=== PATIENT | female | born 1945 | race Caucasian/White ===

== ENCOUNTER → 2017-02-08 | Outpatient (CLI) | payer MEDICARE ==
--- NOTE | 2017-02-08 15:57 | REP ---
THYROID ULTRASOUND: Real-time sonographic evaluation of the thyroid performed and compared to prior study of 01/22/2016. Both lobes are again noted to be enlarged, right lobe measuring 6.6 x 3.7 x 3.4 cm and left lobe 5.7 x 2.6 x 2.5 cm. Multiple nodules and cysts bilaterally appear essentially unchanged compared to the prior exam. There are two adjacent nodules in the right mid aspect which appear stable, meauring 3.4 x 2.6 x 2.1 cm and 1.9 x 1.5 x 1.0 cm. Another adjacent subcentimeter nodule also appears stable measuring 8 mm in maximum diameter. Two cysts are seen in the lower pole measuring 1.4 x 1.1 x 1.2 cm and 1.2 x 0.8 x 1.3 cm. Left mid nodule is stable measuring 3.1 x 2.9 x 2.0 cm. Several small cysts are seen more inferiorly on the left, approximately four in number, measuring up to about 1.1 cm in diameter. IMPRESSION: Stable exam. Signed by Nelson Mccoy MD 02/08/2017 04:10 P
== END ==
LOC: M RAD 11:02
PROVIDERS: ATTEND Physician Assistant Surgical
DX: E04.2 Nontoxic multinodular goiter (principal)

== ENCOUNTER → 2018-02-08 | Outpatient (CLI) | payer MEDICARE | LOC: M RAD 09:09 | DX: E04.1 Nontoxic single thyroid nodule (principal) | CPT/HCPCS: 76536 ==

== ENCOUNTER → 2019-02-05 | Outpatient (CLI) | payer MEDICARE ==
--- NOTE | 2019-02-05 14:16 | REP ---
REASON FOR EXAM: Followup thyroid nodule. PRIOR: 02/08/2018 Today's examination shows the right lobe of the thyroid gland to measure 6.7 x 3.8 x 3.1 cm and left to measure 7.1 x 2.7 x 3 cm. Previously, the right lobe measured 5.8 x 3.3 x 3.3 cm and the left lobe measured 4.9 x 2.5 x 3.3 cm. Once again, there are numerous, multiple cystic and particularly solid nodules seen throughout both lobes including the isthmus. The isthmus today measures 6.2 mm, previously 9 mm. The large solid nodule seen previously on the right today measures 3.3 x 2.5 x 2.2 cm, essentially unchanged from the prior exam. The next largest nodule today measures 2.2 x 1.5 x 1 cm, essentially unchanged from the prior exam. The other smaller nodules are less than a centimeter and they too are unchanged. Left lobe of the thyroid gland, the large nodule previously measuring 2.5 x 2.1 x 2.3 cm today measures 3 x 2 x 1.9 cm. The next larger nodule seen today measures 1.7 x 1 x 1.3 cm, previously 1.2 x 1 x 1 cm. The other smaller nodules are unchanged. IMPRESSION: Thyromegaly and multiple nodules, as described above. Electronically Signed by Sarkis Celeste DO 02/05/2019 04:36 P
== END ==
LOC: M RAD 11:13
PROVIDERS: ATTEND Physician Assistant Surgical
DX: E05.20 Thyrotoxicosis with toxic multinodular goiter without thyrotoxic crisis or storm (principal)

== ENCOUNTER → 2019-02-08 | Outpatient (REF) | payer MEDICARE | LOC: M LAB REF 16:43 | PROVIDERS: ATTEND Surgery | DX: L72.3 Sebaceous cyst (principal) ==

== ENCOUNTER → 2019-03-01 | Outpatient (CLI) | payer MEDICARE ==
[~2019-03-01] MED LIST: LIDOCAINE 1% MDV 20ML VIAL As Ordered ONE
[2019-03-01 10:52] LABS: INR 1.13; PROTHROMBIN TIME 14.7 SECONDS (12.1-14.4)
--- NOTE | 2019-03-02 16:19 | REP ---
Ultrasound-guided bilateral thyroid biopsy This procedure was performed by ORIN Ortega, under the personal supervision of Dr. Mccoy. The patient has a history of a 3.8 x 3.0 x 2.5 cm nodule in the right lobe of the thyroid. As well as a 1.9 x 3.1 x 2.1 cm nodule in the left lobe of the thyroid on an ultrasound dated 02/05/2019. The risks and the benefits of the procedure were explained to the patient and informed consent was obtained both verbally and written. Directly prior to the start of the procedure, a formal time out was completed in the procedure room. Both of the right and left thyroid nodules were localized using ultrasound guidance. The skin was prepped and draped in a sterile fashion. 1% lidocaine was used as a local anesthetic. Using ultrasound guidance 4 fine-needle aspirations were obtained using 25 gauge needles of the right thyroid nodule. Using ultrasound guidance another 4 fine-needle aspirations were obtained using 25 gauge needles of the left thyroid nodule. The patient tolerated the procedure well and there were no immediate complications. After the appropriate amount of monitored convalescence the patient was discharged from the department. Reviewed by ORIN Ortega 03/01/2019 05:01 P Electronically Signed by Nelson Mccoy MD 03/02/2019 04:10 P
== END ==
LOC: M RADPRO 10:19
PROVIDERS: ATTEND Physician Assistant Surgical
DX: D44.0 Neoplasm of uncertain behavior of thyroid gland (principal); E04.2 Nontoxic multinodular goiter; I48.91 Unspecified atrial fibrillation; Z79.84 Long term (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 of oral hypoglycemic drugs; Z79.899 Other long term (current) drug therapy; Z87.891 Personal history of nicotine dependence

== ENCOUNTER 2019-06-20 08:29 | Day surgery (SDC) | payer MEDICARE ==
[~2019-06-20] VITALS: Ht 170.2 cm; Wt 99.8 kg
[~2019-06-20 08:29] MED LIST changes: +ATEN50TA2 PO; +GLIP5TAB20 PO; +HYDR25TAB PO; +JANT4TAB PO; -LIDOCAINE 1% MDV 20ML VIAL As Ordered ONE; +METF850T4 PO; +NS 1,000 ML IV ONE
[2019-06-20] MEDS ORDERED: PROPOFOL 200 MG/20 ML VIAL As Ordered ONE (10:24)
--- NOTE | 2019-06-20 10:39 | ROOR ---
Patient Name: Ania Harkins Procedure Date: 06/20/2019 10:12 AM Date of : 1945 Age: 74 Room: [facility] Gender: Female Note Status: Finalized Procedure: Colonoscopy Indications: Screening for colorectal malignant neoplasm Providers: DO Odalys Barry MD: Amanuel Jones MD Requesting Provider: Medicines: Propofol per Anesthesia Complications: No immediate complications. Procedure: Pre-Anesthesia Assessment: - Prior to the procedure, a History and Physical was performed, and patient medications and allergies were reviewed. The patient is competent. The risks and benefits of the procedure and the sedation options and risks were discussed with the patient. All questions were answered and informed consent was obtained. Patient identification and proposed procedure were verified by the physician, the nurse, the anesthesiologist and the tax examining technician in the endoscopy suite. Mental Status Examination: alert and oriented. Airway Examination: normal oropharyngeal airway and neck mobility. Respiratory Examination: clear to auscultation. CV Examination: normal. Prophylactic Antibiotics: The patient does not require prophylactic antibiotics. Prior Anticoagulants: The patient has taken Coumadin (warfarin), last dose was 4 days prior to procedure. ASA Grade Assessment: II - A patient with mild systemic disease. After reviewing the risks and benefits, the patient was deemed in satisfactory condition to undergo the procedure. The anesthesia plan was to use monitored anesthesia care (MAC). Immediately prior to administration of medications, the patient was re-assessed for adequacy to receive sedatives. The heart rate, respiratory rate, oxygen saturations, blood pressure, adequacy of pulmonary ventilation, and response to care were monitored throughout the procedure. The physical status of the patient was re-assessed after the procedure. The Colonoscope was introduced through the anus and advanced to the ascending colon. The colonoscopy was technically difficult and complex due to significant looping. Successful completion of the procedure was aided by applying abdominal pressure and performing the maneuvers documented (below) in this report. The patient tolerated the procedure well. Findings: A few small-mouthed diverticula were found in the sigmoid colon. Internal hemorrhoids were found during retroflexion. The hemorrhoids were mild and Grade I (internal hemorrhoids that do not prolapse). The exam was otherwise without abnormality on direct and retroflexion views. Impression: - Diverticulosis in the sigmoid colon. - Internal hemorrhoids. - The examination was otherwise normal on direct and retroflexion views. - No specimens collected. Recommendation: - Patient has a contact number available for emergencies. The signs and symptoms of potential delayed complications were discussed with the patient. Return to normal activities tomorrow. Written discharge instructions were provided to the patient. - Repeat colonoscopy in 10 years for screening purposes. - Return to my office PRN. Nelson Palm DO 06/20/2019 10:39:09 AM Electronically signed by Nelson Palm DO Number of Addenda: 0 Note Initiated On: 06/20/2019 10:12 AM Estimated Blood Loss: Estimated blood loss: none.
[2019-06-20 11:00] VITALS: BP 153/85
== END 2019-06-20 11:16 | disposition home or self-care (01) ==
LOC: M OPP 08:29
PROVIDERS: ATTEND Surgery
DX: Z12.11 Encounter for screening for malignant neoplasm of colon (principal); K64.0 First degree hemorrhoids; K57.30 Diverticulosis of large intestine without perforation or abscess without bleeding; E11.9 Type 2 diabetes mellitus without complications; I48.91 Unspecified atrial fibrillation; F17.210 Nicotine dependence, cigarettes, uncomplicated; Z88.8 Allergy status to other drugs, medicaments and biological substances

== ENCOUNTER → 2019-07-02 | Outpatient (CLI) | payer MEDICARE ==
[~2019-07-02] MED LIST changes: -NS 1,000 ML IV ONE
--- NOTE | 2019-07-02 13:39 | REP ---
REASON: Followup nodules. Multiple priors were reviewed, the latest of which is dated 02/05/2019. The right lobe of the thyroid gland measures 6.1 x 3.9 x 3.1 cm and left lobe measures 5.4 x 3.0 x 2.8 cm. The isthmus measures 6 mm. The prior examination showed the right lobe to measure 6.7 x 3.8 x 3.1 cm and left lobe to measure 7.1 x 2.7 x 3.0 cm with the isthmus measuring again 6 mm. Multiple solid nodules are seen bilaterally completely unchanged from the prior exam. The largest nodule on the right measured 3.5 x 2.5 x 2.4 cm and the next largest measured 2.7 x 1.7 x 1.4 cm with the third largest measuring 1.1 x 0.8 x 0.9 cm. These are unchanged. The largest three on the left measure 3.1 x 2.2 x 2.3 cm, 1.4 x 0.9 x 1.3 cm, and 1.0 x 0.9 x 0.8 cm. These are unchanged. IMPRESSION: No significant change from the prior exam. Multinodular goiter with thyromegaly as described above. Electronically Signed by Sarkis Celeste DO 07/02/2019 02:39 P
== END ==
LOC: M RAD 09:00
PROVIDERS: ATTEND Surgery
DX: E04.1 Nontoxic single thyroid nodule (principal)

== ENCOUNTER → 2020-07-07 | Outpatient (CLI) | payer MEDICARE ==
--- NOTE | 2020-07-14 14:26 | REP ---
THYROID ULTRASOUND COMPARISON: 07/02/2019 as well as other prior exams. FINDINGS: Both lobes of the thyroid are enlarged with diffuse heterogeneous echotexture. Right lobe measures 6.1 x 3.7 x 2.9 cm and left lobe 5.5 x 2.8 x 2.8 cm. Two adjacent solid heterogeneous nodules in the mid right lobe are stable in size, the larger measuring 3.4 x 2.4 x 2.1 cm and the other along the lateral aspect measuring 2.3 x 1.3 x 1.3 cm. There is a simple cyst in the right lower pole 1.3 cm in diameter. In the left upper pole, there is a complex solid nodule which is stable in size measuring 3.1 x 2.3 x 2.3 cm. Just below that there is a cyst with a thick septation 1.3 x 1.1 x 1.1 cm, slightly increased since prior study when it measured about 1 cm in diameter. There is an anechoic simple cyst in the isthmus 6 mm in diameter and another anechoic simple cyst in the left lower pole 1.6 x 1.2 x 1.5 cm. IMPRESSION: Thyromegaly with stable bilateral solid thyroid nodules as discussed above. MTDD
== END ==
LOC: M RAD 09:47
PROVIDERS: ATTEND Surgery
DX: E04.1 Nontoxic single thyroid nodule (principal)

== ENCOUNTER → 2020-07-21 | Outpatient (REF) | payer MEDICARE | LOC: M SFHCPLAZ 17:18 | PROVIDERS: ATTEND Physician Assistant | DX: B35.3 Tinea pedis (principal) | CPT/HCPCS: 87101; G0463 ==

== ENCOUNTER 2020-08-26 09:07 | Outpatient (RCR) | payer MEDICARE | END 2020-09-01 | LOC: M PT 09:07 | PROVIDERS: ATTEND Physician Assistant | DX: M51.36 Other intervertebral disc degeneration, lumbar region (principal); M47.896 Other spondylosis, lumbar region ==

== ENCOUNTER 2020-09-12 10:41 | Outpatient (RCR) | payer MEDICARE | END 2020-10-02 | LOC: M PT 10:41 | PROVIDERS: ATTEND Physician Assistant | DX: Z47.89 Encounter for other orthopedic aftercare (principal); M51.36 Other intervertebral disc degeneration, lumbar region; M47.896 Other spondylosis, lumbar region ==

== ENCOUNTER → 2020-10-23 | Outpatient (REF) | payer MEDICARE ==
[~2020-10-23] MED LIST changes: +HYDR-3490 PO; -HYDR25TAB PO
[2020-10-23 17:01] LABS: INR 1.87; PROTHROMBIN TIME 21.9 SECONDS (12.5-14.3)
== END ==
LOC: M LAB REF 16:09
PROVIDERS: ATTEND Family Medicine
DX: Z51.81 Encounter for therapeutic drug level monitoring (principal)

== ENCOUNTER → 2020-11-19 | Outpatient (CLI) | payer MEDICARE ==
[~2020-11-19] MED LIST changes: +CEPH500C PO
--- NOTE | 2020-11-19 15:13 | REP ---
INDICATION: RED SWOLLEN LLE, R/O DVT. COMPARISON: None. TECHNIQUE: Left lower extremity duplex venous ultrasound. FINDINGS: The deep veins are anechoic and fully compressible from the groin to the popliteal fossa in the left lower extremity. Color flow imaging is homogeneous. Spectral Doppler interrogation demonstrates intact respiratory variation in flow and normal manual augmentation of flow. There is no evidence of deep vein thrombosis. IMPRESSION: Negative left lower extremity duplex venous ultrasound. No evidence of deep vein thrombosis. <Electronically signed by Enoc Galindo > 11/19/20 [id number]
== END ==
LOC: M RAD 14:34
PROVIDERS: ATTEND Registered Nurse
DX: M79.89 Other specified soft tissue disorders (principal); M79.662 Pain in left lower leg

== ENCOUNTER 2020-11-24 09:43 | Inpatient (IN) | payer MEDICARE ==
[~2020-11-24] VITALS: Ht 170.2 cm; Wt 96.9 kg
[~2020-11-24 09:43] MED LIST changes: -CEPH500C PO
[2020-11-24] MEDS ORDERED: CEPH500C PO (09:50)
--- OUTSIDE RECORDS SUMMARY | 2020-11-24 10:41 | CCD | Continuity of Care Document ---
Author Author Ania ARRIAGA [facility] Organization Unknown Address [address] [facility] [address] [place] [address] Phone [phone] Care Team Providers Care Assistant Media Planner Name Role Phone Amanuel Jones MD AUTM [phone] Alber Agustin MD AUTM [phone] Hector Roblero III, MD AUTM Unavailable [facility] AUTM Problems Active Problems Provider Date Type 2 diabetes mellitus ALLISON Lyons Onset: 01/22/20 15 Atrial fibrillation Amanuel Jones M.D. Onset: 03/31/2015 Hyperlipoproteinemia Onset: Essential hypertension Amanuel Jones M.D. Onset: 5 Social History Type Date Description Comments Sex Unknown ETOH Use Rarely consumes alcohol Tobacco Use Start: Unknown End: Unknown Patient is a former smoker quit 2010 Allergies, Adverse Reactions, Alerts Active Allergies Reaction Severity Comments Date Vasotec 01/21/2015 Zocor 01/21/2015 Lipitor 01/21/2015 Medications Active Medications SIG Qnty Indications Ordering Provide r Date Cephalexin 750mg Capsules take one capsule by mouth bid x 7 days 14caps Felipe Spain MD 11/03 Ciclopirox Olamine 0.77% Cream apply to area on foot twice a day 60gm Amanuel Jones M.D. Cozaar 100mg Tablets 1 by mouth every day 90tabs Amanuel Jones M.D. 12/12/2018 Accu-Chek Kathleen Plus Strips test twice a day or as directed dx:e11.9 100units Amanuel Jones M.D. 06/30/2018 Crestor 5mg Tablets 1/2 by mouth by mouth 3 x per week 14tabs I48.2 Amanuel Jones M.D. 02/19/2016 Metformin HCL 850mg Tablets 1 by mouth three times a day 270tabs Charlene Gonzalez DO 08/22/2015 Hydrochlorothiazide 25mg Tablets 1 by mouth every day 90sarah Jones M.D. 08/21/2015 Jantoven 4mg Tablets 1 daily or as directed 90tayamilet Jones M.D. Atenolol 50mg Tablets 1 by mouth every morning and 1/2 tablet each evening 135tayamilet chiu M.D. Glipizide ER 5mg Tablets ER 24HR 1 tablet by mouth three times a day 270sarah Jones M.D. History Medications Cephalexin 500mg Capsules take one tablet by mouth 2 times daily x 7 days 14caps BRANDI Caputo JR 05/26/2020 - 06/27/2020 Administration Of Flu Vaccine Inj ection Unknown Medications Administered in Office Medication SIG Qnty Indications Ordering Provider Date Administration Of Flu Vaccine Inj mirna Jones M.D. 06/18/2020 Immunization Adminstration,1 Vaccine/Tox oid Injection Amanuel Jones M.D. 019 Administration Of Flu Vaccine Inj mirna Jones M.D. 07/31/2019 Administration Of Flu Vaccine Inj mirna Jones M.D. 06/30/2018 Administration Of Flu Vaccine Inj monicaion Amanuel Jones M.D. 07/26/2017 Administration Of Flu Vaccine Inj mirna Jones M.D. 09/07/2016 Administration Of Flu Vaccine Inj mirna Jones M.D. 08/05/2015 Immunizations CPT Code Status Date Vaccine Lot # 53675 Given 06/18/2020 Influenza Vaccin e Quadrivalent Preser/Antibiotic Free Im Use [id number] 25027 Given 09/10/2019 Pneumovax 23 [id number] 90490 Given 09/10/2019 Adacel- Tetanus Diphtheria P ertussis (Age64 & Under) [id number] 61900 Given 07/31/2019 Influenza Vaccin e Quadrivalent Preser/Antibiotic Free Im Use [id number] 02072 Given 06/30/2018 Influenza Virus Vaccine, Quadrivalent (Cciiv4), Derived From 4 Given 07/26/2017 Influenza Vaccin e Quadrivalent Preser/Antibiotic Free Im Use [id number] Q2037 Given 09/07/2016 Fluvirin Virus Vaccine 50166 01 Q2037 Given 08/05/2015 Fluvirin Virus Vaccine 91110 01 38238 Given 08/06/2014 Influenza Virus Vaccine 50851 Given 07/25/2013 Influenza Virus Vaccine 94805 Given 07/20/2012 Influenza Virus Vaccine 25384 Given 07/13/2011 Influenza Virus Vaccine 87834 Given 07/13/2011 Influenza Virus Vaccine 77641 Given 10/05/2010 Pneumovax 23 31748 Given 07/03/2010 Influenza Virus Vaccine 44791 Given 12/03/2002 Adacel- Tetanus Diphtheria P ertussis (Age64 & Under) Vital Signs Date Vital Result Comment 11/19/2020 1:41pm BP Systolic 104 mmHg RT Arm BP Diastolic 60 mmHg RT Arm Heart Rate 80 /min Height 66 inches 5'6" Weight 216.00 lb BMI (Body Mass Index) 34.9 kg/m2 10/07/2020 10:56am Weight 216.00 lb Results Test Acquired Date Facility Test Result H/L Range Note Complete Blood Count 11/19/2020 [facility] Swimming Instructor: [place] [address] [phone] WBC 10.8 x10*3/UL 4.1 - 10.9 RBC 3.90 x10*6/UL Low 4.20 - 6.30 Hemoglobin 11.1 g/dL Low 12.0 - 18.0 1 Hematocrit 32.7 % Low 37.0 - 51.0 MCV 83.8 fL 80.0 - 97.0 MCH 28.4 pg 26.0 - 32.0 MCHC 33.9 g/dL 31.0 - 38.0 RDW 14.6 % High 11.6 - 13.7 PLT 345 x10*3/UL 140 - 440 MPV 8.8 FL 7.8 - 11.0 Lymph % 9.2 % Low 10.0 - 58.5 Mid % 3.0 % 1.7 - 9.3 Neut % 87.8 % 37.0 - 92.0 Lymph # 1.0 x10*3/UL 0.6 - 4.1 Mid # 0.3 x10*3/UL 0.1 - 0.6 Neut # 9.5 x10*3/UL High 2.0 - 7.8 Laboratory test finding 11/19/2020 [facility] Swimming Instructor: [place] [address] [phone] Sed Rate 55 mm/hr High 0 - 15 Laboratory test finding 11/19/2020 [facility] [address] [place] [address] [phone] High Sensitivity C-Reactive Protein <pending> Xray 10/28/2020 [facility] [address] [place] [address] [phone] Dexa/Bone Density <pending> 3D Bi-Lateral Mammogram <pending> Prothrombin Time/Inr 10/23/2020 [facility] [address] [place] [address] [phone] Prothrombin Time 21.9 seconds High 12.5-14.3 Inr 1.87 Normal 2 Laboratory test finding 10/07/2020 [facility] 2.4 Complete Blood Count 09/12/2020 [facility] Swimming Instructor: [place] [address] [phone] WBC 9.1 x10*3/UL 4.1 - 10.9 RBC 4.04 x10*6/UL Low 4.20 - 6.30 Hemoglobin 12.0 g/dL 12.0 - 18.0 Hematocrit 35.2 % Low 37.0 - 51.0 MCV 87.0 fL 80.0 - 97.0 MCH 29.8 pg 26.0 - 32.0 MCHC 34.2 g/dL 31.0 - 38.0 RDW 14.0 % High 11.6 - 13.7 PLT 393 x10*3/UL 140 - 440 MPV 8.7 FL 7.8 - 11.0 Lymph % 12.1 % 10.0 - 58.5 Mid % 3.1 % 1.7 - 9.3 Neut % 84.8 % 37.0 - 92.0 Lymph # 1.1 x10*3/UL 0.6 - 4.1 Mid # 0.3 x10*3/UL 0.1 - 0.6 Neut # 7.7 x10*3/UL 2.0 - 7.8 A1c 09/12/2020 [facility] , Swimming Instructor: Dr Felipe [place] [address] [phone] Hba1c 7.4 % High <5.7 3 Est Avg Glucose 166 mg/dL High 60 - 110 Comprehensive Chem Profile 09/12/2020 [facility], Swimming Instructor: Dr Felipe [place] [address] [phone] Glucose 241 mg/dL High 74 - 99 4 BUN 24 mg/dL High 7 - 18 Creatinine 0.9 mg/dL 0.6 - 1.3 Sodium 141 mEq/L 136 - 145 Potassium 4.6 mEq/L 3.5 - 5.1 Chloride 102 mEq/L 98 - 107 Carbon Dioxide 29 mEq/L 21 - 32 Calcium 9.6 mg/dL 8.5 - 10.1 Alk. Phosphatase 103 mg/dL 46 - 116 Total Bilirubin 0.6 mg/dL 0.2 - 1.0 Ast (Sgot) 17 U/L 15 - 37 Alt (SGPT) 26 U/L 12 - 78 Albumin 3.5 g/dL 3.4 - 5.0 Total Protein 7.2 g/dL 6.4 - 8.2 A/G Ratio 0.95 CALC Low 1.00 - 1.90 GFR >= 60 mL/min >60 GFR >= 60 mL/min >60 5 Laboratory test finding 09/12/2020 [facility] Swimming Instructor: Dr Felipe [place] [address] [phone] Thyroid Stimulating Hormone 1.88 uIU/mL 0.3 6 - 3.74 Laboratory test finding 09/03/2020 [facility] 1.7 Laboratory test finding 08/19/2020 [facility] 1.4 Laboratory test finding 07/18/2020 [facility] 1.7 Microalbumin/Creatinine Urine 06/27/2020 [facility], Swimming Instructor: Dr Felipe [place] [address] [phone] Microalbumin Urine 19.2 mg/L 1.3 - 20.0 Urine Creatinine 44.5 mg/dL 30.0 - 125.0 Microalb/Creat Ratio 43.1 ug/mg High 0.0 - 30.0 A1c 06/26/2020 [facility]: Dr Felipe [place] [address] [phone] Hba1c 7.9 % High <5.7 6 Est Avg Glucose 180 mg/dL High 60 - 110 Comprehensive Chem Profile 06/26/2020 [facility] Sw[facility] Instructor: [place] [address] [phone] Glucose 136 mg/dL High 74 - 99 7 BUN 19 mg/dL High 7 - 18 Creatinine 0.9 mg/dL 0.6 - 1.3 Sodium 137 mEq/L 136 - 145 Potassium 3.9 mEq/L 3.5 - 5.1 Chloride 100 mEq/L 98 - 107 Carbon Dioxide 28 mEq/L 21 - 32 Calcium 9.0 mg/dL 8.5 - 10.1 Alk. Phosphatase 93 mg/dL 46 - 116 Total Bilirubin 0.5 mg/dL 0.2 - 1.0 Ast (Sgot) 15 U/L 15 - 37 Alt (SGPT) 22 U/L 12 - 78 Albumin 3.4 g/dL 3.4 - 5.0 Total Protein 7.2 g/dL 6.4 - 8.2 A/G Ratio 0.89 CALC Low 1.00 - 1.90 GFR >= 60 mL/min >60 GFR >= 60 mL/min >60 8 Lipid Profile 06/26/2020 [facility] Sw[facility] Instructor: Dr Felipe [place] [address] [phone] Cholesterol 177 mg/dL 131 - 200 Triglycerides 99 mg/dL 30 - 150 HDL Cholesterol 51 mg/dL 35 - 60 LDL (Calculated) 106 CALC 50 - 159 Laboratory test finding 06/18/2020 [facility] 1.7 1 NOTE: RESULT VERIFIED. 2 THERAPUTIC HUMAN INR VALUES INDICATIONS NORMAL RANGES PROPHYLAXIS/TREATMENT OF: VENOUS THROMBOSIS 2.0-3.0 PULMONARY EMBOLISM 2.0-3.0 PREVENTION OF SYSTEMIC EMBOLISM FROM: TISSUE HEART VALVES 2.0-3.0 ACUTE MYOCARDIAL INFARCTION 2.0-3.0 VALVULAR HEART DISEASE 2.0-3.0 ATRIAL FIBRILLATION 2.0-3.0 MECHANICAL VALVES(HIGH RISK) 2.5-3.5 RECURRENT MYOCARDIAL INFARCTION 2.5-3.5 3 Lab Result Notes: Pre-Diabetes 5.7 - 6.4 % Diabetes = or > 6.5% 4 100-125 mg/dL PRE-DIABET ES/FASTING >126 mg/dL DIABETES/FASTING 5 CHRONIC KIDNEY DISEASE STAGI NG PER NKF STAGE I & II GFR >= 60 NORMAL TO MILDLY DECREASED STAGE III GFR 30-59 MODERATELY DECREASED STAGE IV GFR 15-29 SEVERELY DECREASED STAGE V GFR <15 VERY LITTLE GFR LEFT ESRD GFR <15 ON SWIMMING POOL ATTENDANT 6 Lab Result Notes: Pre-Diabetes 5.7 - 6.4 % Diabetes = or > 6.5% 7 100-125 mg/dL PRE-DIABET ES/FASTING >126 mg/dL DIABETES/FASTING 8 CHRONIC KIDNEY DISEASE STAGI NG PER NKF STAGE I & II GFR >= 60 NORMAL TO MILDLY DECREASED STAGE III GFR 30-59 MODERATELY DECREASED STAGE IV GFR 15-29 SEVERELY DECREASED STAGE V GFR <15 VERY LITTLE GFR LEFT ESRD GFR <15 ON SWIMMING POOL ATTENDANT Procedures Date Code Description Status 11/06/2020 [id number] Mammogram Completed 10/28/2020 [id number] Bone Mineral Density Test Comple [facility] 10/28/2020 [id number] Mammogram Completed 05/22/2020 [id number] Diabetic Retinal Eye Exam Comple [facility] 03/27/2020 [id number] Diabetic Retinal Eye Exam Comple [facility] 10/12/2019 [id number] Mammogram Completed 10/09/2019 [id number] Diabetic Retinal Eye Exam Comple [facility] 06/20/2019 [id number] Colonoscopy Completed 12/14/2018 [id number] Diabetic Retinal Eye Exam Comple [facility] 11/13/2018 [id number] Diabetic Retinal Eye Exam Comple [facility] 09/29/2018 [id number] Mammogram Completed 04/07/2018 971731814 Diabetic Retinal Eye Exam Comple [facility] 12/20/2017 [id number] Diabetic Retinal Eye Exam Comple [facility] 12/14/2017 [id number] Diabetic Retinal Eye Exam Comple [facility] 09/27/2017 [id number] Mammogram Completed 06/09/2017 [id number] Diabetic Retinal Eye Exam Comple meet 04/07/2017 [id number] Diabetic Retinal Eye Exam Comple meet 11/25/2016 [id number] Diabetic Retinal Eye Exam Comple meet 09/23/2016 [id number] Mammogram Completed 02/01/2016 [id number] Diabetic Foot Exam Completed 01/21/2016 [id number] Diabetic Foot Exam Completed 01/20/2016 [id number] Diabetic Foot Exam Completed 10/14/2015 [id number] Diabetic Retinal Eye Exam Comple [facility] 09/04/2015 [id number] Mammogram Completed 02/26/2015 [id number] Diabetic Retinal Eye Exam Comple [facility] 08/03/2014 [id number] Mammogram Completed 08/25/2011 [id number] Bone Mineral Density Test Comple [facility] 09/10/2008 [id number] Colonoscopy Completed 2007 [id number] Bone Mineral Density Test [facility] Medical Devices Description No Information Available Encounters Type Date Location Provider Dx Diagnosis Office Visit 09/24/2020 9:00a [facility] Amanuel Jones M.D. 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 Yoav Tobin JR, PA L03.116 Cellulitis of left lower [place] b Assessments Date Code Description Provider 11/19/2020 R60.0 Localized edema Anders Sarmiento NP 11/19/2020 M79.662 Pain in left lower leg ALLISON Krishnamurthy 10/23/2020 Z51.81 Encounter for therapeutic drug l evel monitoring Amanuel Jones M.D. 10/23/2020 Z51.81 Encounter for therapeutic drug l evel monitoring Lab Schedule 10/23/2020 I48.21 Permanent atrial fibrillation Rowdy Jones M.D. 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 09/24/2020 I48.20 Chronic atrial fibrillation, uns pecgladis Jones M.D. 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 09/24/2020 E11.65 Type 2 diabetes mellitus with hy perglycemia Amanuel Jones M.D. 09/24/2020 M48.07 Spinal stenosis, lumbosacral reg ion Amanuel Jones M.D. 09/24/2020 E11.42 Type 2 diabetes mellitus with di abetic polyneuropathy Amanuel Jones M.D. 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 09/12/2020 I48.20 Chronic atrial fibrillation, uns pecgladis Jones M.D. 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 09/12/2020 Z79.01 [facility] (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 Lab Schedule 09/12/2020 E11.65 Type 2 diabetes mellitus with hy perglycemia Amanuel Jones M.D. 09/12/2020 E11.65 Type 2 diabetes mellitus with hy perglycemia Lab Schedule 09/12/2020 E78.00 Pure hypercholesterolemia, unspe cified Amanuel Jones M.D. 09/12/2020 E78.00 Pure hypercholesterolemia, unspe cified Lab Schedule 09/03/2020 Z51.81 Encounter for therapeutic drug l evel monitoring Lila Le Gates, [facility] PSYCHI[facility] 09/03/2020 Z51.81 Encounter for therapeutic drug l evel monitoring Protime 09/03/2020 I48.20 Chronic atrial fibrillation, uns pecified Lila Le Gates, [facility] 09/03/2020 I48.20 Chronic atrial fibrillation, uns pecified Protime 09/03/2020 Z79.01 terminal make up operator (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 Lila Le Gates, [facility] 09/03/2020 Z79.01 terminal make up operator (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 Protime 08/19/2020 Z51.81 Encounter for therapeutic drug l evel monitoring Lila Le Gates, [facility] 08/19/2020 Z51.81 Encounter for therapeutic drug l evel monitoring Protime 08/19/2020 I48.20 Chronic atrial fibrillation, uns pecified Lila Le Gates, [facility] 08/19/2020 I48.20 Chronic atrial fibrillation, uns pecified Protime 08/19/2020 Z79.01 terminal make up operator (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 Lila Le Gates, [facility] 08/19/2020 Z79.01 terminal make up operator (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 Protime 07/18/2020 Z51.81 Encounter for therapeutic drug l evel monitoring Lial Le Gates, [facility] 07/18/2020 Z51.81 Encounter for therapeutic drug l evel monitoring Protime 07/18/2020 I48.20 Chronic atrial fibrillation, uns pecified Lila Le Gates, [facility] 07/18/2020 I48.20 Chronic atrial fibrillation, uns pecified Protime 07/18/2020 Z79.01 [facility] (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 Lila Le Gates, [facility] 07/18/2020 Z79.01 [facility] (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 Protime 06/27/2020 E11.65 Type 2 diabetes mellitus with hy perglycemia Amanuel Jones M.D. 06/27/2020 Z13.89 Encounter for screening for othe r disorder Amanuel Jones M.D. 06/27/2020 E78.00 Pure hypercholesterolemia, unspe cified Amanuel Jones M.D. 06/27/2020 I48.20 Chronic atrial fibrillation, uns pecified Amanuel Jones M.D. 06/27/2020 Z79.01 [facility] (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 Amanuel Jones M.D. 06/27/2020 M48.07 Spinal stenosis, lumbosacral reg ion Amanuel Jones M.D. 06/27/2020 E11.42 Type 2 diabetes mellitus with di abetic polyneuropathy Amanuel Jones M.D. 06/27/2020 E11.319 Type 2 diabetes mellitus with un specified diabetic retinopat Amanuel Jones M.D. 06/27/2020 M81.0 Age-related osteoporosis without current pathological fracture Amanuel Jones M.D. 06/27/2020 I73.9 Peripheral vascular disease, uns pecgladis Jones M.D. 06/26/2020 E11.65 Type 2 diabetes mellitus with hy perglycemia Amanuel Jones M.D. 06/26/2020 E11.65 Type 2 diabetes mellitus with hy perglycemia Lab Schedule 06/26/2020 E78.00 Pure hypercholesterolemia, unspe cified Amanuel Jones M.D. 06/26/2020 E78.00 Pure hypercholesterolemia, unspe cified Lab Schedule 06/26/2020 I10 Essential (primary) hypertension Amanuel Jones M.D. 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 06/18/2020 Z23 Encounter for immunization Proti me 05/26/2020 L03.116 Cellulitis of left lower limb Ro kane Tobin JR, PA Plan of Treatment Future Appointment(s):* 11/24/2020 11:15 am - [facility] at [facility] * 02/13/2021 11:30 am - Amanuel Jones M.D. at [facility] 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 * M81.0 Age-related osteoporosis w/o current pathological fracture * I73.9 Peripheral vascular disease, unspecified * Functional Status Description No Information Available Mental Status Description No Information Available Referrals Refer to Reason for Referral Status Appt Date Sole Watson DO URGENT CONSULT FOR ABNORMAL MAMMOGRAM [facility] [address] [place] [address] [phone] [facility] TWISTING OPERATOR CONSULT FOR CELLULITIS LT FOOT Sent 06/12/2020 [address] [place] [address] [phone]
--- OUTSIDE RECORDS SUMMARY | 2020-11-24 10:41 | CCD | Continuity of Care Document ---
Author Author Ania ARRIAGA [facility] Organization Unknown Address [address] [facility] [address] [place] [address] Phone [phone] Care Team Providers Care Ug Designer Name Role Phone Amanuel Jones MD AUTM [phone] Alber Agustin MD AUTM [phone] Hector Roblero III, MD AUTM Unavailable [facility] AUTM Problems Active Problems Provider [...] SIG Qnty Indications Ordering Provide r Date Ciclopirox Olamine 0.77% Cream apply to area [...] 25mg Tablets 1 by mouth every day 90tayamilet Jones M.D. 08/21/2015 Jantoven 4mg Tablets 1 [...] M.D. 019 Administration Of Flu Vaccine Inj monicaion Amanuel Jones M.D. 07/31/2019 Administration Of Flu Vaccine Inj monicaion Amanuel Jones M.D. 06/30/2018 Administration Of Flu Vaccine Inj monicaion Amanuel Jones M.D. 07/26/2017 Administration Of Flu Vaccine Inj monicaion Amanuel Jones M.D. 09/07/2016 Administration Of Flu Vaccine Inj monicaion Amanuel Jones M.D. 08/05/2015 Immunizations CPT Code Status Date Vaccine Lot # [id number] Given 06/18/2020 Influenza Vaccin e Quadrivalent Preser/Antibiotic Free Im Use [id number] 14439 Given 09/10/2019 Pneumovax 23 [id number] 93800 Given 09/10/2019 Adacel- Tetanus Diphtheria P ertussis (Age64 & Under) [id number] 31169 Given 07/31/2019 Influenza Vaccin e Quadrivalent Preser/Antibiotic Free Im Use [id number] 80628 Given 06/30/2018 Influenza Virus Vaccine, Quadrivalent ([id number]), Derived From 2 Given 07/26/2017 Influenza Vaccin e Quadrivalent Preser/Antibiotic Free Im Use [id number] Q2037 Given 09/07/2016 Fluvirin Virus Vaccine [id number] 01 Q2037 Given 08/05/2015 Fluvirin Virus Vaccine 82348 01 00432 Given 08/06/2014 Influenza Virus Vaccine 35089 Given 07/25/2013 Influenza Virus Vaccine 49316 Given 07/20/2012 Influenza Virus Vaccine 28898 Given 07/13/2011 Influenza Virus Vaccine 28587 Given 07/13/2011 Influenza Virus Vaccine 64684 Given 10/05/2010 Pneumovax 23 37657 Given 07/03/2010 Influenza Virus Vaccine 10751 Given 12/03/2002 Adacel- Tetanus Diphtheria P ertussis (Age64 & Under) Vital Signs Date Vital Result Comment 11/19/2020 1:41pm BP Systolic 104 mmHg RT Arm BP Diastolic 60 mmHg RT Arm Heart Rate 80 /min Height 66 inches 5'6" Weight 216.00 lb BMI (Body Mass Index) 34.9 kg/m2 10/07/2020 10:56am Weight 216.00 lb Results Test Acquired Date Facility Test Result H/L Range Note Laboratory test finding 11/19/2020 [facility] o[facility] lawrence Adult Crossing Guard: [place] [address] [phone] Sed Rate <pending> Laboratory test finding 11/19/2020 [facility] [address] [place] [address] [phone] High Sensitivity C-Reactive Protein <pending> Xray 10/28/2020 [facility] [address], [place] [id number] [phone] Dexa/Bone Density <pending> 3D Bi-Lateral Mammogram <pending> Prothrombin Time/Inr 10/23/2020 [facility] [address] [place] [address] [phone] Prothrombin Time 21.9 seconds High 12.5-14.3 Inr 1.87 Normal 1 Laboratory test finding 10/07/2020 [facility] 2.4 Complete Blood Count 09/12/2020 [facility] Adult Crossing Guard: [place] [address] [phone] WBC 9.1 x10*3/UL 4.1 - 10.9 RBC [...] 7.7 x10*3/UL 2.0 - 7.8 A1c 09/12/2020 [facility] Adult Crossing Guard: [place] [address] [phone] Hba1c 7.4 % High <5.7 2 Est Avg Glucose 166 mg/dL High 60 - 110 Comprehensive Chem Profile 09/12/2020 [facility] Adult Crossing Guard: [place] [address] [phone] Glucose 241 mg/dL High 74 - 99 3 BUN 24 mg/dL High 7 - 18 [...] mL/min >60 GFR >= 60 mL/min >60 4 Laboratory test finding 09/12/2020 [facility] isnaldo, Adult Crossing Guard: Dr Felipe Spain [place], [place] [id number] [phone] Thyroid Stimulating Hormone 1.88 uIU/mL 0.3 6 - 3.74 Laboratory test finding 09/03/2020 [facility] 1.7 Laboratory test finding 08/19/2020 [facility] 1.4 Laboratory test finding 07/18/2020 [facility] 1.7 Microalbumin/Creatinine Urine 06/27/2020 [facility], Adult Crossing Guard: [place] [address] [phone] Microalbumin Urine 19.2 mg/L 1.3 - 20.0 Urine Creatinine 44.5 mg/dL 30.0 - 125.0 Microalb/Creat Ratio 43.1 ug/mg High 0.0 - 30.0 A1c 06/26/2020 [facility] , Adult Crossing Guard: Dr Felipe Spain [place], [place] [address] [phone] Hba1c 7.9 % High <5.7 5 Est Avg Glucose 180 mg/dL High 60 - 110 Comprehensive Chem Profile 06/26/2020 [facility], Adult Crossing Guard: Dr Felipe Spain [place], [place] [address] [phone] Glucose 136 mg/dL High 74 - 99 6 BUN 19 mg/dL High 7 - 18 [...] mL/min >60 GFR >= 60 mL/min >60 7 Lipid Profile 06/26/2020 [facility] Adult Crossing Guard: Dr Felipe Spain [place], [place] [address] [phone] Cholesterol 177 mg/dL 131 - 200 Triglycerides 99 mg/dL 30 - 150 HDL Cholesterol 51 mg/dL 35 - 60 LDL (Calculated) 106 CALC 50 - 159 Laboratory test finding 06/18/2020 [facility] 1.7 1 THERAPUTIC HUMAN INR VALUES INDICATIONS NORMAL RANGES PROPHYLAXIS/TREATMENT OF: VENOUS THROMBOSIS 2.0-3.0 PULMONARY EMBOLISM 2.0-3.0 PREVENTION OF SYSTEMIC EMBOLISM FROM: TISSUE HEART VALVES 2.0-3.0 ACUTE MYOCARDIAL INFARCTION 2.0-3.0 VALVULAR HEART DISEASE 2.0-3.0 ATRIAL FIBRILLATION 2.0-3.0 MECHANICAL VALVES(HIGH RISK) 2.5-3.5 RECURRENT MYOCARDIAL INFARCTION 2.5-3.5 2 Lab Result Notes: Pre-Diabetes 5.7 - 6.4 % Diabetes = or > 6.5% 3 100-125 mg/dL PRE-DIABET ES/FASTING >126 mg/dL DIABETES/FASTING 4 CHRONIC KIDNEY DISEASE STAGI NG PER NKF STAGE I & II GFR >= 60 NORMAL TO MILDLY DECREASED STAGE III GFR 30-59 MODERATELY DECREASED STAGE IV GFR 15-29 SEVERELY DECREASED STAGE V GFR <15 VERY LITTLE GFR LEFT ESRD GFR <15 ON PRINTED CIRCUIT BOARD PANELS DEBURRER 5 Lab Result Notes: Pre-Diabetes 5.7 - 6.4 % Diabetes = or > 6.5% 6 100-125 mg/dL PRE-DIABET ES/FASTING >126 mg/dL DIABETES/FASTING 7 CHRONIC KIDNEY DISEASE STAGI NG PER NKF STAGE I & II GFR >= 60 NORMAL TO MILDLY DECREASED STAGE III GFR 30-59 MODERATELY DECREASED STAGE IV GFR 15-29 SEVERELY DECREASED STAGE V GFR <15 VERY LITTLE GFR LEFT ESRD GFR <15 ON PRINTED CIRCUIT BOARD PANELS DEBURRER Procedures Date Code Description Status 11/06/2020 [id number] Mammogram Completed 10/28/2020 [id number] Bone Mineral Density Test [facility] 10/28/2020 [id number] Mammogram Completed 05/22/2020 [id number] Diabetic Retinal Eye Exam [facility] 03/27/2020 064082360 Diabetic Retinal Eye Exam [facility] 10/12/2019 [id number] Mammogram Completed 10/09/2019 [id number] Diabetic Retinal Eye Exam [facility] 06/20/2019 [id number] Colonoscopy Completed 12/14/2018 [id number] Diabetic Retinal Eye Exam [facility] 11/13/2018 [id number] Diabetic Retinal Eye Exam [facility] 09/29/2018 [id number] Mammogram Completed 04/07/2018 [id number] Diabetic Retinal Eye Exam [facility] 12/20/2017 [id number] Diabetic Retinal Eye Exam [facility] 12/14/2017 490922172 Diabetic Retinal Eye Exam [facility] 09/27/2017 [id number] Mammogram Completed 06/09/2017 776628164 Diabetic Retinal Eye Exam [facility] 04/07/2017 [id number] Diabetic Retinal Eye Exam [facility] 11/25/2016 985023968 Diabetic Retinal Eye Exam [facility] 09/23/2016 74658520 Mammogram Completed 02/01/2016 [id number] Diabetic Foot Exam Completed 01/21/2016 [id number] Diabetic Foot Exam Completed 01/20/2016 911400729 Diabetic Foot Exam Completed 10/14/2015 [id number] Diabetic Retinal Eye Exam [facility] 09/04/2015 [id number] Mammogram Completed 02/26/2015 501415823 Diabetic Retinal Eye Exam [facility] 08/03/2014 [id number] Mammogram Completed 08/25/2011 905756332 Bone Mineral Density Test [facility] 09/10/2008 [id number] Colonoscopy Completed 2007 670680821 Bone Mineral Density Test [facility] Medical Devices Description No Information Available Encounters Type Date Location Provider Dx Diagnosis Office Visit 09/24/2020 9:00a [facility] Jones M.D. 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 10/23/2020 Z51.81 Encounter for therapeutic drug l evel monitoring Lab Schedule 10/23/2020 I48.21 Permanent atrial fibrillation Rowdy Jones M.D. 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 09/24/2020 I48.20 Chronic atrial fibrillation, uns pecified Amanuel Jones M.D. 09/24/2020 Z79.01 longterm (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 Amanuel Jones [...] 09/12/2020 I48.20 Chronic atrial fibrillation, uns pecified Amanuel Jones M.D. 09/12/2020 I48.20 Chronic atrial fibrillation, uns pecified Lab Schedule 09/12/2020 Z79.01 longterm (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 Amanuel Jones M.D. 09/12/2020 Z79.01 longterm (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 Lab Schedule 09/12/2020 E11.65 Type 2 diabetes mellitus with hy perglycemia Amanuel Jones M.D. 09/12/2020 E11.65 Type 2 diabetes mellitus with hy perglycemia Lab Schedule 09/12/2020 E78.00 Pure hypercholesterolemia, unspe cified Amanuel Jones M.D. 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 Protime 08/19/2020 Z51.81 Encounter for therapeutic drug l evel monitoring Lila Marlene [place], [facility] 08/19/2020 Z51.81 Encounter for therapeutic drug l evel monitoring Protime 08/19/2020 I48.20 Chronic atrial fibrillation, uns pecified Lila Mendez, [facility] 08/19/2020 I48.20 Chronic atrial fibrillation, uns pecified Protime 08/19/2020 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 rat exterminator (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 Lila Mendez, [facility] 08/19/2020 Z79.01 rat exterminator (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 Protime 07/18/2020 Z51.81 Encounter for therapeutic drug l evel monitoring Lila [place], CREDIT CLERK 07/18/2020 Z51.81 Encounter for therapeutic drug l evel monitoring Protime 07/18/2020 I48.20 Chronic atrial fibrillation, uns pecified Lila Mendez, CREDIT CLERK 07/18/2020 I48.20 Chronic atrial fibrillation, uns pecified Protime 07/18/2020 Z79.01 rat exterminator (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 Lila Rosario Mila, CREDIT CLERK 07/18/2020 Z79.01 rat exterminator (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 Protime 06/27/2020 E11.65 Type 2 diabetes mellitus with hy perglycemia Amanuel Jones M.D. 06/27/2020 Z13.89 Encounter for screening for othe r disorder Amanuel Jones M.D. 06/27/2020 E78.00 Pure hypercholesterolemia, unspe cibrittany Jones M.D. 06/27/2020 I48.20 Chronic atrial fibrillation, uns victoria Jones M.D. 06/27/2020 Z79.01 longterm (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 Amanuel Jones [...] Chronic atrial fibrillation, uns pecified Lila Mendez, CREDIT CLERK 06/18/2020 I48.20 Chronic atrial fibrillation, uns pecified Protime 06/18/2020 Z51.81 Encounter for therapeutic drug l evel monitoring Lila Mendez, CREDIT CLERK 06/18/2020 Z51.81 Encounter for therapeutic drug l evel monitoring Protime 06/18/2020 Z79.01 longterm (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 Lila Mendez, CREDIT CLERK 06/18/2020 Z79.01 longterm (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 Protime 06/18/2020 Z23 Encounter for immunization Amanuel Jones M.D. 06/18/2020 Z23 Encounter for immunization Proti me 05/26/2020 L03.116 Cellulitis of left lower limb Ro kane Tobin JR, PA Plan of Treatment Future Appointment(s):* 11/24/2020 11:15 am - [facility] at [facility] * 02/13/2021 11:30 am - Amanuel Jones M.D. at [facility] 06/27/2020 - Amanuel Jones M.D.* E11.65 Type 2 diabetes mellitus with hyperglycemia * Z13.89 Encounter for screening for other disorder * E78.00 Pure hypercholesterolemia, unspecified * I48.20 Chronic atrial fibrillation, unspecified * Z79.01 longterm (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 of anticoagulants * M48.07 Spinal [...] MAMMOGRAM Created [facility] [place] [id number] [phone] [facility] DIRECTOR SCRIPT CONSULT FOR CELLULITIS LT FOOT Sent 06/12/2020 [address] [place] [address] [phone]
--- OUTSIDE RECORDS SUMMARY | 2020-11-24 10:41 | CCD | Continuity of Care Document ---
Author Author Lab Schedule, Ania Marquez Organization Unknown Address [address] [address] Phone Unavailable Care Team Providers Care Pharmacy Tech Name Role Phone Amanuel Jones MD AUTM [phone] Alber Agustin MD AUTM [phone] Hector Roblero III, MD AUTM Unavailable [facility] AUTM Problems Active Problems Provider Date Type 2 diabetes mellitus ALLSION [place] Onset: 01/22/20 15 Atrial fibrillation Amanuel [...] 1 by mouth three times a day 270tayamilet Gonzalez DO 08/22/2015 Hydrochlorothiazide 25mg Tablets 1 by mouth every day 90sarah Jones M.D. 08/21/2015 Jantoven 4mg Tablets 1 daily or as directed 90tayamilet Jones M.D. Atenolol 50mg Tablets 1 by mouth every morning and 1/2 tablet each evening 135sarah chiu M.D. Glipizide ER 5mg Tablets ER [...] M.D. 09/07/2016 Administration Of Flu Vaccine Inj ection Amanuel Jones M.D. 08/05/2015 Immunizations CPT Code Status Date Vaccine Lot # [id number] Given 06/18/2020 Influenza Vaccin e Quadrivalent Preser/Antibiotic Free Im Use [id number] Given 09/10/2019 Pneumovax 23 [id number] [id number] Given 09/10/2019 Adacel- Tetanus Diphtheria P ertussis (Age64 & Under) [id number] Given 07/31/2019 Influenza Vaccin e Quadrivalent Preser/Antibiotic Free Im Use [id number] 29382 Given 06/30/2018 Influenza Virus Vaccine, Quadrivalent ([id number]), Derived From 6 Given 07/26/2017 Influenza Vaccin e Quadrivalent Preser/Antibiotic Free Im Use [id number] Given 09/07/2016 Fluvirin Virus Vaccine [id number] 01 [id number] Given 08/05/2015 Fluvirin Virus Vaccine 91669 01 30495 Given 08/06/2014 Influenza Virus Vaccine 51147 Given 07/25/2013 Influenza Virus Vaccine 27964 Given 07/20/2012 Influenza Virus Vaccine 46702 Given 07/13/2011 Influenza Virus Vaccine 91877 Given 07/13/2011 Influenza Virus Vaccine 26278 Given 10/05/2010 Pneumovax 23 62651 Given 07/03/2010 Influenza Virus Vaccine 88943 Given 12/03/2002 Adacel- Tetanus Diphtheria P ertussis (Age64 & Under) Vital Signs Date Vital Result Comment 10/07/2020 10:56am Weight 216.00 lb 09/24/2020 8:53am BP Systolic 110 mmHg BP Diastolic 54 mmHg Heart Rate 86 /min Height 66 inches 5'6" Weight 214.00 lb O2 % BldC Oximetry 93 % BMI (Body Mass Index) 34.5 kg/m2 Results Test Acquired Date Facility Test Result H/L Range Note Prothrombin Time/Inr 10/23/2020 [facility] enter [address] [place] [address] [phone] Prothrombin Time 21.9 seconds High 12.5-14.3 Inr 1.87 Normal 1 Laboratory test finding 10/07/2020 [facility] 2.4 Complete Blood Count 09/12/2020 [facility] Teasel Setter: [place] [address] [phone] WBC 9.1 x10*3/UL 4.1 - 10.9 RBC [...] 7.7 x10*3/UL 2.0 - 7.8 A1c 09/12/2020 [facility] , Teasel Setter: [place] [address] [phone] Hba1c 7.4 % High <5.7 2 Est Avg Glucose 166 mg/dL High 60 - 110 Comprehensive Chem Profile 09/12/2020 [facility], Teasel Setter: [place] [address] [phone] Glucose 241 mg/dL High 74 - 99 [...] mL/min >60 4 Laboratory test finding 09/12/2020 [facility] Teasel Setter: [place] [address] [phone] Thyroid Stimulating Hormone 1.88 uIU/mL 0.3 6 - 3.74 Laboratory test finding 09/03/2020 [facility] 1.7 Laboratory test finding 08/19/2020 [facility] In[facility] 1.4 Laboratory test finding 07/18/2020 [facility] Inr 1.7 Microalbumin/Creatinine Urine 06/27/2020 [facility]: Dr Felipe [place] [id number] [phone] Microalbumin Urine 19.2 mg/L 1.3 - 20.0 Urine Creatinine 44.5 mg/dL 30.0 - 125.0 Microalb/Creat Ratio 43.1 ug/mg High 0.0 - 30.0 A1c 06/26/2020 [facility]: [place] [address] [phone] Hba1c 7.9 % High <5.7 5 Est Avg Glucose 180 mg/dL High 60 - 110 Comprehensive Chem Profile 06/26/2020 [facility]el [facility]: Dr [place] [address] [phone] Glucose 136 mg/dL High 74 - 99 [...] 60 mL/min >60 7 Lipid Profile 06/26/2020 [facility] Te[facility]el [facility]: Dr [place] [address] [phone] Cholesterol 177 mg/dL 131 - 200 Triglycerides 99 mg/dL 30 - 150 HDL Cholesterol 51 mg/dL 35 - 60 LDL (Calculated) 106 CALC 50 - 159 Laboratory test finding 06/18/2020 [facility] In[facility] 1.7 Laboratory test finding 05/09/2020 [facility] Inr 1.6 1 THERAPUTIC HUMAN INR VALUES INDICATIONS NORMAL [...] LITTLE GFR LEFT ESRD GFR <15 ON HOME HEALTH SCHEDULER 5 Lab Result Notes: Pre-Diabetes 5.7 - [...] LITTLE GFR LEFT ESRD GFR <15 ON HOME HEALTH SCHEDULER Procedures Date Code Description Status 05/22/2020 [id number] Diabetic Retinal Eye Exam [facility] 03/27/2020 [id number] Diabetic Retinal Eye Exam [facility] 10/12/2019 [id number] Mammogram Completed 10/09/2019 [id number] Diabetic Retinal Eye Exam [facility]ple [facility] 06/20/2019 [id number] Colonoscopy Completed 12/14/2018 [id number] Diabetic Retinal Eye Exam [facility]ple [facility] 11/13/2018 [id number] Diabetic Retinal Eye Exam [facility]ple [facility] 09/29/2018 [id number] Mammogram Completed 04/07/2018 [id number] Diabetic Retinal Eye Exam [facility] 12/20/2017 [id number] Diabetic Retinal Eye Exam [facility]ple [facility] 12/14/2017 [id number] Diabetic Retinal Eye Exam [facility] 09/27/2017 [id number] Mammogram Completed 06/09/2017 [id number] Diabetic Retinal Eye Exam [facility] 04/07/2017 [id number] Diabetic Retinal Eye Exam [facility] 11/25/2016 [id number] Diabetic Retinal Eye Exam [facility] 09/23/2016 [id number] Mammogram Completed 02/01/2016 [id number] Diabetic Foot Exam Completed 01/21/2016 [id number] Diabetic Foot Exam Completed 01/20/2016 [id number] Diabetic Foot Exam Completed 10/14/2015 [id number] Diabetic Retinal Eye Exam [facility] 09/04/2015 [id number] Mammogram Completed 02/26/2015 [id number] Diabetic Retinal Eye Exam [facility] 08/03/2014 [id number] Mammogram Completed 08/25/2011 [id number] Bone Mineral Density Test [facility] 09/10/2008 [id number] Colonoscopy Completed 2007 [id number] Bone Mineral Density Test [facility] Medical Devices Description No Information Available Encounters Type Date Location Provider Dx Diagnosis Office Visit 09/24/2020 9:00a [facility] Amanuel Jones M.D. 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 Yoav Tobin JR, PA L03.116 Cellulitis of left lower [place] b Assessments Date Code Description Provider 10/23/2020 Z51.81 Encounter for therapeutic drug l evel monitoring Amanuel Jones M.D. 10/23/2020 Z51.81 Encounter for therapeutic drug l evel monitoring Lab Schedule 10/23/2020 I48.21 Permanent atrial fibrillation Rowdy Jones M.D. 10/23/2020 I48.21 Permanent atrial fibrillation [place] b Schedule 10/07/2020 Z51.81 Encounter for therapeutic drug l evel monitoring ALLISON Lyons 10/07/2020 Z51.81 Encounter for therapeutic drug l evel monitoring [facility] 10/07/2020 I48.20 Chronic atrial fibrillation, uns pecified Lila Mendez, [employer] 10/07/2020 I48.20 Chronic atrial fibrillation, uns pecified [facility] 10/07/2020 Z79.01 [facility] (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 Lila Mendez, [employer] SAL[employer] DIRECTOR 10/07/2020 Z79.01 [facility] (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 [facility] 09/24/2020 E78.00 Pure hypercholesterolemia, unspe cibrittany Jones M.D. 09/24/2020 I48.20 Chronic atrial fibrillation, uns pecgladis Jones M.D. 09/24/2020 Z79.01 [facility] (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 [...] fibrillation, uns pecified Lab Schedule 09/12/2020 Z79.01 [facility] (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 of antic oagulannaldo Jones M.D. 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 09/12/2020 E11.65 Type 2 diabetes mellitus with hy perglycemia Lab Schedule 09/12/2020 E78.00 Pure hypercholesterolemia, unspe cibrittany Jones M.D. 09/12/2020 E78.00 Pure hypercholesterolemia, unspe cified Lab Schedule 09/03/2020 Z51.81 Encounter for therapeutic drug l evel monitoring Lila Marlene Doña [place], [employer] SAL[employer] DIRECTOR 09/03/2020 Z51.81 Encounter for therapeutic drug l evel monitoring [facility] 09/03/2020 I48.20 Chronic atrial fibrillation, uns pecified Lila Marlene Do[place], 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 08/19/2020 Z51.81 Encounter for therapeutic drug l evel monitoring [facility] 08/19/2020 I48.20 Chronic atrial fibrillation, uns pecified Lila Mendez, [facility] 08/19/2020 I48.20 Chronic atrial fibrillation, uns pecified [facility] 08/19/2020 Z79.01 [facility] (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 Lila Mendez, [facility] 08/19/2020 Z79.01 [facility] (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 [facility] 07/18/2020 Z51.81 Encounter for therapeutic drug l evel monitoring Lila Mendez, [facility] 07/18/2020 Z51.81 Encounter for therapeutic drug l evel monitoring Pro[facility] 07/18/2020 I48.20 Chronic atrial fibrillation, uns pecified Lila Mendez, 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 07/18/2020 Z79.01 [facility] (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 [facility] 06/27/2020 E11.65 Type 2 diabetes mellitus with hy perglycemia Amanuel Jones M.D. 06/27/2020 Z13.89 Encounter for screening for othe r disorder Amanuel Jones M.D. 06/27/2020 E78.00 Pure hypercholesterolemia, unspe cified Amanuel Jones M.D. 06/27/2020 I48.20 Chronic atrial fibrillation, uns pecified Amanuel Jones M.D. 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 06/27/2020 M48.07 Spinal stenosis, lumbosacral reg ion Amanuel Jones M.D. 06/27/2020 E11.42 Type 2 diabetes mellitus with di abetic polyneuropathy Amanuel Jones M.D. 06/27/2020 E11.319 Type 2 diabetes mellitus with un specified diabetic retinopat Amanuel Jones M.D. 06/27/2020 M81.0 Age-related osteoporosis without current pathological fracture Amanuel Jones M.D. 06/27/2020 I73.9 Peripheral vascular disease, uns pecified Amanuel Jones M.D. 06/26/2020 E11.65 Type 2 [...] Chronic atrial fibrillation, uns pecified Lila Mendez [facility] 06/18/2020 I48.20 Chronic atrial fibrillation, uns pecified [facility] 06/18/2020 Z51.81 Encounter for therapeutic drug l evel monitoring Lila Mendez [facility] 06/18/2020 Z51.81 Encounter for therapeutic drug l evel monitoring Protime 06/18/2020 Z79.01 [facility] (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 Lila Mendez [facility] 06/18/2020 Z79.01 [facility] (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 Protime 06/18/2020 Z23 Encounter for immunization Amanuel Jones M.D. 06/18/2020 Z23 Encounter for immunization Proti me 05/26/2020 L03.116 Cellulitis of left lower limb Clara Tobin JR, PA 05/09/2020 I48.20 Chronic atrial fibrillation, uns pecified GOLDY LyonsP 05/09/2020 I48.20 Chronic atrial fibrillation, uns pecified [facility] 05/09/2020 Z51.81 Encounter for therapeutic drug l evel monitoring Lila Menedz [employer] 05/09/2020 Z51.81 Encounter for therapeutic drug l evel monitoring Protime 05/09/2020 Z79.01 [facility] (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 Lila Rosario Mila [employer] SAL[employer] DIRECTOR Plan of Treatment Future Appointment(s):* 11/24/2020 11:15 am - [facility] at [facility] * 02/13/2021 11:30 am - Amanuel Jones M.D. at [facility] 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 Hypercholesterolemia: We did not obtain lipids today. History of intolerance to number of statins. Had done well in the past with diet and low-dose Crestor. We will monitor.2. Chronic atrial fibrillation: Asymptomatic. Rate is controlled, is on Coumadin. We will continue to monitor.3. 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 She is getting monitored appropriately.4. Type 2 diabetes mellitus with hyperglycemia: A1c has decreased further, although not at strict goal. Less eating out has helped. Nutrition (needs to cook some) discussed. Salt an issue we discussed as well. 5. Spinal stenosis, lumbosacral region: She is doing well generally. Encouraged her to be active. We will monitor.6. Type 2 diabetes mellitus with diabetic polyneuropathy: Following with [facility] for wound on her left foot, will continue to follow up appropriately. We will monitor. 7. 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 She will continue to follow with Ophthalmology (Dr. Agustin). We will monitor.Ongoing cares: I am going to see her again in 4-5 months with CMP, lipids, HgbA1c, CBC and EKG. If she has new problems or issues sooner she will let us know. Functional Status Description No Information Available Mental Status Description No Information Available Referrals Refer to Reason for Referral Status Appt Date [facility] [employer] CONSULT FOR CELLULITIS LT FOOT Sent 06/12/2020 [address] [place] [address] [phone]
--- OUTSIDE RECORDS SUMMARY | 2020-11-24 10:42 | CCD | Continuity of Care Document ---
Author Author Lab Schedule, Ania Marquez Organization Unknown Address [address] [address] Phone Unavailable Care Team Providers Care Pipe Testing Technician Name Role Phone Amanuel Jones MD AUTM [phone] Alber Agustin MD AUTM [phone] Hector Roblero III, MD AUTM Unavailable [facility] AUTM Problems Active Problems [...] M.D. 06/18/2020 Immunization Adminstration,1 Vaccine/Tox oid Injection Amaunel Jones M.D. 019 Administration Of Flu Vaccine Inj monicaion Amanuel Jones M.D. 07/31/2019 Administration Of Flu Vaccine Inj monicaion Amanuel Jones M.D. 06/30/2018 Administration Of Flu Vaccine Inj monicaion Amanuel Jones M.D. 07/26/2017 Administration Of Flu Vaccine Inj monicaion Amanuel Jones M.D. 09/07/2016 Administration Of Flu Vaccine Inj ection Amanuel Jones M.D. 08/05/2015 Immunizations CPT Code Status Date Vaccine Lot # [id number] Given 06/18/2020 Influenza Vaccin e Quadrivalent Preser/Antibiotic Free Im Use [id number] Given 09/10/2019 Pneumovax 23 [id number] 45638 Given 09/10/2019 Adacel- Tetanus Diphtheria P ertussis (Age64 & Under) [id number] 98039 Given 07/31/2019 Influenza Vaccin e Quadrivalent Preser/Antibiotic Free Im Use [id number] 85083 Given 06/30/2018 Influenza Virus Vaccine, Quadrivalent ([id number]), Derived From 2 Given 07/26/2017 Influenza Vaccin e Quadrivalent Preser/Antibiotic Free Im Use [id number] Given 09/07/2016 Fluvirin Virus Vaccine 30116 01 Q2037 Given 08/05/2015 Fluvirin Virus Vaccine 10437 01 03622 Given 08/06/2014 Influenza Virus Vaccine 03599 Given 07/25/2013 Influenza Virus Vaccine 09142 Given 07/20/2012 Influenza Virus Vaccine 18792 Given 07/13/2011 Influenza Virus Vaccine 20484 Given 07/13/2011 Influenza Virus Vaccine 94402 Given 10/05/2010 Pneumovax 23 60763 Given 07/03/2010 Influenza Virus Vaccine 48812 Given 12/03/2002 Adacel- Tetanus Diphtheria P ertussis [...] Result H/L Range Note Laboratory test finding 10/07/2020 [facility] 2.4 Complete Blood Count 09/12/2020 [facility] Technical Support Professional: Dr Felipe Spain [place] [id number] [phone] WBC 9.1 x10*3/UL 4.1 - 10.9 RBC [...] 7.7 x10*3/UL 2.0 - 7.8 A1c 09/12/2020 [facility] , Technical Support Professional: [place] [address] [phone] Hba1c 7.4 % High <5.7 1 Est Avg Glucose 166 mg/dL High 60 - 110 Comprehensive Chem Profile 09/12/2020 [facility], Technical Support Professional: [place] [address] [phone] Glucose 241 mg/dL High 74 - 99 2 BUN 24 mg/dL High 7 - 18 [...] mL/min >60 GFR >= 60 mL/min >60 3 Laboratory test finding 09/12/2020 [facility], Technical Support Professional: [place] [address] [phone] Thyroid Stimulating Hormone 1.88 uIU/mL 0.3 6 - 3.74 Laboratory test finding 09/03/2020 [facility] 1.7 Laboratory test finding 08/19/2020 [facility] 1.4 Laboratory test finding 07/18/2020 [facility] 1.7 Microalbumin/Creatinine Urine 06/27/2020 [facility], Technical Support Professional: [place] [address] [phone] Microalbumin Urine 19.2 mg/L 1.3 - 20.0 Urine Creatinine 44.5 mg/dL 30.0 - 125.0 Microalb/Creat Ratio 43.1 ug/mg High 0.0 - 30.0 A1c 06/26/2020 [facility] , Technical Support Professional: [place] [address] [phone] Hba1c 7.9 % High <5.7 4 Est Avg Glucose 180 mg/dL High 60 - 110 Comprehensive Chem Profile 06/26/2020 [facility], Technical Support Professional: [place] [address] [phone] Glucose 136 mg/dL High 74 - 99 5 BUN 19 mg/dL High 7 - 18 [...] mL/min >60 GFR >= 60 mL/min >60 6 Lipid Profile 06/26/2020 [facility] , Technical Support Professional: [place] [address] [phone] Cholesterol 177 mg/dL 131 - 200 Triglycerides 99 mg/dL 30 - 150 HDL Cholesterol 51 mg/dL 35 - 60 LDL (Calculated) 106 CALC 50 - 159 Laboratory test finding 06/18/2020 [facility] 1.7 Laboratory test finding 05/09/2020 [facility] 1.6 1 Lab Result Notes: Pre-Diabetes 5.7 - 6.4 % Diabetes = or > 6.5% 2 100-125 mg/dL PRE-DIABET ES/FASTING >126 mg/dL DIABETES/FASTING 3 CHRONIC KIDNEY DISEASE STAGI NG PER NKF STAGE I & II GFR >= 60 NORMAL TO MILDLY DECREASED STAGE III GFR 30-59 MODERATELY DECREASED STAGE IV GFR 15-29 SEVERELY DECREASED STAGE V GFR <15 VERY LITTLE GFR LEFT ESRD GFR <15 ON PROCUREMENT TECHNICIAN 4 Lab Result Notes: Pre-Diabetes 5.7 - 6.4 % Diabetes = or > 6.5% 5 100-125 mg/dL PRE-DIABET ES/FASTING >126 mg/dL DIABETES/FASTING 6 CHRONIC KIDNEY DISEASE STAGI NG PER NKF STAGE I & II GFR >= 60 NORMAL TO MILDLY DECREASED STAGE III GFR 30-59 MODERATELY DECREASED STAGE IV GFR 15-29 SEVERELY DECREASED STAGE V GFR <15 VERY LITTLE GFR LEFT ESRD GFR <15 ON PROCUREMENT TECHNICIAN Procedures Date Code Description Status 05/22/2020 [id number] Diabetic Retinal Eye Exam [facility] 03/27/2020 [id number] Diabetic Retinal Eye Exam [facility] 10/12/2019 [id number] Mammogram Completed 10/09/2019 [id number] Diabetic Retinal Eye Exam [facility] 06/20/2019 [id number] Colonoscopy Completed 12/14/2018 [id number] Diabetic Retinal Eye Exam [facility] 11/13/2018 [id number] Diabetic Retinal Eye Exam [facility] 09/29/2018 [id number] Mammogram Completed 04/07/2018 [id number] Diabetic Retinal Eye Exam [facility] 12/20/2017 [id number] Diabetic Retinal Eye Exam [facility] 12/14/2017 [id number] Diabetic Retinal Eye Exam [facility] 09/27/2017 [id number] Mammogram Completed 06/09/2017 [id number] Diabetic Retinal Eye Exam [facility] 04/07/2017 [id number] Diabetic Retinal Eye Exam [facility] 11/25/2016 [id number] Diabetic Retinal Eye Exam [facility] 09/23/2016 [id number] Mammogram Completed 02/01/2016 [id number] Diabetic Foot Exam Completed 01/21/2016 [id number] Diabetic Foot Exam Completed 01/20/2016 [id number] Diabetic Foot Exam Completed 10/14/2015 [id number] Diabetic Retinal Eye Exam [facility] 09/04/2015 [id number] Mammogram Completed 02/26/2015 [id number] Diabetic Retinal Eye Exam [facility] 08/03/2014 [id number] Mammogram Completed 08/25/2011 [id number] Bone Mineral Density Test [facility] 09/10/2008 [id number] Colonoscopy Completed 2007 [id number] Bone Mineral Density Test [facility] Medical Devices Description No Information Available Encounters Type Date Location Provider Dx Diagnosis Office Visit 09/24/2020 9:00a [facility] M.[facility] 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 Office Visit 05/26/2020 10:20a [facility] PSher Tobin JR, [place] L03.116 Cellulitis of left lower [place] b Assessments Date Code Description Provider 10/07/2020 Z51.81 Encounter for therapeutic drug l evel monitoring Lila Mendez [facility] 10/07/2020 Z51.81 Encounter for therapeutic drug l evel monitoring Protime 10/07/2020 I48.20 Chronic atrial fibrillation, uns pecified Lila Mendez [facility] 10/07/2020 I48.20 Chronic atrial fibrillation, uns pecified Protime 10/07/2020 Z79.01 supervisor intermediates (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 Lila Mendez [facility] 10/07/2020 Z79.01 supervisor intermediates (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 Protime 09/24/2020 E78.00 Pure hypercholesterolemia, unspe cified Amanuel Jones M.D. 09/24/2020 I48.20 Chronic atrial fibrillation, uns pecified Amanuel Jones M.D. 09/24/2020 Z79.01 supervisor intermediates (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 Amanuel Jones [...] fibrillation, uns pecified Lab Schedule 09/12/2020 Z79.01 supervisor intermediates (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 Amanuel Jones M.D. 09/12/2020 Z79.01 supervisor intermediates (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 Lab Schedule 09/12/2020 E11.65 Type 2 diabetes mellitus with hy perglycemia Amanuel Jones M.D. 09/12/2020 E11.65 Type 2 diabetes mellitus with hy perglycemia Lab Schedule 09/12/2020 E78.00 Pure hypercholesterolemia, unspe cified Amanuel Jones M.D. 09/12/2020 E78.00 Pure hypercholesterolemia, unspe cified Lab Schedule 09/03/2020 Z51.81 Encounter for therapeutic drug l evel monitoring Lila Mendez, [facility] 09/03/2020 Z51.81 Encounter for therapeutic drug l evel monitoring Protime 09/03/2020 I48.20 Chronic atrial fibrillation, uns pecified Lila Mendez, [facility] 09/03/2020 I48.20 Chronic atrial fibrillation, uns pecified Protime 09/03/2020 Z79.01 care home (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 Lila Mendez, [facility] 09/03/2020 Z79.01 supervisor intermediates (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 Protime 08/19/2020 Z51.81 Encounter for therapeutic drug l evel monitoring Lila Mendez, [facility] 08/19/2020 Z51.81 Encounter for therapeutic drug l evel monitoring Protime 08/19/2020 I48.20 Chronic atrial fibrillation, uns pecified Lila Mendez, [facility] 08/19/2020 I48.20 Chronic atrial fibrillation, uns pecified Protime 08/19/2020 Z79.01 supervisor intermediates (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 Lila Mendez, [facility] 08/19/2020 Z79.01 supervisor intermediates (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 Protime 07/18/2020 Z51.81 Encounter for therapeutic drug l evel monitoring Lila Rosario Mila, [employer] 07/18/2020 Z51.81 Encounter for therapeutic drug l evel monitoring Protime 07/18/2020 I48.20 Chronic atrial fibrillation, uns pecified Lila Mendez, [employer] 07/18/2020 I48.20 Chronic atrial fibrillation, uns pecified Protime 07/18/2020 Z79.01 care home (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 Lila Marlene Zaragoza, [facility] 07/18/2020 Z79.01 care home (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 Protime 06/27/2020 E11.65 Type 2 diabetes mellitus with hy perglycemia Amnauel Jones M.D. 06/27/2020 Z13.89 Encounter for screening for othe r disorder Amanuel Jones M.D. 06/27/2020 E78.00 Pure hypercholesterolemia, unspe cified Amanuel Jones M.D. 06/27/2020 I48.20 Chronic atrial fibrillation, uns pecgladis Jones M.D. 06/27/2020 Z79.01 care home (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 Amanuel Jones [...] Chronic atrial fibrillation, uns pecified Lila Mendez, [employer] 06/18/2020 I48.20 Chronic atrial fibrillation, uns pecified Protime 06/18/2020 Z51.81 Encounter for therapeutic drug l evel monitoring Lila Mendez, [employer] 06/18/2020 Z51.81 Encounter for therapeutic drug l evel monitoring Protime 06/18/2020 Z79.01 care home (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 Lila Mendez [employer] 06/18/2020 Z79.01 care home (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 Protime 06/18/2020 Z23 Encounter for immunization Amanuel Jones M.D. 06/18/2020 Z23 Encounter for immunization Proti me 05/26/2020 L03.116 Cellulitis of left lower limb Ro kane Tobin JR, PA 05/09/2020 I48.20 Chronic atrial fibrillation, uns pecified Lila Mendez, [facility] 05/09/2020 I48.20 Chronic atrial fibrillation, uns pecified Protime 05/09/2020 Z51.81 Encounter for therapeutic drug l evel monitoring Lila Mendez, [facility] 05/09/2020 Z51.81 Encounter for therapeutic drug l evel monitoring Protime 05/09/2020 Z79.01 care home (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 ALLISON Lyons Plan of Treatment Future Appointment(s):* 02/13/2021 11:30 am - Amanuel Jones M.D. at [facility] 09/24/2020 - Amanuel Jones M.D.* E78.00 Pure hypercholesterolemia, unspecified * I48.20 Chronic atrial fibrillation, unspecified * Z79.01 care home (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 of anticoagulants * E11.65 Type [...] on Coumadin. We will continue to monitor.3. supervisor intermediates (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 of anticoagulants: Coumadin level is [...] diabetes mellitus with diabetic polyneuropathy: Following with [facility] for wound on [...] to Reason for Referral Status Appt Date [facility] CONSULT FOR CELLULITIS LT FOOT Sent 06/12/2020 [place] [address] [phone]
--- OUTSIDE RECORDS SUMMARY | 2020-11-24 10:42 | CCD | Continuity of Care Document ---
Author Author Ania Lyons Organization Unknown Address [address] [place] [address] [address] [place] [address] Phone [phone] Care Team Providers Care Genetic Supervisor Name Role Phone Amanuel Jones MD AUTM [phone] Alber Agustin MD AUTM [phone] Hector Roblero III, MD AUTM Unavailable [facility] AUTM Problems Active Problems [...] 25mg Tablets 1 by mouth every day 90tabs Amanuel Jones M.D. 08/21/2015 Jantoven 4mg Tablets 1 [...] CPT Code Status Date Vaccine Lot # [id number] Given 06/18/2020 Influenza Vaccin e Quadrivalent Preser/Antibiotic Free Im Use [id number] 06183 Given 09/10/2019 Pneumovax 23 [id number] 89509 Given 09/10/2019 Adacel- Tetanus Diphtheria P ertussis (Age64 & Under) [id number] 21643 Given 07/31/2019 Influenza Vaccin e Quadrivalent Preser/Antibiotic Free Im Use [id number] 60149 Given 06/30/2018 Influenza Virus Vaccine, Quadrivalent (Cciiv4), Derived From 2 Given 07/26/2017 Influenza Vaccin e Quadrivalent Preser/Antibiotic Free Im Use 519139 Q2037 Given 09/07/2016 Fluvirin Virus Vaccine 01195 01 Q2037 Given 08/05/2015 Fluvirin Virus Vaccine 91740 01 04494 Given 08/06/2014 Influenza Virus Vaccine 55370 Given 07/25/2013 Influenza Virus Vaccine 45466 Given 07/20/2012 Influenza Virus Vaccine 18319 Given 07/13/2011 Influenza Virus Vaccine 13156 Given 07/13/2011 Influenza Virus Vaccine 92583 Given 10/05/2010 Pneumovax 23 84036 Given 07/03/2010 Influenza Virus Vaccine 72960 Given 12/03/2002 Adacel- Tetanus Diphtheria P ertussis [...] Wi-Inr Inr 2.4 Complete Blood Count 09/12/2020 [facility] [employer] Management Professor: [place] [address] [phone] WBC 9.1 x10*3/UL 4.1 - 10.9 RBC [...] 7.7 x10*3/UL 2.0 - 7.8 A1c 09/12/2020 [facility] , [employer] Management Professor: [place] [address] [phone] Hba1c 7.4 % High <5.7 1 Est Avg Glucose 166 mg/dL High 60 - 110 Comprehensive Chem Profile 09/12/2020 [facility] [employer] Management Professor: [place] [address] [phone] Glucose 241 mg/dL High 74 - 99 [...] mL/min >60 3 Laboratory test finding 09/12/2020 [facility] [employer] Management Professor: [place] [address] [phone] Thyroid Stimulating Hormone 1.88 uIU/mL 0.3 6 - 3.74 Laboratory test finding 09/03/2020 Wi-Inr Inr 1.7 Laboratory test finding 08/19/2020 Wi-Inr Inr 1.4 Laboratory test finding 07/18/2020 Wi-Inr Inr 1.7 Microalbumin/Creatinine Urine 06/27/2020 [facility], [employer] Management Professor: Dr Felipe Spain [place], [place] [id number] [phone] Microalbumin Urine 19.2 mg/L 1.3 - 20.0 Urine Creatinine 44.5 mg/dL 30.0 - 125.0 Microalb/Creat Ratio 43.1 ug/mg High 0.0 - 30.0 A1c 06/26/2020 [facility] , [employer] Management Professor: [place] [address] [phone] Hba1c 7.9 % High <5.7 4 Est Avg Glucose 180 mg/dL High 60 - 110 Comprehensive Chem Profile 06/26/2020 [facility], [employer] Management Professor: [place] [address] [phone] Glucose 136 mg/dL High 74 - 99 [...] 60 mL/min >60 6 Lipid Profile 06/26/2020 [facility] , [employer] Management Professor: [place] [address] [phone] Cholesterol 177 mg/dL 131 - 200 Triglycerides 99 mg/dL 30 - 150 HDL Cholesterol 51 mg/dL 35 - 60 LDL (Calculated) 106 CALC 50 - 159 Laboratory test finding 06/18/2020 Wi-Inr Inr 1.7 Laboratory test finding 05/09/2020 Wi-Inr Inr 1.6 Laboratory test finding 04/08/2020 Wi-Inr Inr 2.0 1 Lab Result Notes: Pre-Diabetes 5.7 - [...] LITTLE GFR LEFT ESRD GFR <15 ON HELPDESK SPECIALIST 4 Lab Result Notes: Pre-Diabetes 5.7 - [...] LITTLE GFR LEFT ESRD GFR <15 ON HELPDESK SPECIALIST Procedures Date Code Description Status 05/22/2020 [id number] Diabetic Retinal Eye Exam [facility] 03/27/2020 [id number] Diabetic Retinal Eye Exam [facility] 10/12/2019 [id number] Mammogram Completed 10/09/2019 [id number] Diabetic Retinal Eye Exam [facility] 06/20/2019 [id number] Colonoscopy Completed 12/14/2018 [id number] Diabetic Retinal Eye Exam [facility] 11/13/2018 [id number] Diabetic Retinal Eye Exam [facility] 09/29/2018 [id number] Mammogram Completed 04/07/2018 [id number] Diabetic Retinal Eye Exam [facility] 12/20/2017 [id number] Diabetic Retinal Eye Exam [facility] 12/14/2017 [id number] Diabetic Retinal Eye Exam [facility] 09/27/2017 [id number] Mammogram Completed 06/09/2017 [id number] Diabetic Retinal Eye Exam [facility] 04/07/2017 [id number] Diabetic Retinal Eye Exam [facility] 11/25/2016 [id number] Diabetic Retinal Eye Exam [facility] 09/23/2016 [id number] Mammogram Completed 02/01/2016 [id number] Diabetic Foot Exam Completed 01/21/2016 [id number] Diabetic Foot Exam Completed 01/20/2016 [id number] Diabetic Foot Exam Completed 10/14/2015 [id number] Diabetic Retinal Eye Exam [facility] 09/04/2015 [id number] Mammogram Completed 02/26/2015 [id number] Diabetic Retinal Eye Exam [facility] 08/03/2014 [id number] Mammogram Completed 08/25/2011 [id number] Bone Mineral Density Test [facility] 09/10/2008 [id number] Colonoscopy Completed 2007 [id number] Bone Mineral Density Test [facility] Medical Devices Description No Information Available Encounters Type Date Location Provider Dx Diagnosis Office Visit 09/24/2020 9:00a [facility] Amanuel Jones M.D. 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 09/24/2020 I48.20 Chronic atrial fibrillation, uns pecified Amanuel Jones M.D. 09/24/2020 Z79.01 buttermaker continuous churn (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 Amanuel Jones [...] fibrillation, uns pecified Lab Schedule 09/12/2020 Z79.01 buttermaker continuous churn (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 Amanuel Jones M.D. 09/12/2020 Z79.01 buttermaker continuous churn (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 Lab Schedule 09/12/2020 E11.65 Type 2 diabetes mellitus with hy perglycemia Amanuel Jones M.D. 09/12/2020 E11.65 Type 2 diabetes mellitus with hy perglycemia Lab Schedule 09/12/2020 E78.00 Pure hypercholesterolemia, unspe cified Amanuel Jones M.D. 09/12/2020 E78.00 Pure hypercholesterolemia, unspe cified Lab Schedule 09/03/2020 Z51.81 Encounter for therapeutic drug l evel monitoring Lila Le Pickett, [facility] 09/03/2020 Z51.81 Encounter for therapeutic drug l evel monitoring Protime 09/03/2020 I48.20 Chronic atrial fibrillation, uns pecified Lila Le Pickett, [facility] 09/03/2020 I48.20 Chronic atrial fibrillation, uns pecified Protime 09/03/2020 Z79.01 USP (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 Lila Le Pickett, [facility] 09/03/2020 Z79.01 USP (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 Protime 08/19/2020 Z51.81 Encounter for therapeutic drug l evel monitoring Lila Le Pickett, [facility] 08/19/2020 Z51.81 Encounter for therapeutic drug l evel monitoring Protime 08/19/2020 I48.20 Chronic atrial fibrillation, uns pecified Lila Le Pickett, [facility] 08/19/2020 I48.20 Chronic atrial fibrillation, uns pecified Protime 08/19/2020 Z79.01 USP (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 Lila Le Pickett, [facility] 08/19/2020 Z79.01 buttermaker continuous churn (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 Protime 07/18/2020 Z51.81 Encounter for therapeutic drug l evel monitoring Lila Le Pickett, [facility] 07/18/2020 Z51.81 Encounter for therapeutic drug l evel monitoring Protime 07/18/2020 I48.20 Chronic atrial fibrillation, uns pecified Lila Le Pickett, [facility] 07/18/2020 I48.20 Chronic atrial fibrillation, uns pecified Protime 07/18/2020 Z79.01 buttermaker continuous churn (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 Lila Mendez, [employer] 07/18/2020 Z79.01 USP (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 Protime 06/27/2020 E11.65 Type 2 diabetes mellitus with hy perglycemia Amanuel Jones M.D. 06/27/2020 Z13.89 Encounter for screening for othe r disorder Amanuel Jones M.D. 06/27/2020 E78.00 Pure hypercholesterolemia, unspe cified Amanuel Jones M.D. 06/27/2020 I48.20 Chronic atrial fibrillation, uns victoria Jones M.D. 06/27/2020 Z79.01 USP (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 Amanuel Jones [...] Schedule 06/18/2020 I48.20 Chronic atrial fibrillation, uns pecGOLDY GrijalvaP 06/18/2020 I48.20 Chronic atrial fibrillation, uns pecified Protime 06/18/2020 Z51.81 Encounter for therapeutic drug l evel monitoring Lila Marlene Zaragoza, [employer] 06/18/2020 Z51.81 Encounter for therapeutic drug l evel monitoring Protime 06/18/2020 Z79.01 USP (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 Lila Mendez, [employer] 06/18/2020 Z79.01 USP (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 Protime 06/18/2020 Z23 Encounter for immunization Amanuel Jones M.D. 06/18/2020 Z23 Encounter for immunization Proti me 05/26/2020 L03.116 Cellulitis of left lower limb Ro kane Tobin JR, PA 05/09/2020 I48.20 Chronic atrial fibrillation, uns pecified Lila Mendez, [employer] 05/09/2020 I48.20 Chronic atrial fibrillation, uns pecified Protime 05/09/2020 Z51.81 Encounter for therapeutic drug l evel monitoring Lila Mendez, [employer] 05/09/2020 Z51.81 Encounter for therapeutic drug l evel monitoring Protime 05/09/2020 Z79.01 USP (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 Lila Mendez, [employer] 04/08/2020 I48.20 Chronic atrial fibrillation, uns pecified Lila Marlene Zaragoza, [employer] 04/08/2020 I48.20 Chronic atrial fibrillation, uns pecified Protime 04/08/2020 Z79.01 buttermaker continuous churn (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 Lila Mendez, [employer] 04/08/2020 Z79.01 buttermaker continuous churn (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 Protime 04/08/2020 Z51.81 Encounter for therapeutic drug l evel monitoring ALLISON Lyons Plan of Treatment Future Appointment(s):* 10/21/2020 11:15 am - Protime at [facility] * 02/13/2021 11:30 am - Amanuel Jones M.D. at [facility] 09/24/2020 - Amanuel Jones M.D.* E78.00 Pure hypercholesterolemia, unspecified * I48.20 Chronic atrial fibrillation, unspecified * Z79.01 USP (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 of anticoagulants * E11.65 Type [...] on Coumadin. We will continue to monitor.3. buttermaker continuous churn (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 of anticoagulants: Coumadin level is [...] diabetes mellitus with diabetic polyneuropathy: Following with [facility] for wound on her [...] to Reason for Referral Status Appt Date [facility] PATIENT CARE ASSOCIATE CONSULT FOR CELLULITIS LT FOOT Sent 06/12/2020 [address] [place] [address] [phone]
--- OUTSIDE RECORDS SUMMARY | 2020-11-24 10:42 | CCD | Continuity of Care Document ---
Author Author Lab Schedule, Ania Marquez Organization Unknown Address [address] [address] Phone Unavailable Care Team Providers Care Live In Companion Name Role Phone Amanuel Jones MD AUTM [phone] Alber Agustin MD AUTM [phone] Hector Roblero III, MD AUTM Unavailable [facility] AUTM Problems Active Problems [...] 4mg Tablets 1 daily or as directed 90sarah Jones M.D. Atenolol 50mg Tablets 1 by [...] CPT Code Status Date Vaccine Lot # [id number] Given 06/18/2020 Influenza Vaccin e Quadrivalent Preser/Antibiotic Free Im Use [id number] 45596 Given 09/10/2019 Pneumovax 23 [id number] 49970 Given 09/10/2019 Adacel- Tetanus Diphtheria P ertussis (Age64 & Under) [id number] 80920 Given 07/31/2019 Influenza Vaccin e Quadrivalent Preser/Antibiotic Free Im Use 213523 65763 Given 06/30/2018 Influenza Virus Vaccine, Quadrivalent (Cciiv4), Derived From 9 Given 07/26/2017 Influenza Vaccin e Quadrivalent Preser/Antibiotic Free Im Use 424408 Q2037 Given 09/07/2016 Fluvirin Virus Vaccine 35658 01 Q2037 Given 08/05/2015 Fluvirin Virus Vaccine 85396 01 57268 Given 08/06/2014 Influenza Virus Vaccine 16280 Given 07/25/2013 Influenza Virus Vaccine 69252 Given 07/20/2012 Influenza Virus Vaccine 90614 Given 07/13/2011 Influenza Virus Vaccine 66462 Given 07/13/2011 Influenza Virus Vaccine 33747 Given 10/05/2010 Pneumovax 23 17716 Given 07/03/2010 Influenza Virus Vaccine 34451 Given 12/03/2002 Adacel- Tetanus Diphtheria P ertussis (Age64 & Under) Vital Signs Date Vital Result Comment 09/03/2020 11:19am Weight 222.00 lb 08/19/2020 11:01am Weight 223.00 lb Results Test Acquired Date Facility Test Result H/L Range Note Complete Blood Count 09/12/2020 [facility] Planimeter Operator: Dr Felipe Spain [place] [id number] [phone] WBC 9.1 x10*3/UL 4.1 - 10.9 RBC [...] 7.7 x10*3/UL 2.0 - 7.8 A1c 09/12/2020 [facility] , Planimeter Operator: [place] [address] [phone] Hba1c 7.4 % High <5.7 1 Est Avg Glucose 166 mg/dL High 60 - 110 Comprehensive Chem Profile 09/12/2020 [facility] Planimeter Operator: [place] [address] [phone] Glucose 241 mg/dL High 74 - 99 [...] mL/min >60 3 Laboratory test finding 09/12/2020 [facility] Planimeter Operator: Dr Felipe [place], [place] [id number] [phone] Thyroid Stimulating Hormone 1.88 uIU/mL 0.3 6 - 3.74 Laboratory test finding 09/03/2020 Wi-Inr Inr 1.7 Laboratory test finding 08/19/2020 Wi-Inr Inr 1.4 Laboratory test finding 07/18/2020 Wi-Inr Inr 1.7 Microalbumin/Creatinine Urine 06/27/2020 [facility], Planimeter Operator: Dr Felipe [place], [place] [id number] [phone] Microalbumin Urine 19.2 mg/L 1.3 - 20.0 Urine Creatinine 44.5 mg/dL 30.0 - 125.0 Microalb/Creat Ratio 43.1 ug/mg High 0.0 - 30.0 A1c 06/26/2020 [facility] , Planimeter Operator: [place] [address] [phone] Hba1c 7.9 % High <5.7 4 Est Avg Glucose 180 mg/dL High 60 - 110 Comprehensive Chem Profile 06/26/2020 [facility], Planimeter Operator: [place] [address] [phone] Glucose 136 mg/dL High 74 - 99 [...] 60 mL/min >60 6 Lipid Profile 06/26/2020 [facility] Planimeter Operator: Dr Felipe Spain [place], [place] [address] [phone] Cholesterol 177 mg/dL 131 - 200 Triglycerides 99 mg/dL 30 - 150 HDL Cholesterol 51 mg/dL 35 - 60 LDL (Calculated) 106 CALC 50 - 159 Laboratory test finding 06/18/2020 Wi-Inr Inr 1.7 Laboratory test finding 05/09/2020 Wi-Inr Inr 1.6 Laboratory test finding 04/08/2020 Wi-Inr Inr 2.0 Laboratory test finding 03/17/2020 Wi-Inr Inr 2.0 1 Lab Result Notes: [...] LITTLE GFR LEFT ESRD GFR <15 ON MARKETING PROFESSOR 4 Lab Result Notes: Pre-Diabetes 5.7 - [...] LITTLE GFR LEFT ESRD GFR <15 ON MARKETING PROFESSOR Procedures Date Code Description Status 05/22/2020 [id number] Diabetic Retinal Eye Exam [facility] 03/27/2020 [id number] Diabetic Retinal Eye Exam [facility] 10/12/2019 [id number] Mammogram Completed 10/09/2019 [id number] Diabetic Retinal Eye Exam [facility] 06/20/2019 [id number] Colonoscopy Completed 12/14/2018 [id number] Diabetic Retinal Eye Exam [facility] 11/13/2018 [id number] Diabetic Retinal Eye Exam [facility] 09/29/2018 [id number] Mammogram Completed 04/07/2018 [id number] Diabetic Retinal Eye Exam [facility] 12/20/2017 [id number] Diabetic Retinal Eye Exam [facility] 12/14/2017 [id number] Diabetic Retinal Eye Exam [facility] 09/27/2017 [id number] Mammogram Completed 06/09/2017 [id number] Diabetic Retinal Eye Exam [facility] 04/07/2017 [id number] Diabetic Retinal Eye Exam [facility] 11/25/2016 [id number] Diabetic Retinal Eye Exam [facility] 09/23/2016 [id number] Mammogram Completed 02/01/2016 [id number] Diabetic Foot Exam Completed 01/21/2016 [id number] Diabetic Foot Exam Completed 01/20/2016 [id number] Diabetic Foot Exam Completed 10/14/2015 [id number] Diabetic Retinal Eye Exam [facility] 09/04/2015 [id number] Mammogram Completed 02/26/2015 [id number] Diabetic Retinal Eye Exam [facility] 08/03/2014 [id number] Mammogram Completed 08/25/2011 [id number] Bone Mineral Density Test [facility] 09/10/2008 [id number] Colonoscopy Completed 2007 729134582 Bone Mineral Density Test [facility] Description No Information Available Encounters Type Date Location Provider Dx Diagnosis Office Visit 05/26/2020 10:20a [facility] L03.116 Cellulitis of left lower [place] b Assessments Date Code Description Provider 09/12/2020 I48.20 Chronic atrial fibrillation, uns pecified Amanuel Jones M.D. 09/12/2020 I48.20 Chronic atrial fibrillation, uns pecified Lab Schedule 09/12/2020 Z79.01 USP (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 Amanuel Jones M.D. 09/12/2020 Z79.01 USP (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 Lab Schedule 09/12/2020 E11.65 Type 2 diabetes mellitus with hy perglycemia Amanuel Jones M.D. 09/12/2020 E11.65 Type 2 diabetes mellitus with hy perglycemia Lab Schedule 09/12/2020 E78.00 Pure hypercholesterolemia, unspe cified Amanuel Jones M.D. 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 Lila Mendez, [facility] 09/03/2020 Z79.01 USP (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 Protime 08/19/2020 Z51.81 Encounter for therapeutic drug l evel monitoring Lila Mendez, [facility] 08/19/2020 Z51.81 Encounter for therapeutic drug l evel monitoring Protime 08/19/2020 I48.20 Chronic atrial fibrillation, uns pecified Lila Mendez, [facility] 08/19/2020 I48.20 Chronic atrial fibrillation, uns pecified Protime 08/19/2020 Z79.01 tank terminal gauger (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 Lila Mendez [facility] 08/19/2020 Z79.01 tank terminal gauger (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 Protime 07/18/2020 Z51.81 Encounter for therapeutic drug l evel monitoring Lila Mendez, [employer] 07/18/2020 Z51.81 Encounter for therapeutic drug l evel monitoring Protime 07/18/2020 I48.20 Chronic atrial fibrillation, uns pecified Lila Mendez, [employer] 07/18/2020 I48.20 Chronic atrial fibrillation, uns pecified Protime 07/18/2020 Z79.01 USP (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 Lila Mendez, [employer] 07/18/2020 Z79.01 USP (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 Protime 06/27/2020 E11.65 Type 2 diabetes mellitus with hy perglycemia Amanuel Jones M.D. 06/27/2020 Z13.89 Encounter for screening for othe r disorder Amanuel Jones M.D. 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 06/18/2020 Z23 Encounter for immunization Proti me 05/26/2020 L03.116 Cellulitis of left lower limb Ro kane Tobin JR, PA 05/09/2020 I48.20 Chronic atrial fibrillation, uns pecified Lila [place], [employer] 05/09/2020 I48.20 Chronic atrial fibrillation, uns pecified Protime 05/09/2020 Z51.81 Encounter for therapeutic drug l evel monitoring Lila Le [place], [employer] 05/09/2020 Z51.81 Encounter for therapeutic drug l evel monitoring Protime 05/09/2020 Z79.01 tank terminal gauger (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 Lila Le [place], [employer] 04/08/2020 I48.20 Chronic atrial fibrillation, uns pecified Lila Le [place], [employer] 04/08/2020 I48.20 Chronic atrial fibrillation, uns pecified Protime 04/08/2020 Z79.01 USP (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 Illa Marlene [place], [employer] 04/08/2020 Z79.01 tank terminal gauger (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 Protime 04/08/2020 Z51.81 Encounter for therapeutic drug l evel monitoring Lila [place], [employer] 03/17/2020 I48.20 Chronic atrial fibrillation, uns pecified Lila [place], [facility] 03/17/2020 I48.20 Chronic atrial fibrillation, uns pecified Protime 03/17/2020 Z51.81 Encounter for therapeutic drug l evel monitoring Lila Le [place], [employer] 03/17/2020 Z51.81 Encounter for therapeutic drug l evel monitoring Protime 03/17/2020 Z79.01 tank terminal gauger (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 ALLISON Lyons Plan of Treatment Future Appointment(s):* 09/24/2020 9:00 am - Amanuel Jones M.D. at [facility] * 10/06/2020 11:30 am - Dane at [facility] 06/27/2020 - Amanuel Jones M.D.* E11.65 Type 2 diabetes mellitus with hyperglycemia * Z13.89 Encounter for screening for other disorder * Functional Status Description No Information Available Mental Status Description No Information Available Referrals Refer to Reason for Referral Status Appt Date [facility] INTAKE COORDINATOR CONSULT FOR CELLULITIS LT FOOT Sent 06/12/2020 [place] [address] [phone]
--- OUTSIDE RECORDS SUMMARY | 2020-11-24 10:42 | CCD | Continuity of Care Document ---
Author Author Ania JONES M.D. Organization Unknown Address [address] [facility] [address] [place] [address] Phone [phone] Care Team Providers Care Ammonium Nitrate Neutralizer Name Role Phone Amanuel Jones MD AUTM [phone] Alber Agustin MD AUTM [phone] Hector Roblero III, MD AUTM Unavailable [facility] Surgical Services AUTM Problems Active Problems [...] CPT Code Status Date Vaccine Lot # [id number] Given 06/18/2020 Influenza Vaccin e Quadrivalent Preser/Antibiotic Free Im Use [id number] 62304 Given 09/10/2019 Pneumovax 23 [id number] 94028 Given 09/10/2019 Adacel- Tetanus Diphtheria P ertussis (Age64 & Under) [id number] 82190 Given 07/31/2019 Influenza Vaccin e Quadrivalent Preser/Antibiotic Free Im Use 412173 97642 Given 06/30/2018 Influenza Virus Vaccine, Quadrivalent (Cciiv4), Derived From 1 Given 07/26/2017 Influenza Vaccin e Quadrivalent Preser/Antibiotic Free Im Use [id number] Q2037 Given 09/07/2016 Fluvirin Virus Vaccine 02533 01 Q2037 Given 08/05/2015 Fluvirin Virus Vaccine 39283 01 29058 Given 08/06/2014 Influenza Virus Vaccine 00623 Given 07/25/2013 Influenza Virus Vaccine 35480 Given 07/20/2012 Influenza Virus Vaccine 76625 Given 07/13/2011 Influenza Virus Vaccine 49035 Given 07/13/2011 Influenza Virus Vaccine 21573 Given 10/05/2010 Pneumovax 23 81871 Given 07/03/2010 Influenza Virus Vaccine 84193 Given 12/03/2002 Adacel- Tetanus Diphtheria P ertussis (Age64 & Under) Vital Signs Date Vital Result Comment 09/24/2020 8:53am BP Systolic 110 mmHg BP Diastolic 54 mmHg Heart Rate 86 /min Height 66 inches 5'6" Weight 214.00 lb O2 % BldC Oximetry 93 % BMI (Body Mass Index) 34.5 kg/m2 09/03/2020 11:19am Weight 222.00 lb Results Test Acquired Date Facility Test Result H/L Range Note Complete Blood Count 09/12/2020 [facility] Chief Deputy: Dr Felipe Spain [place] [id number] [phone] WBC 9.1 x10*3/UL 4.1 - 10.9 RBC [...] 7.7 x10*3/UL 2.0 - 7.8 A1c 09/12/2020 [facility] , Chief Deputy: [place] [address] [phone] Hba1c 7.4 % High <5.7 1 Est Avg Glucose 166 mg/dL High 60 - 110 Comprehensive Chem Profile 09/12/2020 [facility], Chief Deputy: [place] [address] [phone] Glucose 241 mg/dL High 74 - 99 [...] mL/min >60 3 Laboratory test finding 09/12/2020 [facility], Chief Deputy: [place] [address] [phone] Thyroid Stimulating Hormone 1.88 uIU/mL 0.3 6 - 3.74 Laboratory test finding 09/03/2020 [facility] 1.7 Laboratory test finding 08/19/2020 [facility] 1.4 Laboratory test finding 07/18/2020 [facility] 1.7 Microalbumin/Creatinine Urine 06/27/2020 [facility], Chief Deputy: Dr Felipe Spain [place], [place] [id number] [phone] Microalbumin Urine 19.2 mg/L 1.3 - 20.0 Urine Creatinine 44.5 mg/dL 30.0 - 125.0 Microalb/Creat Ratio 43.1 ug/mg High 0.0 - 30.0 A1c 06/26/2020 [facility] , Chief Deputy: [place] [address] [phone] Hba1c 7.9 % High <5.7 4 Est Avg Glucose 180 mg/dL High 60 - 110 Comprehensive Chem Profile 06/26/2020 [facility], Chief Deputy: [place] [address] [phone] Glucose 136 mg/dL High 74 - 99 [...] 60 mL/min >60 6 Lipid Profile 06/26/2020 [facility] , Chief Deputy: [place] [address] [phone] Cholesterol 177 mg/dL 131 - 200 Triglycerides [...] LITTLE GFR LEFT ESRD GFR <15 ON FEATHER EDGER 4 Lab Result Notes: Pre-Diabetes 5.7 - [...] LITTLE GFR LEFT ESRD GFR <15 ON FEATHER EDGER Procedures Date Code Description Status 05/22/2020 [id number] Diabetic Retinal Eye Exam [facility] 03/27/2020 [id number] Diabetic Retinal Eye Exam [facility] 10/12/2019 [id number] Mammogram Completed 10/09/2019 [id number] Diabetic Retinal Eye Exam [facility] 06/20/2019 [id number] Colonoscopy Completed 12/14/2018 [id number] Diabetic Retinal Eye Exam [facility] 11/13/2018 [id number] Diabetic Retinal Eye Exam [facility] 09/29/2018 [id number] Mammogram Completed 04/07/2018 [id number] Diabetic Retinal Eye Exam [facility] 12/20/2017 [id number] Diabetic Retinal Eye Exam [facility] 12/14/2017 [id number] Diabetic Retinal Eye Exam [facility] 09/27/2017 [id number] Mammogram Completed 06/09/2017 [id number] Diabetic Retinal Eye Exam [facility] 04/07/2017 [id number] Diabetic Retinal Eye Exam [facility] 11/25/2016 [id number] Diabetic Retinal Eye Exam [facility] 09/23/2016 [id number] Mammogram Completed 02/01/2016 [id number] Diabetic Foot Exam Completed 01/21/2016 [id number] Diabetic Foot Exam Completed 01/20/2016 [id number] Diabetic Foot Exam Completed 10/14/2015 [id number] Diabetic Retinal Eye Exam [facility] 09/04/2015 [id number] Mammogram Completed 02/26/2015 [id number] Diabetic Retinal Eye Exam [facility] 08/03/2014 [id number] Mammogram Completed 08/25/2011 [id number] Bone Mineral Density Test [facility] 09/10/2008 [id number] Colonoscopy Completed 2007 [id number] Bone Mineral Density Test [facility] Medical Devices Description No Information Available Encounters Type Date Location Provider Dx Diagnosis Office Visit 09/24/2020 9:00a [facility] M.D. 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 09/24/2020 I48.20 Chronic atrial fibrillation, uns pecified Amanuel Jones M.D. 09/24/2020 Z79.01 [facility] (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 Amanuel Jones [...] fibrillation, uns pecified Lab Schedule 09/12/2020 Z79.01 rat exterminator (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 Amaunel Jones M.D. 09/12/2020 Z79.01 [facility] (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 Lab Schedule 09/12/2020 E11.65 Type 2 diabetes mellitus with hy perglycemia Amanuel Jones M.D. 09/12/2020 E11.65 Type 2 diabetes mellitus with hy perglycemia Lab Schedule 09/12/2020 E78.00 Pure hypercholesterolemia, unspe cified Amanuel Jones M.D. 09/12/2020 E78.00 Pure hypercholesterolemia, unspe cified Lab Schedule 09/03/2020 Z51.81 Encounter for therapeutic drug l evel monitoring Lila Le Edison, [facility] 09/03/2020 Z51.81 Encounter for therapeutic drug l evel monitoring Protime 09/03/2020 I48.20 Chronic atrial fibrillation, uns pecified Lila Le Edison, [facility] 09/03/2020 I48.20 Chronic atrial fibrillation, uns pecified Protime 09/03/2020 Z79.01 [facility] (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 Lila Le Edison, [facility] 09/03/2020 Z79.01 [facility] (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 Protime 08/19/2020 Z51.81 Encounter for therapeutic drug l evel monitoring Lila Le Edison, [facility] 08/19/2020 Z51.81 Encounter for therapeutic drug l evel monitoring Protime 08/19/2020 I48.20 Chronic atrial fibrillation, uns pecified Lila Le Edison, [facility] 08/19/2020 I48.20 Chronic atrial fibrillation, uns pecified Protime 08/19/2020 Z79.01 rat exterminator (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 Lila Le Edison, [facility] 08/19/2020 Z79.01 [facility] (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 Protime 07/18/2020 Z51.81 Encounter for therapeutic drug l evel monitoring Lila Le Edison, [facility] 07/18/2020 Z51.81 Encounter for therapeutic drug l evel monitoring Protime 07/18/2020 I48.20 Chronic atrial fibrillation, uns pecified Lila Le Edison, [facility] 07/18/2020 I48.20 Chronic atrial fibrillation, uns pecified Protime 07/18/2020 Z79.01 [facility] (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 Lila Le Edison, [facility] 07/18/2020 Z79.01 rat exterminator (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 Protime 06/27/2020 E11.65 Type 2 diabetes mellitus with hy perglycemia Amanuel Jones M.D. 06/27/2020 Z13.89 Encounter for screening for othe r disorder Amanuel Jones M.D. 06/27/2020 E78.00 Pure hypercholesterolemia, unspe cified Amanuel Jones M.D. 06/27/2020 I48.20 Chronic atrial fibrillation, uns pecified Amanuel Jones M.D. 06/27/2020 Z79.01 [facility] (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 Amanuel Jones [...] Chronic atrial fibrillation, uns pecified Lila Mendez, [facility] 06/18/2020 I48.20 Chronic atrial fibrillation, uns pecified Protime 06/18/2020 Z51.81 Encounter for therapeutic drug l evel monitoring Lila Mendez [facility] 06/18/2020 Z51.81 Encounter for therapeutic drug l evel monitoring Protime 06/18/2020 Z79.01 [facility] (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 Lila Marlene Edison, SECURITIES AND REAL ESTATE DIRECTOR 06/18/2020 Z79.01 rat exterminator (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 Protime 06/18/2020 Z23 Encounter for immunization Amanuel Jones M.D. 06/18/2020 Z23 Encounter for immunization Proti me 05/26/2020 L03.116 Cellulitis of left lower limb Ro kane Tobin JR, [place] 05/09/2020 I48.20 Chronic atrial fibrillation, uns pecified Lila Le Edison, SECURITIES AND REAL ESTATE DIRECTOR 05/09/2020 I48.20 Chronic atrial fibrillation, uns pecified Protime 05/09/2020 Z51.81 Encounter for therapeutic drug l evel monitoring Lila Marlene Zaragoza, SECURITIES AND REAL ESTATE DIRECTOR 05/09/2020 Z51.81 Encounter for therapeutic drug l evel monitoring Protime 05/09/2020 Z79.01 rat exterminator (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 Lila Mendez, SECURITIES AND REAL ESTATE DIRECTOR 04/08/2020 I48.20 Chronic atrial fibrillation, uns pecified Lila Le Edison, SECURITIES AND REAL ESTATE DIRECTOR 04/08/2020 I48.20 Chronic atrial fibrillation, uns pecified Protime 04/08/2020 Z79.01 [facility] (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 Lila Marlene Edison, SECURITIES AND REAL ESTATE DIRECTOR 04/08/2020 Z79.01 rat exterminator (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 Protime 04/08/2020 Z51.81 Encounter for therapeutic drug l evel monitoring Lila Mendez, SECURITIES AND REAL ESTATE DIRECTOR Plan of Treatment Future Appointment(s):* 02/13/2021 11:30 am - Amanuel Jones M.D. at [facility] * 10/06/2020 11:30 am - Protime at [facility] 09/24/2020 - Amanuel Jones M.D.* E78.00 Pure hypercholesterolemia, unspecified * I48.20 Chronic atrial fibrillation, unspecified * Z79.01 [facility] (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 of anticoagulants * E11.65 Type [...] on Coumadin. We will continue to monitor.3. [facility] (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 of anticoagulants: Coumadin level is [...] diabetes mellitus with diabetic polyneuropathy: Following with [facility] for wound on her [...] to Reason for Referral Status Appt Date [facility] CONSULT FOR CELLULITIS LT FOOT Sent 06/12/2020 [address] [place] [address] [phone]
--- OUTSIDE RECORDS SUMMARY | 2020-11-24 10:42 | CCD | Continuity of Care Document ---
Author Author Ania JONES M.D. Organization Unknown Address [address] [facility] [address] [place] [address] Phone [phone] Care Team Providers Care Frickertron Checker Name Role Phone Amanuel Jones MD AUTM [phone] Alber Agustin MD AUTM [phone] Hector Roblero III, MD AUTM Unavailable [facility] Surgical Services AUTM Problems Active [...] CPT Code Status Date Vaccine Lot # [id number] Given 06/18/2020 Influenza Vaccin e Quadrivalent Preser/Antibiotic Free Im Use [id number] 81688 Given 09/10/2019 Pneumovax 23 [id number] 12788 Given 09/10/2019 Adacel- Tetanus Diphtheria P ertussis (Age64 & Under) [id number] 04350 Given 07/31/2019 Influenza Vaccin e Quadrivalent Preser/Antibiotic Free Im Use [id number] 74154 Given 06/30/2018 Influenza Virus Vaccine, Quadrivalent (Cciiv4), Derived From 5 Given 07/26/2017 Influenza Vaccin e Quadrivalent Preser/Antibiotic Free Im Use [id number] Q2037 Given 09/07/2016 Fluvirin Virus Vaccine 53961 01 Q2037 Given 08/05/2015 Fluvirin Virus Vaccine 11589 01 65060 Given 08/06/2014 Influenza Virus Vaccine 59239 Given 07/25/2013 Influenza Virus Vaccine 23197 Given 07/20/2012 Influenza Virus Vaccine 54503 Given 07/13/2011 Influenza Virus Vaccine 75386 Given 07/13/2011 Influenza Virus Vaccine 01275 Given 10/05/2010 Pneumovax 23 47310 Given 07/03/2010 Influenza Virus Vaccine 17603 Given 12/03/2002 Adacel- Tetanus Diphtheria P ertussis (Age64 & Under) Vital Signs Date Vital Result Comment 09/03/2020 11:19am Weight 222.00 lb 08/19/2020 11:01am Weight 223.00 lb Results Test Acquired Date Facility Test Result H/L Range Note Complete Blood Count 09/12/2020 [facility] Tool Rental Technician: [place] [address] [phone] WBC 9.1 x10*3/UL 4.1 - 10.9 RBC [...] 7.7 x10*3/UL 2.0 - 7.8 A1c 09/12/2020 [facility] , Tool Rental Technician: [place] [address] [phone] Hba1c 7.4 % High <5.7 1 Est Avg Glucose 166 mg/dL High 60 - 110 Comprehensive Chem Profile 09/12/2020 [facility], Tool Rental Technician: [place] [address] [phone] Glucose 241 mg/dL High 74 - 99 [...] mL/min >60 3 Laboratory test finding 09/12/2020 [facility], Tool Rental Technician: [place] [address] [phone] Thyroid Stimulating Hormone 1.88 uIU/mL 0.3 6 - 3.74 Laboratory test finding 09/03/2020 [facility] 1.7 Laboratory test finding 08/19/2020 [facility] 1.4 Laboratory test finding 07/18/2020 [facility] 1.7 Microalbumin/Creatinine Urine 06/27/2020 [facility], Tool Rental Technician: Dr Felipe Spain [place], [place] [id number] [phone] Microalbumin Urine 19.2 mg/L 1.3 - 20.0 Urine Creatinine 44.5 mg/dL 30.0 - 125.0 Microalb/Creat Ratio 43.1 ug/mg High 0.0 - 30.0 A1c 06/26/2020 [facility] Tool Rental Technician: Dr Felipe Spain [place], [place] [address] [phone] Hba1c 7.9 % High <5.7 4 Est Avg Glucose 180 mg/dL High 60 - 110 Comprehensive Chem Profile 06/26/2020 [facility], Tool Rental Technician: Dr Felipe Spain [place] [address] [phone] Glucose 136 mg/dL High 74 - 99 [...] 60 mL/min >60 6 Lipid Profile 06/26/2020 [facility] , Tool Rental Technician: Dr Felipe Spain [place], [place] [address] [phone] Cholesterol 177 mg/dL 131 - 200 Triglycerides [...] LITTLE GFR LEFT ESRD GFR <15 ON SALES SERVICE REP 4 Lab Result Notes: Pre-Diabetes 5.7 - [...] LITTLE GFR LEFT ESRD GFR <15 ON SALES SERVICE REP Procedures Date Code Description Status 05/22/2020 [id number] Diabetic Retinal Eye Exam [facility] 03/27/2020 [id number] Diabetic Retinal Eye Exam [facility] 10/12/2019 [id number] Mammogram Completed 10/09/2019 [id number] Diabetic Retinal Eye Exam [facility] 06/20/2019 [id number] Colonoscopy Completed 12/14/2018 [id number] Diabetic Retinal Eye Exam [facility] 11/13/2018 [id number] Diabetic Retinal Eye Exam [facility] 09/29/2018 [id number] Mammogram Completed 04/07/2018 [id number] Diabetic Retinal Eye Exam [facility] 12/20/2017 [id number] Diabetic Retinal Eye Exam [facility] 12/14/2017 [id number] Diabetic Retinal Eye Exam [facility] 09/27/2017 [id number] Mammogram Completed 06/09/2017 [id number] Diabetic Retinal Eye Exam [facility] 04/07/2017 [id number] Diabetic Retinal Eye Exam [facility] 11/25/2016 [id number] Diabetic Retinal Eye Exam [facility] 09/23/2016 [id number] Mammogram Completed 02/01/2016 [id number] Diabetic Foot Exam Completed 01/21/2016 [id number] Diabetic Foot Exam Completed 01/20/2016 [id number] Diabetic Foot Exam Completed 10/14/2015 [id number] Diabetic Retinal Eye Exam [facility] 09/04/2015 [id number] Mammogram Completed 02/26/2015 [id number] Diabetic Retinal Eye Exam [facility] 08/03/2014 [id number] Mammogram Completed 08/25/2011 [id number] Bone Mineral Density Test [facility] 09/10/2008 [id number] Colonoscopy Completed 2007 [id number] Bone Mineral Density Test [facility] Medical Devices Description No Information Available Encounters Type Date Location Provider Dx Diagnosis Office Visit 05/26/2020 10:20a [facility], PSher Tobin JR, [place] L03.116 Cellulitis of left [place] b Assessments Date Code Description Provider 09/12/2020 I48.20 Chronic atrial fibrillation, uns pecified Amanuel Jones M.D. 09/12/2020 I48.20 Chronic atrial fibrillation, uns pecified Lab Schedule 09/12/2020 Z79.01 jail (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 Amanuel Jones M.D. 09/12/2020 Z79.01 jail (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 Lab Schedule 09/12/2020 E11.65 Type 2 diabetes mellitus with hy perglycemia Amanuel Jones M.D. 09/12/2020 E11.65 Type 2 diabetes mellitus with hy perglycemia Lab Schedule 09/12/2020 E78.00 Pure hypercholesterolemia, unspe cified Amanuel Jones M.D. 09/12/2020 E78.00 Pure hypercholesterolemia, unspe cified Lab Schedule 09/03/2020 Z51.81 Encounter for therapeutic drug l evel monitoring Lila Mendez, [facility] 09/03/2020 Z51.81 Encounter for therapeutic drug l evel monitoring Protime 09/03/2020 I48.20 Chronic atrial fibrillation, uns pecified Lila Mendez, [facility] 09/03/2020 I48.20 Chronic atrial fibrillation, uns pecified Protime 09/03/2020 Z79.01 jail (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 Lila Mendez, [facility] 09/03/2020 Z79.01 termite treater helper (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 Protime 08/19/2020 Z51.81 Encounter for therapeutic drug l evel monitoring Lila Mendez, [facility] 08/19/2020 Z51.81 Encounter for therapeutic drug l evel monitoring Protime 08/19/2020 I48.20 Chronic atrial fibrillation, uns pecified Lila Mendez [facility] 08/19/2020 I48.20 Chronic atrial fibrillation, uns pecified Protime 08/19/2020 Z79.01 termite treater helper (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 Lila Marlene [place], [employer] 08/19/2020 Z79.01 termite treater helper (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 Protime 07/18/2020 Z51.81 Encounter for therapeutic drug l evel monitoring Lila Mendez, [employer] 07/18/2020 Z51.81 Encounter for therapeutic drug l evel monitoring Protime 07/18/2020 I48.20 Chronic atrial fibrillation, uns pecified Lila Marlene [place], [employer] 07/18/2020 I48.20 Chronic atrial fibrillation, uns pecified Protime 07/18/2020 Z79.01 jail (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 Lila Rosario [place], [employer] 07/18/2020 Z79.01 jail (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 Protime 06/27/2020 E11.65 Type 2 diabetes mellitus with hy perglycemia Amanuel oJnes M.D. 06/27/2020 Z13.89 Encounter for screening for [...] Chronic atrial fibrillation, uns pecified Lila Marlene [place], [employer] 06/18/2020 I48.20 Chronic atrial fibrillation, uns pecified Protime 06/18/2020 Z51.81 Encounter for therapeutic drug l evel monitoring Lila Rosario [place], [employer] 06/18/2020 Z51.81 Encounter for therapeutic drug l evel monitoring Protime 06/18/2020 Z79.01 termite treater helper (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 Lila Marlene [place], [employer] 06/18/2020 Z79.01 termite treater helper (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 Protime 06/18/2020 Z23 Encounter for immunization Amanuel Jones M.D. 06/18/2020 Z23 Encounter for immunization Proti me 05/26/2020 L03.116 Cellulitis of left lower limb Ro kane Tobin JR, [place] 05/09/2020 I48.20 Chronic atrial fibrillation, uns pecified Lila Le [place], [employer] 05/09/2020 I48.20 Chronic atrial fibrillation, uns pecified Protime 05/09/2020 Z51.81 Encounter for therapeutic drug l evel monitoring Lila Le [place], [employer] 05/09/2020 Z51.81 Encounter for therapeutic drug l evel monitoring Protime 05/09/2020 Z79.01 jail (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 Lila Le [place], [employer] 04/08/2020 I48.20 Chronic atrial fibrillation, uns pecified Lila Le [place], [employer] 04/08/2020 I48.20 Chronic atrial fibrillation, uns pecified Protime 04/08/2020 Z79.01 termite treater helper (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 Lila Rosario [place], [employer] 04/08/2020 Z79.01 jail (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 Protime 04/08/2020 Z51.81 Encounter for therapeutic drug l evel monitoring Lila Marlene [place], [employer] 03/17/2020 I48.20 Chronic atrial fibrillation, uns pecified Lila Le [place], [employer] 03/17/2020 I48.20 Chronic atrial fibrillation, uns pecified Protime 03/17/2020 Z51.81 Encounter for therapeutic drug l evel monitoring Lila Marlene [place], [employer] 03/17/2020 Z51.81 Encounter for therapeutic drug l evel monitoring Protime 03/17/2020 Z79.01 jail (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 ALLISON Lyons Plan of Treatment Future Appointment(s):* 09/24/2020 9:00 am - Amanuel Jones M.D. at [facility] * 10/06/2020 11:30 am - Dane at [facility] 06/27/2020 - Amanuel Jones M.D.* E11.65 Type 2 diabetes mellitus with hyperglycemia * Z13.89 Encounter for screening for other disorder * Functional Status Description No Information Available Mental Status Description No Information Available Referrals Refer to Reason for Referral Status Appt Date [facility] [employer] ARCHIT[employer] CONSULT FOR CELLULITIS LT FOOT Sent 06/12/[address] [place] [address] [phone]
--- OUTSIDE RECORDS SUMMARY | 2020-11-24 10:42 | CCD | Continuity of Care Document ---
Author Author Ania JONES M.D. Organization Unknown Address [address] [facility] [address] [place] [address] Phone [phone] Care Team Providers Care Massage Coordinator Name Role Phone Amanuel Jones MD AUTM [phone] Alber Agustin MD AUTM [phone] Hector Roblero III, MD AUTM Unavailable [facility] AUTM [phone] Problems Active Problems Provider Date Type 2 [...] CPT Code Status Date Vaccine Lot # 53231 Given 06/18/2020 Influenza Vaccin e Quadrivalent Preser/Antibiotic Free Im Use [id number] 65278 Given 09/10/2019 Pneumovax 23 [id number] 12053 Given 09/10/2019 Adacel- Tetanus Diphtheria P ertussis (Age64 & Under) [id number] 95793 Given 07/31/2019 Influenza Vaccin e Quadrivalent Preser/Antibiotic Free Im Use 453194 75733 Given 06/30/2018 Influenza Virus Vaccine, Quadrivalent (Cciiv4), Derived From 4 Given 07/26/2017 Influenza Vaccin e Quadrivalent Preser/Antibiotic Free Im Use 136602 [id number] Given 09/07/2016 Fluvirin Virus Vaccine 23753 01 Q2037 Given 08/05/2015 Fluvirin Virus Vaccine 11774 01 29157 Given 08/06/2014 Influenza Virus Vaccine 62071 Given 07/25/2013 Influenza Virus Vaccine 92659 Given 07/20/2012 Influenza Virus Vaccine 02534 Given 07/13/2011 Influenza Virus Vaccine 80384 Given 07/13/2011 Influenza Virus Vaccine 17090 Given 10/05/2010 Pneumovax 23 08913 Given 07/03/2010 Influenza Virus Vaccine 03517 Given 12/03/2002 Adacel- Tetanus Diphtheria P ertussis [...] H/L Range Note Complete Blood Count 09/12/2020 [facility] Station Inspector: Dr Felipe pSain [place] [id number] [phone] WBC 9.1 x10*3/UL 4.1 - 10.9 RBC [...] 7.7 x10*3/UL 2.0 - 7.8 A1c 09/12/2020 [facility] , Station Inspector: [place] [address] [phone] Hba1c 7.4 % High <5.7 1 Est Avg Glucose 166 mg/dL High 60 - 110 Comprehensive Chem Profile 09/12/2020 [facility], Station Inspector: Dr Fel[place] [address] [phone] Glucose 241 mg/dL High 74 - 99 [...] mL/min >60 3 Laboratory test finding 09/12/2020 [facility], Station Inspector: [place] [address] [phone] Thyroid Stimulating Hormone 1.88 uIU/mL 0.3 6 - 3.74 Laboratory test finding 09/03/2020 [facility] 1.7 Laboratory test finding 08/19/2020 [facility] 1.4 Laboratory test finding 07/18/2020 [facility] In[facility] 1.7 Microalbumin/Creatinine Urine 06/27/2020 [facility], Station Inspector: Dr Felipe Spain [place], [place] [id number] [phone] Microalbumin Urine 19.2 mg/L 1.3 - 20.0 Urine Creatinine 44.5 mg/dL 30.0 - 125.0 Microalb/Creat Ratio 43.1 ug/mg High 0.0 - 30.0 A1c 06/26/2020 [facility] , Station Inspector: Dr Felipe [place] [address] [phone] Hba1c 7.9 % High <5.7 4 Est Avg Glucose 180 mg/dL High 60 - 110 Comprehensive Chem Profile 06/26/2020 [facility] Dr Felipe [place] [address] [phone] Glucose 136 mg/dL High 74 - 99 [...] 60 mL/min >60 6 Lipid Profile 06/26/2020 [facility]: Dr Felipe [place] [address] [phone] Cholesterol 177 mg/dL 131 - 200 Triglycerides [...] LITTLE GFR LEFT ESRD GFR <15 ON CONTRACT AGENT 4 Lab Result Notes: Pre-Diabetes 5.7 - [...] LITTLE GFR LEFT ESRD GFR <15 ON CONTRACT AGENT Procedures Date Code Description Status 05/22/2020 [id number] Diabetic Retinal Eye Exam [facility] 03/27/2020 [id number] Diabetic Retinal Eye Exam [facility] 10/12/2019 [id number] Mammogram Completed 10/09/2019 [id number] Diabetic Retinal Eye Exam [facility] 06/20/2019 [id number] Colonoscopy Completed 12/14/2018 [id number] Diabetic Retinal Eye Exam [facility] 11/13/2018 [id number] Diabetic Retinal Eye Exam [facility] 09/29/2018 [id number] Mammogram Completed 04/07/2018 [id number] Diabetic Retinal Eye Exam [facility] 12/20/2017 [id number] Diabetic Retinal Eye Exam [facility] 12/14/2017 [id number] Diabetic Retinal Eye Exam [facility] 09/27/2017 [id number] Mammogram Completed 06/09/2017 [id number] Diabetic Retinal Eye Exam [facility] 04/07/2017 [id number] Diabetic Retinal Eye Exam [facility] 11/25/2016 [id number] Diabetic Retinal Eye Exam [facility] 09/23/2016 [id number] Mammogram Completed 02/01/2016 [id number] Diabetic Foot Exam Completed 01/21/2016 [id number] Diabetic Foot Exam Completed 01/20/2016 [id number] Diabetic Foot Exam Completed 10/14/2015 [id number] Diabetic Retinal Eye Exam [facility] 09/04/2015 [id number] Mammogram Completed 02/26/2015 [id number] Diabetic Retinal Eye Exam [facility] 08/03/2014 [id number] Mammogram Completed 08/25/2011 [id number] Bone Mineral Density Test [facility] 09/10/2008 [id number] Colonoscopy Completed 2007 [id number] Bone Mineral Density Test [facility] Medical Devices Description No Information Available Encounters Type Date Location Provider Dx Diagnosis Office Visit 05/26/2020 10:20a [facility] [place] , [place] L03.116 Cellulitis of left lower [place] b Assessments Date Code Description Provider 09/12/2020 I48.20 Chronic atrial fibrillation, uns pecified Amanuel Joens M.D. 09/12/2020 I48.20 Chronic atrial fibrillation, uns pecified Lab Schedule 09/12/2020 Z79.01 terminologist (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 Amanuel Jones M.D. 09/12/2020 Z79.01 terminologist (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 Lab Schedule 09/12/2020 E11.65 Type 2 diabetes mellitus with hy perglycemia Amanuel Jones M.D. 09/12/2020 E11.65 Type 2 diabetes mellitus with hy perglycemia Lab Schedule 09/12/2020 E78.00 Pure hypercholesterolemia, unspe cified Amanuel Jones M.D. 09/12/2020 E78.00 Pure hypercholesterolemia, unspe cified Lab Schedule 09/03/2020 Z51.81 Encounter for therapeutic drug l evel monitoring Lila Mendez, [facility] 09/03/2020 Z51.81 Encounter for therapeutic drug l evel monitoring Protime 09/03/2020 I48.20 Chronic atrial fibrillation, uns pecified Lila Mendez, [facility] 09/03/2020 I48.20 Chronic atrial fibrillation, uns pecified Protime 09/03/2020 Z79.01 FPC (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 Lila Mendez, [facility] 09/03/2020 Z79.01 FPC (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 Protime 08/19/2020 Z51.81 Encounter for therapeutic drug l evel monitoring Lila Mendez, [facility] 08/19/2020 Z51.81 Encounter for therapeutic drug l evel monitoring Protime 08/19/2020 I48.20 Chronic atrial fibrillation, uns pecified Lila Mendez, [employer] 08/19/2020 I48.20 Chronic atrial fibrillation, uns pecified Protime 08/19/2020 Z79.01 FPC (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 Lila Mendez, [employer] 08/19/2020 Z79.01 FPC (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 Protime 07/18/2020 Z51.81 Encounter for therapeutic drug l evel monitoring Lila Mendez, [employer] 07/18/2020 Z51.81 Encounter for therapeutic drug l evel monitoring Protime 07/18/2020 I48.20 Chronic atrial fibrillation, uns pecified Lila Marlene Zaragoza, [employer] 07/18/2020 I48.20 Chronic atrial fibrillation, uns pecified Protime 07/18/2020 Z79.01 terminologist (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 Lila Mendez, [facility] 07/18/2020 Z79.01 FPC (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 Protime 06/27/2020 [...] Chronic atrial fibrillation, uns pecified Lila Mendez, [employer] 06/18/2020 I48.20 Chronic atrial fibrillation, uns pecified Protime 06/18/2020 Z51.81 Encounter for therapeutic drug l evel monitoring Lila Mendez, [employer] 06/18/2020 Z51.81 Encounter for therapeutic drug l evel monitoring Protime 06/18/2020 Z79.01 FPC (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 Lila Mendez, [employer] 06/18/2020 Z79.01 terminologist (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 Protime 06/18/2020 Z23 Encounter for immunization Amanuel Jones M.D. 06/18/2020 Z23 Encounter for immunization Proti me 05/26/2020 L03.116 Cellulitis of left lower limb Ro kane Tobin JR, [place] 05/09/2020 I48.20 Chronic atrial fibrillation, uns pecified Lila Le Tensas, [employer] 05/09/2020 I48.20 Chronic atrial fibrillation, uns pecified Protime 05/09/2020 Z51.81 Encounter for therapeutic drug l evel monitoring Lila Le Tensas, [employer] 05/09/2020 Z51.81 Encounter for therapeutic drug l evel monitoring Protime 05/09/2020 Z79.01 FPC (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 Lila Le Tensas, [employer] 04/08/2020 I48.20 Chronic atrial fibrillation, uns pecified Lila Le Tensas, [employer] 04/08/2020 I48.20 Chronic atrial fibrillation, uns pecified Protime 04/08/2020 Z79.01 terminologist (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 Lila Le Tensas, [employer] 04/08/2020 Z79.01 terminologist (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 Protime 04/08/2020 Z51.81 Encounter for therapeutic drug l evel monitoring Lila Mendez, [employer] Plan of Treatment Future Appointment(s):* 10/06/2020 11:30 am - [facility] at [facility] 06/27/2020 - Amanuel Jones M.D.* E11.65 Type 2 diabetes mellitus with hyperglycemia * Z13.89 Encounter for screening for other disorder * Functional Status Description No Information Available Mental Status Description No Information Available Referrals Refer to Reason for Referral Status Appt Date [facility] SALES AND DISTRIBUTION CLERK CONSULT FOR CELLULITIS LT FOOT Sent 06/12/2020 [address] [place] [address] [phone]
--- OUTSIDE RECORDS SUMMARY | 2020-11-24 10:42 | CCD | Continuity of Care Document ---
Author Author Ania Vela Organization Unknown Address [address] [place] [address] [address] [place] [address] Phone [phone] Care Team Providers Care Network Operations Center Technician Name Role Phone Amanuel Jones MD AUTM [phone] Alber Agustin MD AUTM [phone] Hector Roblero III, MD AUTM Unavailable [facility] AUTM Problems Active Problems Provider [...] M.D. 07/26/2017 Administration Of Flu Vaccine Inj ection Amanuel Jones M.D. 09/07/2016 Administration Of Flu Vaccine Inj monicaion Amanuel Jones M.D. 08/05/2015 Immunizations CPT Code Status Date Vaccine Lot # 26220 Given 06/18/2020 Influenza Vaccin e Quadrivalent Preser/Antibiotic Free Im Use 373197 70992 Given 09/10/2019 Pneumovax 23 [id number] 73743 Given 09/10/2019 Adacel- Tetanus Diphtheria P ertussis (Age64 & Under) [id number] 08337 Given 07/31/2019 Influenza Vaccin e Quadrivalent Preser/Antibiotic Free Im Use [id number] 45270 Given 06/30/2018 Influenza Virus Vaccine, Quadrivalent (Cciiv4), Derived From 0 Given 07/26/2017 Influenza Vaccin e Quadrivalent Preser/Antibiotic Free Im Use [id number] Q2037 Given 09/07/2016 Fluvirin Virus Vaccine 53402 01 Q2037 Given 08/05/2015 Fluvirin Virus Vaccine 63877 01 02915 Given 08/06/2014 Influenza Virus Vaccine 37582 Given 07/25/2013 Influenza Virus Vaccine 96572 Given 07/20/2012 Influenza Virus Vaccine 39835 Given 07/13/2011 Influenza Virus Vaccine 46956 Given 07/13/2011 Influenza Virus Vaccine 35157 Given 10/05/2010 Pneumovax 23 85273 Given 07/03/2010 Influenza Virus Vaccine 01641 Given 12/03/2002 Adacel- Tetanus Diphtheria P ertussis [...] Wi-Inr Inr 2.4 Complete Blood Count 09/12/2020 [facility] Supervisor Air Conditioning Installer: [place] [address] [phone] WBC 9.1 x10*3/UL 4.1 - 10.9 RBC [...] 7.7 x10*3/UL 2.0 - 7.8 A1c 09/12/2020 [facility] , Supervisor Air Conditioning Installer: [place] [address] [phone] Hba1c 7.4 % High <5.7 1 Est Avg Glucose 166 mg/dL High 60 - 110 Comprehensive Chem Profile 09/12/2020 [facility], Supervisor Air Conditioning Installer: [place] [address] [phone] Glucose 241 mg/dL High 74 - 99 [...] mL/min >60 3 Laboratory test finding 09/12/2020 [facility] Supervisor Air Conditioning Installer: [place] [address] [phone] Thyroid Stimulating Hormone 1.88 uIU/mL 0.3 6 - 3.74 Laboratory test finding 09/03/2020 Wi-Inr Inr 1.7 Laboratory test finding 08/19/2020 Wi-Inr Inr 1.4 Laboratory test finding 07/18/2020 Wi-Inr Inr 1.7 Microalbumin/Creatinine Urine 06/27/2020 [facility], Supervisor Air Conditioning Installer: Dr Felipe Spain [place], [place] [id number] [phone] Microalbumin Urine 19.2 mg/L 1.3 - 20.0 Urine Creatinine 44.5 mg/dL 30.0 - 125.0 Microalb/Creat Ratio 43.1 ug/mg High 0.0 - 30.0 A1c 06/26/2020 [facility] , Supervisor Air Conditioning Installer: [place] [address] [phone] Hba1c 7.9 % High <5.7 4 Est Avg Glucose 180 mg/dL High 60 - 110 Comprehensive Chem Profile 06/26/2020 [facility], Supervisor Air Conditioning Installer: [place] [address] [phone] Glucose 136 mg/dL High 74 - 99 [...] 60 mL/min >60 6 Lipid Profile 06/26/2020 [facility] , Supervisor Air Conditioning Installer: [place] [address] [phone] Cholesterol 177 mg/dL 131 - 200 Triglycerides [...] LITTLE GFR LEFT ESRD GFR <15 ON NUCLEAR EQUIPMENT OPERATOR 4 Lab Result Notes: Pre-Diabetes 5.7 - [...] LITTLE GFR LEFT ESRD GFR <15 ON NUCLEAR EQUIPMENT OPERATOR Procedures Date Code Description Status 05/22/2020 [id number] Diabetic Retinal Eye Exam [facility] 03/27/2020 [id number] Diabetic Retinal Eye Exam [facility] 10/12/2019 [id number] Mammogram Completed 10/09/2019 [id number] Diabetic Retinal Eye Exam [facility] 06/20/2019 [id number] Colonoscopy Completed 12/14/2018 [id number] Diabetic Retinal Eye Exam [facility] 11/13/2018 [id number] Diabetic Retinal Eye Exam [facility] 09/29/2018 [id number] Mammogram Completed 04/07/2018 [id number] Diabetic Retinal Eye Exam [facility] 12/20/2017 [id number] Diabetic Retinal Eye Exam [facility] 12/14/2017 [id number] Diabetic Retinal Eye Exam [facility] 09/27/2017 [id number] Mammogram Completed 06/09/2017 [id number] Diabetic Retinal Eye Exam [facility] 04/07/2017 [id number] Diabetic Retinal Eye Exam [facility] 11/25/2016 [id number] Diabetic Retinal Eye Exam [facility] 09/23/2016 [id number] Mammogram Completed 02/01/2016 [id number] Diabetic Foot Exam Completed 01/21/2016 [id number] Diabetic Foot Exam Completed 01/20/2016 [id number] Diabetic Foot Exam Completed 10/14/2015 [id number] Diabetic Retinal Eye Exam [facility] 09/04/2015 [id number] Mammogram Completed 02/26/2015 [id number] Diabetic Retinal Eye Exam [facility] 08/03/2014 [id number] Mammogram Completed 08/25/2011 [id number] Bone Mineral Density Test [facility] 09/10/2008 [id number] Colonoscopy Completed 2007 [id number] Bone Mineral Density Test [facility] Medical Devices Description No Information Available Encounters Type Date Location Provider Dx Diagnosis Office Visit 09/24/2020 9:[facility]a [facility] Amanuel Jones M.D. 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 Office Visit 05/26/2020 10:[facility] [place] , [place] L03.116 Cellulitis of left lower [place] b Assessments Date Code Description Provider 10/07/2020 Z51.81 Encounter for therapeutic drug l evel monitoring Lila Mendez, [facility] 10/07/2020 Z51.81 Encounter for therapeutic drug l evel monitoring Protime 10/07/2020 I48.20 Chronic atrial fibrillation, uns pecified Lila Mendez, [facility] 10/07/2020 I48.20 Chronic atrial fibrillation, uns pecified Protime 10/07/2020 Z79.01 terminal system operator (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 Lila Mendez [facility] 10/07/2020 Z79.01 terminal system operator (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 Protime 09/24/2020 E78.00 Pure hypercholesterolemia, unspe cified Amanuel Jones M.D. 09/24/2020 I48.20 Chronic atrial fibrillation, uns pecified Amanuel Jones M.D. 09/24/2020 Z79.01 nursing home (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 Amanuel [...] uns pecified Lab Schedule 09/12/2020 Z79.01 terminal system operator (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 Amanuel Jones M.D. 09/12/2020 Z79.01 terminal system operator (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 Lab Schedule 09/12/2020 E11.65 Type 2 diabetes mellitus with hy perglycemia Amanuel Jones M.D. 09/12/2020 E11.65 Type 2 diabetes mellitus with hy perglycemia Lab Schedule 09/12/2020 E78.00 Pure hypercholesterolemia, unspe cified Amanuel Jones M.D. 09/12/2020 E78.00 Pure hypercholesterolemia, unspe cified Lab Schedule 09/03/2020 Z51.81 Encounter for therapeutic drug l evel monitoring Lila Mendez, [facility] 09/03/2020 Z51.81 Encounter for therapeutic drug l evel monitoring Protime 09/03/2020 I48.20 Chronic atrial fibrillation, uns pecified Lila Mendez, [facility] 09/03/2020 I48.20 Chronic atrial fibrillation, uns pecified Protime 09/03/2020 Z79.01 nursing home (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 Lila Mendez, [facility] 09/03/2020 Z79.01 terminal system operator (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 Protime 08/19/2020 Z51.81 Encounter for therapeutic drug l evel monitoring Lila Mendez, [facility] 08/19/2020 Z51.81 Encounter for therapeutic drug l evel monitoring Protime 08/19/2020 I48.20 Chronic atrial fibrillation, uns pecified Lila Mendez, [facility] 08/19/2020 I48.20 Chronic atrial fibrillation, uns pecified Protime 08/19/2020 Z79.01 nursing home (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 Lila Mendez, [facility] 08/19/2020 Z79.01 terminal system operator (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 Protime 07/18/2020 Z51.81 Encounter for therapeutic drug l evel monitoring Lila Mendez, [facility] 07/18/2020 Z51.81 Encounter for therapeutic drug l evel monitoring Protime 07/18/2020 I48.20 Chronic atrial fibrillation, uns pecified Lila Mendez, [facility] 07/18/2020 I48.20 Chronic atrial fibrillation, uns pecified Protime 07/18/2020 Z79.01 nursing home (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 Lila Mendez, [facility] 07/18/2020 Z79.01 terminal system operator (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 Protime 06/27/2020 E11.65 Type 2 diabetes mellitus with hy perglycemia Amanuel Jones M.D. 06/27/2020 Z13.89 Encounter for screening for othe r disorder Amanuel Jones M.D. 06/27/2020 E78.00 Pure hypercholesterolemia, unspe cified Amanuel Jones M.D. 06/27/2020 I48.20 Chronic atrial fibrillation, uns victoria Jones M.D. 06/27/2020 Z79.01 nursing home (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 Amanuel [...] 06/26/2020 E78.00 Pure hypercholesterolemia, unspe cified Amanuel Joens M.D. 06/26/2020 E78.00 Pure hypercholesterolemia, unspe cified Lab Schedule 06/26/2020 I10 Essential (primary) hypertension Amanuel Jones M.D. 06/26/2020 I10 Essential (primary) hypertension Lab Schedule 06/18/2020 I48.20 Chronic atrial fibrillation, uns pecified GOLDY LyonsP 06/18/2020 I48.20 Chronic atrial fibrillation, uns pecified Protime 06/18/2020 Z51.81 Encounter for therapeutic drug l evel monitoring Lila Mendez [employer] 06/18/2020 Z51.81 Encounter for therapeutic drug l evel monitoring Protime 06/18/2020 Z79.01 nursing home (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 ALLISON Lyons 06/18/2020 Z79.01 terminal system operator (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 Protime 06/18/2020 Z23 Encounter for immunization Amanuel Jones M.D. 06/18/2020 Z23 Encounter for immunization Proti me 05/26/2020 L03.116 Cellulitis of left lower limb Ro kane Tobin JR, BRANDI 05/09/2020 I48.20 Chronic atrial fibrillation, uns pecified Lila Mendez [facility] 05/09/2020 I48.20 Chronic atrial fibrillation, uns pecified Protime 05/09/2020 Z51.81 Encounter for therapeutic drug l evel monitoring ALLISON Lyons 05/09/2020 Z51.81 Encounter for therapeutic drug l evel monitoring Protime 05/09/2020 Z79.01 terminal system operator (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 ALLISON Lyons Plan of Treatment Future Appointment(s):* 10/21/2020 11:15 am - Protime at [facility] * 02/13/2021 11:30 am - Amanuel Jones M.D. at [facility] 09/24/2020 - Amanuel Jones M.D.* E78.00 Pure hypercholesterolemia, unspecified * I48.20 Chronic atrial fibrillation, unspecified * Z79.01 terminal system operator (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 of anticoagulants * E11.65 Type [...] on Coumadin. We will continue to monitor.3. nursing home (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 of anticoagulants: Coumadin level is [...] mellitus with diabetic polyneuropathy: Following with [facility] for wound on [...] Reason for Referral Status Appt Date [facility] CAR REPAIRER HELPER CONSULT FOR CELLULITIS LT FOOT Sent 06/12/2020 [address] [place], [place] [id number] [phone]
--- OUTSIDE RECORDS SUMMARY | 2020-11-24 10:42 | CCD | Continuity of Care Document ---
Author Author Ania Vela Organization Unknown Address [address] [place] [address] [address] [place] [address] Phone [phone] Care Team Providers Care Water Pump Assembler Name Role Phone Amanuel Jones MD AUTM [phone] Alber Agustin MD AUTM [phone] Hector Roblero III, MD AUTM Unavailable [facility] AUTM [phone] Problems Active Problems Provider Date Type 2 [...] 2 times daily x 7 days 14caps BARNDI Caputo JR 05/26/2020 - 06/27/2020 Administration Of [...] CPT Code Status Date Vaccine Lot # [id number] Given 06/18/2020 Influenza Vaccin e Quadrivalent Preser/Antibiotic Free Im Use [id number] 30174 Given 09/10/2019 Pneumovax 23 [id number] 05983 Given 09/10/2019 Adacel- Tetanus Diphtheria P ertussis (Age64 & Under) [id number] 12369 Given 07/31/2019 Influenza Vaccin e Quadrivalent Preser/Antibiotic Free Im Use 195928 73213 Given 06/30/2018 Influenza Virus Vaccine, Quadrivalent (Cciiv4), Derived From 9 Given 07/26/2017 Influenza Vaccin e Quadrivalent Preser/Antibiotic Free Im Use [id number] Q2037 Given 09/07/2016 Fluvirin Virus Vaccine 98378 01 Q2037 Given 08/05/2015 Fluvirin Virus Vaccine [id number] 01 08622 Given 08/06/2014 Influenza Virus Vaccine 57650 Given 07/25/2013 Influenza Virus Vaccine 29863 Given 07/20/2012 Influenza Virus Vaccine 42962 Given 07/13/2011 Influenza Virus Vaccine 89025 Given 07/13/2011 Influenza Virus Vaccine 28088 Given 10/05/2010 Pneumovax 23 99449 Given 07/03/2010 Influenza Virus Vaccine 39953 Given 12/03/2002 Adacel- Tetanus Diphtheria P ertussis [...] Wi-Inr Inr 2.4 Complete Blood Count 09/12/2020 [facility] Wildlife Conservation Officer: [place] [address] [phone] WBC 9.1 x10*3/UL 4.1 - 10.9 RBC [...] 7.7 x10*3/UL 2.0 - 7.8 A1c 09/12/2020 [facility] , Wildlife Conservation Officer: [place] [address] [phone] Hba1c 7.4 % High <5.7 1 Est Avg Glucose 166 mg/dL High 60 - 110 Comprehensive Chem Profile 09/12/2020 [facility], Wildlife Conservation Officer: [place] [address] [phone] Glucose 241 mg/dL High 74 - 99 [...] mL/min >60 3 Laboratory test finding 09/12/2020 [facility] Wildlife Conservation Officer: [place] [address] [phone] Thyroid Stimulating Hormone 1.88 uIU/mL 0.3 6 - 3.74 Laboratory test finding 09/03/2020 [facility] 1.7 Laboratory test finding 08/19/2020 [facility] 1.4 Laboratory test finding 07/18/2020 [facility] 1.7 Microalbumin/Creatinine Urine 06/27/2020 [facility], Wildlife Conservation Officer: Dr Felipe Spain [place], [place] [id number] [phone] Microalbumin Urine 19.2 mg/L 1.3 - 20.0 Urine Creatinine 44.5 mg/dL 30.0 - 125.0 Microalb/Creat Ratio 43.1 ug/mg High 0.0 - 30.0 A1c 06/26/2020 [facility] , Wildlife Conservation Officer: [place] [address] [phone] Hba1c 7.9 % High <5.7 4 Est Avg Glucose 180 mg/dL High 60 - 110 Comprehensive Chem Profile 06/26/2020 [facility], Wildlife Conservation Officer: [place] [address] [phone] Glucose 136 mg/dL High 74 - 99 [...] 60 mL/min >60 6 Lipid Profile 06/26/2020 [facility] , Wildlife Conservation Officer: [place] [address] [phone] Cholesterol 177 mg/dL 131 - 200 Triglycerides [...] LITTLE GFR LEFT ESRD GFR <15 ON CHIEF RESERVOIR ENGINEERING 4 Lab Result Notes: Pre-Diabetes 5.7 - [...] LITTLE GFR LEFT ESRD GFR <15 ON CHIEF RESERVOIR ENGINEERING Procedures Date Code Description Status 05/22/2020 [id number] Diabetic Retinal Eye Exam [facility] 03/27/2020 [id number] Diabetic Retinal Eye Exam [facility] 10/12/2019 [id number] Mammogram Completed 10/09/2019 [id number] Diabetic Retinal Eye Exam [facility]ple [facility] 06/20/2019 [id number] Colonoscopy Completed 12/14/2018 [id number] Diabetic Retinal Eye Exam [facility] 11/13/2018 [id number] Diabetic Retinal Eye Exam [facility] 09/29/2018 [id number] Mammogram Completed 04/07/2018 [id number] Diabetic Retinal Eye Exam [facility] 12/20/2017 [id number] Diabetic Retinal Eye Exam [facility] 12/14/2017 [id number] Diabetic Retinal Eye Exam [facility] 09/27/2017 [id number] Mammogram Completed 06/09/2017 [id number] Diabetic Retinal Eye Exam [facility] 04/07/2017 [id number] Diabetic Retinal Eye Exam [facility] 11/25/2016 [id number] Diabetic Retinal Eye Exam [facility] 09/23/2016 [id number] Mammogram Completed 02/01/2016 [id number] Diabetic Foot Exam Completed 01/21/2016 [id number] Diabetic Foot Exam Completed 01/20/2016 [id number] Diabetic Foot Exam Completed 10/14/2015 [id number] Diabetic Retinal Eye Exam [facility] 09/04/2015 [id number] Mammogram Completed 02/26/2015 [id number] Diabetic Retinal Eye Exam [facility] 08/03/2014 [id number] Mammogram Completed 08/25/2011 [id number] Bone Mineral Density Test [facility] 09/10/2008 [id number] Colonoscopy Completed 2007 [id number] Bone Mineral Density Test [facility] Medical Devices Description No Information Available Encounters Type Date Location Provider Dx Diagnosis Office Visit 09/24/2020 9:00a [facility] Amanuel Jones M.D. 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 09/24/2020 I48.20 Chronic atrial fibrillation, uns pecified Amanuel Jones M.D. 09/24/2020 Z79.01 [facility] (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 Amanuel Jones [...] fibrillation, uns pecified Lab Schedule 09/12/2020 Z79.01 [facility] (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 Amanuel Jones M.D. 09/12/2020 Z79.01 terminal operations supervisor (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 Lab Schedule 09/12/2020 E11.65 Type 2 diabetes mellitus with hy perglycemia Amanuel Jones M.D. 09/12/2020 E11.65 Type 2 diabetes mellitus with hy perglycemia Lab Schedule 09/12/2020 E78.00 Pure hypercholesterolemia, unspe cified Amanuel Jones M.D. 09/12/2020 E78.00 Pure hypercholesterolemia, unspe cified Lab Schedule 09/03/2020 Z51.81 Encounter for therapeutic drug l evel monitoring Lila Le [place], [facility] 09/03/2020 Z51.81 Encounter for therapeutic drug l evel monitoring Protime 09/03/2020 I48.20 Chronic atrial fibrillation, uns pecified Lila Le [place], [facility] 09/03/2020 I48.20 Chronic atrial fibrillation, uns pecified Protime 09/03/2020 Z79.01 [facility] (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 Lila Le [place], [facility] 09/03/2020 Z79.01 [facility] (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 Protime 08/19/2020 Z51.81 Encounter for therapeutic drug l evel monitoring Lila Le [place], [facility] 08/19/2020 Z51.81 Encounter for therapeutic drug l evel monitoring Protime 08/19/2020 I48.20 Chronic atrial fibrillation, uns pecified Lila Le [place], [facility] 08/19/2020 I48.20 Chronic atrial fibrillation, uns pecified Protime 08/19/2020 Z79.01 terminal operations supervisor (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 Lila Le [place], [facility] 08/19/2020 Z79.01 [facility] (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 Protime 07/18/2020 Z51.81 Encounter for therapeutic drug l evel monitoring Lila Le [place], [facility] 07/18/2020 Z51.81 Encounter for therapeutic drug l evel monitoring Protime 07/18/2020 I48.20 Chronic atrial fibrillation, uns pecified Lila Le [place], [facility] 07/18/2020 I48.20 Chronic atrial fibrillation, uns pecified Protime 07/18/2020 Z79.01 [facility] (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 Lila Mendez [facility] 07/18/2020 Z79.01 [facility] (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 Protime 06/27/2020 E11.65 Type 2 diabetes mellitus with hy perglycemia Amanuel Jones M.D. 06/27/2020 Z13.89 Encounter for screening for othe r disorder Amanuel Jones M.D. 06/27/2020 E78.00 Pure hypercholesterolemia, unspe cified Amanuel Jones M.D. 06/27/2020 I48.20 Chronic atrial fibrillation, uns victoria Jones M.D. 06/27/2020 Z79.01 [facility] (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 Amanuel Jones [...] drug l evel monitoring Lila Marlene Zaragoza, [employer] 06/18/2020 Z51.81 Encounter for therapeutic drug l evel monitoring Protime 06/18/2020 Z79.01 [facility] (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 Lila Mendez, [employer] 06/18/2020 Z79.01 [facility] (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 Protime 06/18/2020 Z23 Encounter for immunization Amanuel Jones M.D. 06/18/2020 Z23 Encounter for immunization Proti me 05/26/2020 L03.116 Cellulitis of left lower limb Ro kane Tobin JR, PA 05/09/2020 I48.20 Chronic atrial fibrillation, uns pecified Lila Marlene Zaragoza, [employer] STITCH[employer] 05/09/2020 I48.20 Chronic atrial fibrillation, uns pecified Protime 05/09/2020 Z51.81 Encounter for therapeutic drug l evel monitoring Lila Mendez, [employer] 05/09/2020 Z51.81 Encounter for therapeutic drug l evel monitoring Protime 05/09/2020 Z79.01 terminal operations supervisor (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 Lila Mendez, [employer] 04/08/2020 I48.20 Chronic atrial fibrillation, uns pecified Lila Marlene Zaragoza, [employer] 04/08/2020 I48.20 Chronic atrial fibrillation, uns pecified Protime 04/08/2020 Z79.01 [facility] (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 Lila Mendez, [employer] 04/08/2020 Z79.01 terminal operations supervisor (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 Protime 04/08/2020 Z51.81 Encounter for therapeutic drug l evel monitoring ALLISON Lyons Plan of Treatment Future Appointment(s):* 10/21/2020 11:15 am - Protime at [facility] * 02/13/2021 11:30 am - Amanuel Jones M.D. at [facility] 09/24/2020 - Amanuel Jones M.D.* E78.00 Pure hypercholesterolemia, unspecified * I48.20 Chronic atrial fibrillation, unspecified * Z79.01 terminal operations supervisor (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 of anticoagulants * E11.65 Type [...] on Coumadin. We will continue to monitor.3. [facility] (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 of anticoagulants: Coumadin level is [...] diabetes mellitus with diabetic polyneuropathy: Following with [facility] for wound on [...] to Reason for Referral Status Appt Date [facility] POLITICAL REPORTER CONSULT FOR CELLULITIS LT FOOT Sent 06/12/2020 [address] [place], [place] [id number] [phone]
--- OUTSIDE RECORDS SUMMARY | 2020-11-24 10:43 | CCD | Continuity of Care Document ---
Author Author Lab Schedule, Ania Marquez Organization Unknown Address [address] [address] Phone Unavailable Care Team Providers Care Scale Technician Name Role Phone Amanuel Jones MD AUTM [phone] Alber Agustin MD AUTM [phone] Hector Roblero III, MD AUTM Unavailable [facility] AUTM [phone] Problems Active Problems Provider Date Type 2 [...] CPT Code Status Date Vaccine Lot # [id number] Given 06/18/2020 Influenza Vaccin e Quadrivalent Preser/Antibiotic Free Im Use 600959 49507 Given 09/10/2019 Pneumovax 23 [id number] 98249 Given 09/10/2019 Adacel- Tetanus Diphtheria P ertussis (Age64 & Under) [id number] 42571 Given 07/31/2019 Influenza Vaccin e Quadrivalent Preser/Antibiotic Free Im Use 110344 68346 Given 06/30/2018 Influenza Virus Vaccine, Quadrivalent (Cciiv4), Derived From 7 Given 07/26/2017 Influenza Vaccin e Quadrivalent Preser/Antibiotic Free Im Use [id number] Q2037 Given 09/07/2016 Fluvirin Virus Vaccine 28151 01 Q2037 Given 08/05/2015 Fluvirin Virus Vaccine 63561 01 12599 Given 08/06/2014 Influenza Virus Vaccine 75664 Given 07/25/2013 Influenza Virus Vaccine 84114 Given 07/20/2012 Influenza Virus Vaccine 97281 Given 07/13/2011 Influenza Virus Vaccine 75380 Given 07/13/2011 Influenza Virus Vaccine 05660 Given 10/05/2010 Pneumovax 23 28082 Given 07/03/2010 Influenza Virus Vaccine 63985 Given 12/03/2002 Adacel- Tetanus Diphtheria P ertussis (Age64 & Under) Vital Signs Date Vital Result Comment 09/03/2020 11:19am Weight 222.00 lb 08/19/2020 11:01am Weight 223.00 lb Results Test Acquired Date Facility Test Result H/L Range Note Laboratory test finding 09/03/2020 [facility] 1.7 Laboratory test finding 08/19/2020 [facility] 1.4 Laboratory test finding 07/18/2020 [facility] 1.7 Microalbumin/Creatinine Urine 06/27/2020 [facility], Life Skills Trainer: [place] [address] [phone] Microalbumin Urine 19.2 mg/L 1.3 - 20.0 Urine Creatinine 44.5 mg/dL 30.0 - 125.0 Microalb/Creat Ratio 43.1 ug/mg High 0.0 - 30.0 A1c 06/26/2020 [facility] , Life Skills Trainer: [place] [address] [phone] Hba1c 7.9 % High <5.7 1 Est Avg Glucose 180 mg/dL High 60 - 110 Comprehensive Chem Profile 06/26/2020 [facility], Life Skills Trainer: [place] [address] [phone] Glucose 136 mg/dL High 74 - 99 2 BUN 19 mg/dL High 7 - 18 [...] >60 GFR >= 60 mL/min >60 3 Lipid Profile 06/26/2020 [facility] Life Skills Trainer: [place] [address] [phone] Cholesterol 177 mg/dL 131 - 200 Triglycerides [...] LITTLE GFR LEFT ESRD GFR <15 ON RAG CUTTING MACHINE FEEDER Procedures Date Code Description Status 05/22/2020 [id number] Diabetic Retinal Eye Exam [facility] 03/27/2020 [id number] Diabetic Retinal Eye Exam [facility] 10/12/2019 [id number] Mammogram Completed 10/09/2019 [id number] Diabetic Retinal Eye Exam [facility]ple [facility] 06/20/2019 [id number] Colonoscopy Completed 12/14/2018 [id number] Diabetic Retinal Eye Exam [facility]ple [facility] 11/13/2018 [id number] Diabetic Retinal Eye Exam [facility] 09/29/2018 [id number] Mammogram Completed 04/07/2018 [id number] Diabetic Retinal Eye Exam [facility] 12/20/2017 [id number] Diabetic Retinal Eye Exam [facility] 12/14/2017 770912748 Diabetic Retinal Eye Exam [facility] 09/27/2017 [id number] Mammogram Completed 06/09/2017 [id number] Diabetic Retinal Eye Exam [facility] 04/07/2017 260292827 Diabetic Retinal Eye Exam [facility] 11/25/2016 [id number] Diabetic Retinal Eye Exam [facility] 09/23/2016 [id number] Mammogram Completed 02/01/2016 [id number] Diabetic Foot Exam Completed 01/21/2016 [id number] Diabetic Foot Exam Completed 01/20/2016 691031557 Diabetic Foot Exam Completed 10/14/2015 [id number] Diabetic Retinal Eye Exam [facility] 09/04/2015 [id number] Mammogram Completed 02/26/2015 [id number] Diabetic Retinal Eye Exam [facility] 08/03/2014 [id number] Mammogram Completed 08/25/2011 644080443 Bone Mineral Density Test [facility]ple [facility] 09/10/2008 [id number] Colonoscopy Completed 2007 [id number] Bone Mineral Density Test [facility]ple [facility] Medical Devices Description No Information Available Encounters Type Date Location Provider Dx Diagnosis Office Visit 05/26/2020 10:20a [facility] Yoav Tobin JR, PA L03.116 Cellulitis of left lower [place] b Assessments Date Code Description Provider 09/03/2020 Z51.81 Encounter for therapeutic drug l evel monitoring ALLISON Lyons 09/03/2020 Z51.81 Encounter for therapeutic drug l evel monitoring Protime 09/03/2020 I48.20 Chronic atrial fibrillation, uns pecified ALLISON Lyons 09/03/2020 I48.20 Chronic atrial fibrillation, uns pecified Protime 09/03/2020 Z79.01 ocean transportation intermediary (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 ALLISON Lyons 09/03/2020 Z79.01 prison (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 Protime 08/19/2020 Z51.81 Encounter for therapeutic drug l evel monitoring ALLISON Lyons 08/19/2020 Z51.81 Encounter for therapeutic drug l evel monitoring Protime 08/19/2020 I48.20 Chronic atrial fibrillation, uns pecified Lila Le [place], SHEET METAL LAYOUT MECHANIC 08/19/2020 I48.20 Chronic atrial fibrillation, uns pecified Protime 08/19/2020 Z79.01 ocean transportation intermediary (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 Lila Marlene [place], SHEET METAL LAYOUT MECHANIC 08/19/2020 Z79.01 ocean transportation intermediary (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 Protime 07/18/2020 Z51.81 Encounter for therapeutic drug l evel monitoring Lila Le [place], SHEET METAL LAYOUT MECHANIC 07/18/2020 Z51.81 Encounter for therapeutic drug l evel monitoring Protime 07/18/2020 I48.20 Chronic atrial fibrillation, uns pecified Lila Marlene [place], SHEET METAL LAYOUT MECHANIC 07/18/2020 I48.20 Chronic atrial fibrillation, uns pecified Protime 07/18/2020 Z79.01 ocean transportation intermediary (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 Lila Marlene [place], SHEET METAL LAYOUT MECHANIC 07/18/2020 Z79.01 prison (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 Protime 06/27/2020 [...] Chronic atrial fibrillation, uns pecified Lila Le [place], SHEET METAL LAYOUT MECHANIC 06/18/2020 I48.20 Chronic atrial fibrillation, uns pecified Protime 06/18/2020 Z51.81 Encounter for therapeutic drug l evel monitoring Lila Marlene [place], SHEET METAL LAYOUT MECHANIC 06/18/2020 Z51.81 Encounter for therapeutic drug l evel monitoring Protime 06/18/2020 Z79.01 ocean transportation intermediary (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 Lila Le [place], SHEET METAL LAYOUT MECHANIC 06/18/2020 Z79.01 prison (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 Protime 06/18/2020 Z23 Encounter for immunization Amanuel Jones M.D. 06/18/2020 Z23 Encounter for immunization Proti me 05/26/2020 L03.116 Cellulitis of left lower limb Ro kane Tobin JR, PA 05/09/2020 I48.20 Chronic atrial fibrillation, uns pecified Lila Le [place], SHEET METAL LAYOUT MECHANIC 05/09/2020 I48.20 Chronic atrial fibrillation, uns pecified Protime 05/09/2020 Z51.81 Encounter for therapeutic drug l evel monitoring Lila Le [place], SHEET METAL LAYOUT MECHANIC 05/09/2020 Z51.81 Encounter for therapeutic drug l evel monitoring Protime 05/09/2020 Z79.01 prison (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 Lila Le [place], SHEET METAL LAYOUT MECHANIC 04/08/2020 I48.20 Chronic atrial fibrillation, uns pecified Lila Le [place], SHEET METAL LAYOUT MECHANIC 04/08/2020 I48.20 Chronic atrial fibrillation, uns pecified Protime 04/08/2020 Z79.01 ocean transportation intermediary (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 Lila Le [place], SHEET METAL LAYOUT MECHANIC 04/08/2020 Z79.01 prison (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 Protime 04/08/2020 Z51.81 Encounter for therapeutic drug l evel monitoring Lila Le [place], SHEET METAL LAYOUT MECHANIC 03/17/2020 I48.20 Chronic atrial fibrillation, uns pecified Lila Le [place], SHEET METAL LAYOUT MECHANIC 03/17/2020 I48.20 Chronic atrial fibrillation, uns pecified Protime 03/17/2020 Z51.81 Encounter for therapeutic drug l evel monitoring Lila Le [place], SHEET METAL LAYOUT MECHANIC 03/17/2020 Z51.81 Encounter for therapeutic drug l evel monitoring Protime 03/17/2020 Z79.01 ocean transportation intermediary (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 ALLISON Lyons Plan of Treatment Future Appointment(s):* 10/06/2020 11:30 am - Dane at [facility] * 09/15/2020 3:00 pm - Amanuel Jones M.D. at [facility] 06/27/2020 - Amanuel Jones M.D.* E11.65 Type 2 diabetes mellitus with hyperglycemia * Z13.89 Encounter for screening for other disorder * Functional Status Description No Information Available Mental Status Description No Information Available Referrals Refer to Reason for Referral Status Appt Date [facility] [employer]HALT TAMPING MACHINE OPERATOR CONSULT FOR CELLULITIS LT FOOT Sent 06/12/2020 [address] [place] [address] [phone]
--- OUTSIDE RECORDS SUMMARY | 2020-11-24 10:43 | CCD | Continuity of Care Document ---
Author Author Lab Schedule, Ania Marquez Organization Unknown Address [address] [address] Phone Unavailable Care Team Providers Care Supervisor Diagnostic Name Role Phone Amanuel Jones MD AUTM [phone] Alber Agustin MD AUTM [phone] Hector Roblero III, MD AUTM Unavailable [facility] AUTM [phone] Problems Active Problems Provider Date Type 2 [...] CPT Code Status Date Vaccine Lot # [id number] Given 06/18/2020 Influenza Vaccin e Quadrivalent Preser/Antibiotic Free Im Use [id number] 09830 Given 09/10/2019 Pneumovax 23 [id number] 90516 Given 09/10/2019 Adacel- Tetanus Diphtheria P ertussis (Age64 & Under) [id number] 56894 Given 07/31/2019 Influenza Vaccin e Quadrivalent Preser/Antibiotic Free Im Use [id number] 19213 Given 06/30/2018 Influenza Virus Vaccine, Quadrivalent ([id number]), Derived From 8 Given 07/26/2017 Influenza Vaccin e Quadrivalent Preser/Antibiotic Free Im Use 134990 Q2037 Given 09/07/2016 Fluvirin Virus Vaccine 74842 01 Q2037 Given 08/05/2015 Fluvirin Virus Vaccine 44499 01 99820 Given 08/06/2014 Influenza Virus Vaccine 13222 Given 07/25/2013 Influenza Virus Vaccine 68549 Given 07/20/2012 Influenza Virus Vaccine 01964 Given 07/13/2011 Influenza Virus Vaccine 65947 Given 07/13/2011 Influenza Virus Vaccine 63398 Given 10/05/2010 Pneumovax 23 03050 Given 07/03/2010 Influenza Virus Vaccine 23956 Given 12/03/2002 Adacel- Tetanus Diphtheria P ertussis (Age64 & Under) Vital Signs Date Vital Result Comment 09/03/2020 11:19am Weight 222.00 lb 08/19/2020 11:01am Weight 223.00 lb Results Test Acquired Date Facility Test Result H/L Range Note Complete Blood Count 09/12/2020 [facility] Welt Stitcher: Dr Felipe Spain [place] [id number] [phone] WBC 9.1 x10*3/UL 4.1 - 10.9 RBC [...] 7.7 x10*3/UL 2.0 - 7.8 A1c 09/12/2020 [facility] , Welt Stitcher: [place] [address] [phone] Hba1c 7.4 % High <5.7 1 Est Avg Glucose 166 mg/dL High 60 - 110 Comprehensive Chem Profile 09/12/2020 [facility] Welt Stitcher: [place] [address] [phone] Glucose 241 mg/dL High 74 - 99 [...] mL/min >60 3 Laboratory test finding 09/12/2020 [facility] [employer] [facility] Welt Stitcher: Dr Felipe [place], [place] [id number] [phone] Thyroid Stimulating Hormone 1.88 uIU/mL 0.3 6 - 3.74 Laboratory test finding 09/03/2020 [facility] 1.7 Laboratory test finding 08/19/2020 [facility] 1.4 Laboratory test finding 07/18/2020 [facility] 1.7 Microalbumin/Creatinine Urine 06/27/2020 [facility], Welt Stitcher: Dr Felipe [place], [place] [id number] [phone] Microalbumin Urine 19.2 mg/L 1.3 - 20.0 Urine Creatinine 44.5 mg/dL 30.0 - 125.0 Microalb/Creat Ratio 43.1 ug/mg High 0.0 - 30.0 A1c 06/26/2020 [facility] , Welt Stitcher: [place] [address] [phone] Hba1c 7.9 % High <5.7 4 Est Avg Glucose 180 mg/dL High 60 - 110 Comprehensive Chem Profile 06/26/2020 [facility] Welt Stitcher: [place] [address] [phone] Glucose 136 mg/dL High 74 - 99 [...] 60 mL/min >60 6 Lipid Profile 06/26/2020 [facility] Stitcher: Dr Felipe [place], [place] [id number] [phone] Cholesterol 177 mg/dL 131 - 200 Triglycerides [...] LITTLE GFR LEFT ESRD GFR <15 ON CREATIVE WRITER 4 Lab Result Notes: Pre-Diabetes 5.7 - [...] LITTLE GFR LEFT ESRD GFR <15 ON CREATIVE WRITER Procedures Date Code Description Status 05/22/2020 906817114 Diabetic Retinal Eye Exam [facility] 03/27/2020 [id number] Diabetic Retinal Eye Exam [facility] 10/12/2019 [id number] Mammogram Completed 10/09/2019 [id number] Diabetic Retinal Eye Exam [facility] 06/20/2019 [id number] Colonoscopy Completed 12/14/2018 [id number] Diabetic Retinal Eye Exam [facility] 11/13/2018 [id number] Diabetic Retinal Eye Exam [facility] 09/29/2018 [id number] Mammogram Completed 04/07/2018 [id number] Diabetic Retinal Eye Exam [facility] 12/20/2017 [id number] Diabetic Retinal Eye Exam [facility] 12/14/2017 [id number] Diabetic Retinal Eye Exam [facility] 09/27/2017 [id number] Mammogram Completed 06/09/2017 [id number] Diabetic Retinal Eye Exam [facility] 04/07/2017 [id number] Diabetic Retinal Eye Exam [facility] 11/25/2016 [id number] Diabetic Retinal Eye Exam [facility] 09/23/2016 [id number] Mammogram Completed 02/01/2016 [id number] Diabetic Foot Exam Completed 01/21/2016 [id number] Diabetic Foot Exam Completed 01/20/2016 [id number] Diabetic Foot Exam Completed 10/14/2015 [id number] Diabetic Retinal Eye Exam [facility] 09/04/2015 [id number] Mammogram Completed 02/26/2015 [id number] Diabetic Retinal Eye Exam [facility] 08/03/2014 [id number] Mammogram Completed 08/25/2011 [id number] Bone Mineral Density Test [facility] 09/10/2008 [id number] Colonoscopy Completed 2007 [id number] Bone Mineral Density Test Comple [email or web address] Description No Information Available Encounters Type Date Location Provider Dx Diagnosis Office Visit 05/26/2020 10[facility] L03.116 Cellulitis of left lower [place] b Assessments Date Code Description Provider 09/12/2020 I48.20 Chronic atrial fibrillation, uns pecified Amanuel Jones M.D. 09/12/2020 I48.20 Chronic atrial fibrillation, uns pecified Lab Schedule 09/12/2020 Z79.01 alf (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 Amanuel Jones M.D. 09/12/2020 Z79.01 alf (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 Lab Schedule 09/12/2020 E11.65 Type 2 diabetes mellitus with hy perglycemia Amanuel Jones M.D. 09/12/2020 E11.65 Type 2 diabetes mellitus with hy perglycemia Lab Schedule 09/12/2020 E78.00 Pure hypercholesterolemia, unspe cified Amanuel Jones M.D. 09/12/2020 E78.00 Pure hypercholesterolemia, unspe cified Lab Schedule 09/03/2020 Z51.81 Encounter for therapeutic drug l evel monitoring Lila Mendez, [facility] 09/03/2020 Z51.81 Encounter for therapeutic drug l evel monitoring Protime 09/03/2020 I48.20 Chronic atrial fibrillation, uns pecified Lila Mendez, [facility] 09/03/2020 I48.20 Chronic atrial fibrillation, uns pecified Protime 09/03/2020 Z79.01 intermediate project manager (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 Lila Mendez, [facility] 09/03/2020 Z79.01 alf (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 Protime 08/19/2020 Z51.81 Encounter for therapeutic drug l evel monitoring Lila Mendez, [facility] 08/19/2020 Z51.81 Encounter for therapeutic drug l evel monitoring Protime 08/19/2020 I48.20 Chronic atrial fibrillation, uns pecified Lila Mendez, [facility] 08/19/2020 I48.20 Chronic atrial fibrillation, uns pecified Protime 08/19/2020 Z79.01 intermediate project manager (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 Lila Mendez [facility] 08/19/2020 Z79.01 intermediate project manager (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 Protime 07/18/2020 Z51.81 Encounter for therapeutic drug l evel monitoring Lila Mendez, [employer]ENT [employer]UC[employer] 07/18/2020 Z51.81 Encounter for therapeutic drug l evel monitoring Protime 07/18/2020 I48.20 Chronic atrial fibrillation, uns pecified Lila Mendez, EXCEPTIONAL STUDENT EDUCATION TEACHER 07/18/2020 I48.20 Chronic atrial fibrillation, uns pecified Protime 07/18/2020 Z79.01 alf (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 Lila Mendez, EXCEPTIONAL STUDENT EDUCATION TEACHER 07/18/2020 Z79.01 alf (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 Protime 06/27/2020 [...] Chronic atrial fibrillation, uns pecified Lila Mendez, EXCEPTIONAL STUDENT EDUCATION TEACHER 06/18/2020 I48.20 Chronic atrial fibrillation, uns pecified Protime 06/18/2020 Z51.81 Encounter for therapeutic drug l evel monitoring Lila Mendez, [facility] 06/18/2020 Z51.81 Encounter for therapeutic drug l evel monitoring Protime 06/18/2020 Z79.01 intermediate project manager (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 Lila Mendez, [employer] STUDENT EDUCATION TE[employer]ER 06/18/2020 Z79.01 alf (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 Protime 06/18/2020 Z23 Encounter for immunization Amanuel Jones M.D. 06/18/2020 Z23 Encounter for immunization Proti me 05/26/2020 L03.116 Cellulitis of left lower limb Ro kane Tobin JR, [place] 05/09/2020 I48.20 Chronic atrial fibrillation, uns pecified Lila Le Greenlee, EXCEPTIONAL STUDENT EDUCATION TEACHER 05/09/2020 I48.20 Chronic atrial fibrillation, uns pecified Protime 05/09/2020 Z51.81 Encounter for therapeutic drug l evel monitoring Lila Le Greenlee, EXCEPTIONAL STUDENT EDUCATION TEACHER 05/09/2020 Z51.81 Encounter for therapeutic drug l evel monitoring Protime 05/09/2020 Z79.01 intermediate project manager (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 Lila Le Greenlee, EXCEPTIONAL STUDENT EDUCATION TEACHER 04/08/2020 I48.20 Chronic atrial fibrillation, uns pecified Lila Le Greenlee, EXCEPTIONAL STUDENT EDUCATION TEACHER 04/08/2020 I48.20 Chronic atrial fibrillation, uns pecified Protime 04/08/2020 Z79.01 alf (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 Lila Marlene Greenlee, EXCEPTIONAL STUDENT EDUCATION TEACHER 04/08/2020 Z79.01 intermediate project manager (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 Protime 04/08/2020 Z51.81 Encounter for therapeutic drug l evel monitoring Lila Le Greenlee, EXCEPTIONAL STUDENT EDUCATION TEACHER 03/17/2020 I48.20 Chronic atrial fibrillation, uns pecified Lila Le Greenlee, [facility] 03/17/2020 I48.20 Chronic atrial fibrillation, uns pecified Protime 03/17/2020 Z51.81 Encounter for therapeutic drug l evel monitoring Lila Le Greenlee, EXCEPTIONAL STUDENT EDUCATION TEACHER 03/17/2020 Z51.81 Encounter for therapeutic drug l evel monitoring Protime 03/17/2020 Z79.01 intermediate project manager (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 ALLISON Lyons Plan of Treatment Future Appointment(s):* 09/24/2020 9:00 am - Amanuel Jones M.D. at [facility] * 10/06/2020 11:30 am - Dane at [facility] 06/27/2020 - Amanuel Jones M.D.* E11.65 Type 2 diabetes mellitus with hyperglycemia * Z13.89 Encounter for screening for other disorder * Functional Status Description No Information Available Mental Status Description No Information Available Referrals Refer to Reason for Referral Status Appt Date [facility] T[facility] LASTER CONSULT FOR CELLULITIS LT FOOT Sent 06/12/2020 [place] [address] [phone]
--- OUTSIDE RECORDS SUMMARY | 2020-11-24 10:43 | CCD | Continuity of Care Document ---
Author Author Ania Vela Organization Unknown Address [address] [place] [address] [address] [place] [address] Phone [phone] Care Team Providers Care Stem Roller Operator Name Role Phone Amanuel Jones MD AUTM [phone] Alber Agustin MD AUTM [phone] Hector Roblero III, MD AUTM Unavailable [facility] AUTM [phone] Problems Active Problems Provider Date Type 2 [...] M.D. 06/30/2018 Administration Of Flu Vaccine Inj mirna Jones M.D. 07/26/2017 Administration Of Flu Vaccine Inj monicaion Amanuel Jones M.D. 09/07/2016 Administration Of Flu Vaccine Inj monicaion Amanuel Jones M.D. 08/05/2015 Immunizations CPT Code Status Date Vaccine Lot # [id number] Given 06/18/2020 Influenza Vaccin e Quadrivalent Preser/Antibiotic Free Im Use [id number] 73945 Given 09/10/2019 Pneumovax 23 [id number] 16794 Given 09/10/2019 Adacel- Tetanus Diphtheria P ertussis (Age64 & Under) [id number] 00820 Given 07/31/2019 Influenza Vaccin e Quadrivalent Preser/Antibiotic Free Im Use 004814 84252 Given 06/30/2018 Influenza Virus Vaccine, Quadrivalent (Cciiv4), Derived From 8 Given 07/26/2017 Influenza Vaccin e Quadrivalent Preser/Antibiotic Free Im Use [id number] Q2037 Given 09/07/2016 Fluvirin Virus Vaccine 44939 01 Q2037 Given 08/05/2015 Fluvirin Virus Vaccine 23840 01 31445 Given 08/06/2014 Influenza Virus Vaccine 48055 Given 07/25/2013 Influenza Virus Vaccine 12300 Given 07/20/2012 Influenza Virus Vaccine 04028 Given 07/13/2011 Influenza Virus Vaccine 90916 Given 07/13/2011 Influenza Virus Vaccine 76918 Given 10/05/2010 Pneumovax 23 68728 Given 07/03/2010 Influenza Virus Vaccine 47748 Given 12/03/2002 Adacel- Tetanus Diphtheria P ertussis (Age64 & Under) Vital Signs Date Vital Result Comment 09/03/2020 11:19am Weight 222.00 lb 08/19/2020 11:01am Weight 223.00 lb Results Test Acquired Date Facility Test Result H/L Range Note Laboratory test finding 09/03/2020 [facility] 1.7 Laboratory test finding 08/19/2020 [facility] 1.4 Laboratory test finding 07/18/2020 [facility] 1.7 Microalbumin/Creatinine Urine 06/27/2020 [facility], Facility Mechanic: [place] [address] [phone] Microalbumin Urine 19.2 mg/L 1.3 - 20.0 Urine Creatinine 44.5 mg/dL 30.0 - 125.0 Microalb/Creat Ratio 43.1 ug/mg High 0.0 - 30.0 A1c 06/26/2020 [facility] Facility Mechanic: PALOMA Richards [address] [phone] Hba1c 7.9 % High <5.7 1 Est Avg Glucose 180 mg/dL High 60 - 110 Comprehensive Chem Profile 06/26/2020 [facility] Facility Mechanic: [place] [address] [phone] Glucose 136 mg/dL High 74 - 99 [...] 60 mL/min >60 3 Lipid Profile 06/26/2020 [facility] Facility Mechanic: [place] [address] [phone] Cholesterol 177 mg/dL 131 - 200 Triglycerides 99 mg/dL 30 - 150 HDL Cholesterol 51 mg/dL 35 - 60 LDL (Calculated) 106 CALC 50 - 159 Laboratory test finding 06/18/2020 [facility] 1.7 Laboratory test finding 05/09/2020 [facility] 1.6 Laboratory test finding 04/08/2020 [facility] 2.0 Laboratory test finding 03/17/2020 [facility] 2.0 Laboratory test finding 03/10/2020 [facility] 2.5 1 Lab Result Notes: Pre-Diabetes 5.7 - [...] LITTLE GFR LEFT ESRD GFR <15 ON 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 Procedures Date Code Description Status 05/22/2020 [id number] Diabetic Retinal Eye Exam Comple [facility] 03/27/2020 [id number] Diabetic Retinal Eye Exam Comple [facility] 10/12/2019 [id number] Mammogram Completed 10/09/2019 [id number] Diabetic Retinal Eye Exam Comple [facility] 06/20/2019 [id number] Colonoscopy Completed 12/14/2018 [id number] Diabetic Retinal Eye Exam [facility]ple [facility] 11/13/2018 [id number] Diabetic Retinal Eye Exam [facility]ple [facility] 09/29/2018 [id number] Mammogram Completed 04/07/2018 122454747 Diabetic Retinal Eye Exam [facility] 12/20/2017 785943777 Diabetic Retinal Eye Exam [facility]ple [facility] 12/14/2017 [id number] Diabetic Retinal Eye Exam [facility]ple [facility] 09/27/2017 [id number] Mammogram Completed 06/09/2017 [id number] Diabetic Retinal Eye Exam [facility] 04/07/2017 [id number] Diabetic Retinal Eye Exam [facility]ple [facility] 11/25/2016 [id number] Diabetic Retinal Eye Exam [facility]ple [facility] 09/23/2016 [id number] Mammogram Completed 02/01/2016 768779917 Diabetic Foot Exam Completed 01/21/2016 [id number] Diabetic Foot Exam Completed 01/20/2016 [id number] Diabetic Foot Exam Completed 10/14/2015 468298230 Diabetic Retinal Eye Exam [facility]ple [facility] 09/04/2015 [id number] Mammogram Completed 02/26/2015 [id number] Diabetic Retinal Eye Exam [facility]ple [facility] 08/03/2014 [id number] Mammogram Completed 08/25/2011 797508111 Bone Mineral Density Test Comple [facility] 09/10/2008 [id number] Colonoscopy Completed 2007 [id number] Bone Mineral Density Test Comple [facility] Medical Devices Description No Information Available Encounters Type Date Location Provider Dx Diagnosis Office Visit 05/26/2020 10:20a [facility] Yoav Tobin JR, [place] L03.116 Cellulitis of left lower [place] b Assessments Date Code Description Provider 09/03/2020 I48.20 Chronic atrial fibrillation, uns pecified Protime 09/03/2020 Z51.81 Encounter for therapeutic drug l evel monitoring Protime 08/19/2020 Z51.81 Encounter for therapeutic drug l evel monitoring ALLISON Lyons 08/19/2020 Z51.81 Encounter for therapeutic drug l evel monitoring Protime 08/19/2020 I48.20 Chronic atrial fibrillation, uns pecified ALLISON Lyons 08/19/2020 I48.20 Chronic atrial fibrillation, uns pecified Protime 08/19/2020 Z79.01 [place] (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 Lila Mendez PICKLE PUMPER 08/19/2020 Z79.01 shelter (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 Protime 07/18/2020 Z51.81 Encounter for therapeutic drug l evel monitoring Lila Mendez, [employer] 07/18/2020 Z51.81 Encounter for therapeutic drug l evel monitoring Protime 07/18/2020 I48.20 Chronic atrial fibrillation, uns pecified Lila Marlene Miner, P[employer]LE PU[employer]ER 07/18/2020 I48.20 Chronic atrial fibrillation, uns pecified Protime 07/18/2020 Z79.01 [place] (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 Lila Mendez, [employer] 07/18/2020 Z79.01 shelter (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 Protime 06/27/2020 [...] Chronic atrial fibrillation, uns pecified Lila Mendez, [employer] 06/18/2020 I48.20 Chronic atrial fibrillation, uns pecified Protime 06/18/2020 Z51.81 Encounter for therapeutic drug l evel monitoring Lila Mendez, [employer] 06/18/2020 Z51.81 Encounter for therapeutic drug l evel monitoring Protime 06/18/2020 Z79.01 shelter (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 Lila Mendez, [employer] 06/18/2020 Z79.01 [place] (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 Protime 06/18/2020 Z23 Encounter for immunization Amanuel Jones M.D. 06/18/2020 Z23 Encounter for immunization Proti me 05/26/2020 L03.116 Cellulitis of left lower limb Ro kane Tobin JR, [place] 05/09/2020 I48.20 Chronic atrial fibrillation, uns pecified Lila Le Miner, [employer] 05/09/2020 I48.20 Chronic atrial fibrillation, uns pecified Protime 05/09/2020 Z51.81 Encounter for therapeutic drug l evel monitoring Lila Le Miner, [employer] 05/09/2020 Z51.81 Encounter for therapeutic drug l evel monitoring Protime 05/09/2020 Z79.01 shelter (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 Lila Le Miner, [employer] 04/08/2020 I48.20 Chronic atrial fibrillation, uns pecified Lila Le Miner, [facility] 04/08/2020 I48.20 Chronic atrial fibrillation, uns pecified Protime 04/08/2020 Z79.01 [place] (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 Lila Le Miner, P[employer]ER 04/08/2020 Z79.01 shelter (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 Protime 04/08/2020 Z51.81 Encounter for therapeutic drug l evel monitoring Lila Le Miner, P[employer] PU[employer]ER 03/17/2020 I48.20 Chronic atrial fibrillation, uns pecified Lila Le Miner, [facility] 03/17/2020 I48.20 Chronic atrial fibrillation, uns pecified Protime 03/17/2020 Z51.81 Encounter for therapeutic drug l evel monitoring Lila Le Miner, [facility] 03/17/2020 Z51.81 Encounter for therapeutic drug l evel monitoring Protime 03/17/2020 Z79.01 [place] (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 Lila Le Miner, [employer]ER 03/10/2020 I48.20 Chronic atrial fibrillation, uns pecified Lila Le Miner, [employer]ER 03/10/2020 I48.20 Chronic atrial fibrillation, uns pecified Protime 03/10/2020 Z79.01 shelter (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 Lila Le Miner, [employer]ER 03/10/2020 Z79.01 [place] (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 Protime 03/10/2020 Z51.81 Encounter for therapeutic drug l evel monitoring Lila Mendez, PICKLE PUMPER Plan of Treatment Future Appointment(s):* 10/06/2020 11:30 am - Protime at [facility] * 09/12/2020 8:50 am - Lab Schedule at [facility] * 09/15/2020 3:00 pm - Amanuel Jones M.D. at [facility] 06/27/2020 - Amanuel Jones M.D.* E11.65 Type 2 diabetes mellitus with hyperglycemia * Z13.89 Encounter for screening for other disorder * Functional Status Description No Information Available Mental Status Description No Information Available Referrals Refer to Reason for Referral Status Appt Date [facility] [place] DEFENCE GUARD CONSULT FOR CELLULITIS LT FOOT Sent 06/12/2020 [address] [place] [address] [phone]
--- OUTSIDE RECORDS SUMMARY | 2020-11-24 10:43 | CCD | Continuity of Care Document ---
Author Author Ania Lyons Organization Unknown Address [address] [place] [address] [address] [place] [address] Phone [phone] Care Team Providers Care Automobile Mechanic Assistant Name Role Phone Amanuel Jones MD AUTM [phone] Alber Agustni MD AUTM [phone] Hector Roblero III, MD AUTM Unavailable [facility] AUTM Problems Active Problems Provider [...] CPT Code Status Date Vaccine Lot # [id number] Given 06/18/2020 Influenza Vaccin e Quadrivalent Preser/Antibiotic Free Im Use [id number] 90940 Given 09/10/2019 Pneumovax 23 [id number] 85023 Given 09/10/2019 Adacel- Tetanus Diphtheria P ertussis (Age64 & Under) [id number] 76159 Given 07/31/2019 Influenza Vaccin e Quadrivalent Preser/Antibiotic Free Im Use [id number] 25238 Given 06/30/2018 Influenza Virus Vaccine, Quadrivalent (Cciiv4), Derived From 6 Given 07/26/2017 Influenza Vaccin e Quadrivalent Preser/Antibiotic Free Im Use [id number] Q2037 Given 09/07/2016 Fluvirin Virus Vaccine 73021 01 Q2037 Given 08/05/2015 Fluvirin Virus Vaccine 46793 01 95769 Given 08/06/2014 Influenza Virus Vaccine 88044 Given 07/25/2013 Influenza Virus Vaccine 07216 Given 07/20/2012 Influenza Virus Vaccine 88958 Given 07/13/2011 Influenza Virus Vaccine 36616 Given 07/13/2011 Influenza Virus Vaccine 51865 Given 10/05/2010 Pneumovax 23 73693 Given 07/03/2010 Influenza Virus Vaccine 51645 Given 12/03/2002 Adacel- Tetanus Diphtheria P ertussis (Age64 & Under) Vital Signs Date Vital Result Comment 09/03/2020 11:19am Weight 222.00 lb 08/19/2020 11:01am Weight 223.00 lb Results Test Acquired Date Facility Test Result H/L Range Note Laboratory test finding 09/03/2020 [facility] 1.7 Laboratory test finding 08/19/2020 [facility] 1.4 Laboratory test finding 07/18/2020 [facility] 1.7 Microalbumin/Creatinine Urine 06/27/2020 [facility] Back Tender Pulp Drier: [place] [address] [phone] Microalbumin Urine 19.2 mg/L 1.3 - 20.0 Urine Creatinine 44.5 mg/dL 30.0 - 125.0 Microalb/Creat Ratio 43.1 ug/mg High 0.0 - 30.0 A1c 06/26/2020 [facility] Back Tender Pulp Drier: PALOMA Richards [address] [phone] Hba1c 7.9 % High <5.7 1 Est Avg Glucose 180 mg/dL High 60 - 110 Comprehensive Chem Profile 06/26/2020 [facility] Back Tender Pulp Drier: [place] [address] [phone] Glucose 136 mg/dL High 74 - 99 [...] 60 mL/min >60 3 Lipid Profile 06/26/2020 [facility] Back Tender Pulp Drier: [place] [address] [phone] Cholesterol 177 mg/dL 131 - 200 Triglycerides [...] LITTLE GFR LEFT ESRD GFR <15 ON COUNTY JUDGE Procedures Date Code Description Status 05/22/2020 201969226 Diabetic Retinal Eye Exam Comple meet 03/27/2020 376507401 Diabetic Retinal Eye Exam Comple meet 10/12/2019 04055554 Mammogram Completed 10/09/2019 532227704 Diabetic Retinal Eye Exam Comple meet 06/20/2019 92196377 Colonoscopy Completed 12/14/2018 037773406 Diabetic Retinal Eye Exam Comple [facility] 11/13/2018 722085281 Diabetic Retinal Eye Exam Comple [facility] 09/29/2018 20762991 Mammogram Completed 04/07/2018 995633107 Diabetic Retinal Eye Exam Comple meet 12/20/2017 062891963 Diabetic Retinal Eye Exam Comple [facility] 12/14/2017 946321729 Diabetic Retinal Eye Exam Comple [facility] 09/27/2017 74407249 Mammogram Completed 06/09/2017 308550025 Diabetic Retinal Eye Exam Comple meet 04/07/2017 491173176 Diabetic Retinal Eye Exam Comple [facility] 11/25/2016 297956909 Diabetic Retinal Eye Exam Comple [facility] 09/23/2016 73182965 Mammogram Completed 02/01/2016 173141349 Diabetic Foot Exam Completed 01/21/2016 741676489 Diabetic Foot Exam Completed 01/20/2016 948625096 Diabetic Foot Exam Completed 10/14/2015 062612111 Diabetic Retinal Eye Exam Comple [facility] 09/04/2015 48810344 Mammogram Completed 02/26/2015 028010980 Diabetic Retinal Eye Exam Comple [facility] 08/03/2014 40184164 Mammogram Completed 08/25/2011 437537737 Bone Mineral Density Test Comple [facility] 09/10/2008 47028167 Colonoscopy Completed 2007 185261922 Bone Mineral Density Test Comple [facility] Medical Devices Description No Information Available Encounters Type Date Location Provider Dx Diagnosis Office Visit 05/26/2020 10:20a [facility] Yoav Tobin JR, PA L03.116 Cellulitis of left lower [place] b Assessments Date Code Description Provider 09/03/2020 I48.20 Chronic atrial fibrillation, uns pecified Protime 09/03/2020 Z51.81 Encounter for therapeutic drug l evel monitoring Protime 08/19/2020 Z51.81 Encounter for therapeutic drug l evel monitoring GOLDY LyonsP 08/19/2020 Z51.81 Encounter for therapeutic drug l evel monitoring Protime 08/19/2020 I48.20 Chronic atrial fibrillation, uns pecified ALLISON Lyons 08/19/2020 I48.20 Chronic atrial fibrillation, uns pecified Protime 08/19/2020 Z79.01 shelter (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 Lila Mendez, DIE TRIPPER 08/19/2020 Z79.01 bark peeler (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 Protime 07/18/2020 Z51.81 Encounter for therapeutic drug l evel monitoring Lila Marlene Bledsoe, DIE TRIPPER 07/18/2020 Z51.81 Encounter for therapeutic drug l evel monitoring Protime 07/18/2020 I48.20 Chronic atrial fibrillation, uns pecified Lila Marlene Bledsoe, DIE TRIPPER 07/18/2020 I48.20 Chronic atrial fibrillation, uns pecified Protime 07/18/2020 Z79.01 shelter (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 Lila Rosario Bledsoe, DIE TRIPPER 07/18/2020 Z79.01 bark peeler (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 Protime 06/27/2020 [...] Chronic atrial fibrillation, uns pecified Lila Marlene Bledsoe, DIE TRIPPER 06/18/2020 I48.20 Chronic atrial fibrillation, uns pecified Protime 06/18/2020 Z51.81 Encounter for therapeutic drug l evel monitoring Lila Rosario Bledsoe, DIE TRIPPER 06/18/2020 Z51.81 Encounter for therapeutic drug l evel monitoring Protime 06/18/2020 Z79.01 bark peeler (current) use of antic oagulants Lila Rosario Bledsoe, DIE TRIPPER 06/18/2020 Z79.01 bark peeler (current) use of antic oagulants Protime 06/18/2020 Z23 Encounter for immunization Amanuel Jones M.D. 06/18/2020 Z23 Encounter for immunization Proti me 05/26/2020 L03.116 Cellulitis of left lower limb Ro kane Tobin JR, PA 05/09/2020 I48.20 Chronic atrial fibrillation, uns pecified Lila Le Bledsoe, DIE TRIPPER 05/09/2020 I48.20 Chronic atrial fibrillation, uns pecified Protime 05/09/2020 Z51.81 Encounter for therapeutic drug l evel monitoring Lila Le Bledsoe, DIE TRIPPER 05/09/2020 Z51.81 Encounter for therapeutic drug l evel monitoring Protime 05/09/2020 Z79.01 bark peeler (current) use of antic oagulants Lila Le Bledsoe, DIE TRIPPER 04/08/2020 I48.20 Chronic atrial fibrillation, uns pecified Lila Le Bledsoe, [facility] 04/08/2020 I48.20 Chronic atrial fibrillation, uns pecified Protime 04/08/2020 Z79.01 shelter (current) use of antic oagulants Lila Le Bledsoe, DIE TRIPPER 04/08/2020 Z79.01 shelter (current) use of antic oagulants Protime 04/08/2020 Z51.81 Encounter for therapeutic drug l evel monitoring Lila Le Bledsoe, DIE TRIPPER 03/17/2020 I48.20 Chronic atrial fibrillation, uns pecified Lila Le Bledsoe, [facility] 03/17/2020 I48.20 Chronic atrial fibrillation, uns pecified Protime 03/17/2020 Z51.81 Encounter for therapeutic drug l evel monitoring Lila Le Bledsoe, DIE TRIPPER 03/17/2020 Z51.81 Encounter for therapeutic drug l evel monitoring Protime 03/17/2020 Z79.01 bark peeler (current) use of antic oagulants Lila Le Bledsoe, DIE TRIPPER 03/10/2020 I48.20 Chronic atrial fibrillation, uns pecified Lila Le Bledsoe, DIE TRIPPER 03/10/2020 I48.20 Chronic atrial fibrillation, uns pecified Protime 03/10/2020 Z79.01 bark peeler (current) use of antic oagulants Lila Le Bledsoe, DIE TRIPPER 03/10/2020 Z79.01 shelter (current) use of antic oagulants Protime 03/10/2020 Z51.81 Encounter for therapeutic drug l evel monitoring ALLISON Lyons Plan of Treatment Future Appointment(s):* 10/06/2020 11:30 am - Protime at [facility] * 09/12/2020 8:50 am - Lab Schedule at [facility] * 09/15/2020 3:00 pm - Amanuel Jones M.D. at [facility] 06/27/2020 - Amanuel Jones M.D.* E11.65 Type 2 diabetes mellitus with hyperglycemia * Z13.89 Encounter for screening for other disorder * Functional Status Description No Information Available Mental Status Description No Information Available Referrals Refer to Reason for Referral Status Appt Date [facility] FURRIER DESIGNER CONSULT FOR CELLULITIS LT FOOT Sent 06/12/2020 [address] [place] [address] [phone]
--- OUTSIDE RECORDS SUMMARY | 2020-11-24 10:43 | CCD | Continuity of Care Document ---
Author Author Ania YING PAKinajlC Organization Unknown Address [address] [place] [address] Phone [phone] Care Team Providers Care Plant Care Worker Name Role Phone Amanuel Jones MD [facility] [place] [phone] Problems Active Problems Provider Date Essential hypertension Onset: 05/26/2016 Social History Type Date Description Comments Sex Unknown ETOH Use Denies alcohol use Tobacco Use Start: Unknown End: Unknown Patient is a former smoker 1 pack per day Allergies, Adverse Reactions, Alerts Active Allergies Reaction Severity Comments Date statin drugs 03/04/2020 Inactive Allergies Vasotec 05/26/2016 Zocor 05/26/2016 Lipitor 05/26/2016 Medications Active Medications SIG Qnty Indications Ordering Provide r Date Tizanidine HCL 4mg Tablets 1 by mouth every day at bedtime 30tabs M47.896 Fernando Guzman MD 08/03 Jantoven 1mg Tablets Unknown Atenolol 25mg Tablets 1 by mouth every day Unknown Hydrochlorothiazide 12.5mg Tablets 1 by mouth every day Unknown Vision Vitamins Tablets Unknown Jantoven 4mg Tablets Unknown Avapro 300mg Tablets Unknown Glipizide ER 5mg Tablets ER 24HR Unknown History Medications Voltaren 1% Gel apply to left shoulder three times a day 200gm M19.012 Fernando Guzman MD 020 - 03/03/2020 Immunizations Description No Information Available Vital Signs Date Vital Result Comment 03/13/2020 9:34am Body Temperature 97.2 F Height 67 inches 5'7" Weight 214.00 lb BMI (Body Mass Index) 33.5 kg/m2 03/04/2020 11:28am Body Temperature 97.0 F Height 64.5 inches 5'4.50" Weight 219.00 lb BMI (Body Mass Index) 37.0 kg/m2 Results Description No Information Available Procedures Date Code Description Status 08/15/2020 52253 X-Ray Spine Lumbosacral Complete Inc Bending Views Min Of 6 Completed 05/06/2020 Inject/Drain Joint/Bursa Major C ompleted 04/07/2020 Inject/Drain Joint/Bursa Major C ompleted 03/13/2020 49468 Physical Therapy Eval - Low Comp lexity Completed 03/13/2020 21538 X-Ray Hips Bilateral With Pelvis 3-4 Views Completed 03/04/2020 65943 X-Ray Shoulder Complete Complete d Medical Devices Description No Information Available Encounters Type Date Location Provider Dx Diagnosis Office Visit 08/15/2020 8:45a [facility] Demina Ying PA-C M4 7.896 Other spondylosis, lumbar region M51.36 Other intervertebral disc de generation, lumbar region Assessments Date Code Description Provider 08/15/2020 M47.896 Other spondylosis, lumbar region Demian Ying PA-C 08/15/2020 M51.36 Other intervertebral disc degene ration, lumbar region Demian Ying PA-C 05/06/2020 M70.62 Trochanteric bursitis, left hip Adali E. Doremus, JOSE ARMANDOC 05/06/2020 M70.61 Trochanteric bursitis, right hip Adali E. Doremus, JOSE ARMANDOC 04/07/2020 M70.62 Trochanteric bursitis, left hip Adali E. Doremus, BRANDI-C 04/07/2020 M70.61 Trochanteric bursitis, right hip Adali E. Doremus, PA-C 03/13/2020 S46.012D Strain of muscle(s) and tendon(s) of the rotator cuff of left shoulder, subsequent encounter Ricardo Daley, PT, DPT 03/13/2020 M25.552 Pain in left hip Shaq Copeland MD 03/13/2020 M25.551 Pain in right hip Shaq Copeland MD 03/04/2020 M19.012 Primary osteoarthritis, left kenrick marcos Guzman MD 03/04/2020 M75.42 Impingement syndrome of left kenrick marcos Fernando Guzman MD Plan of Treatment Future Appointment(s):* 09/19/2020 11:30 am - Demian Ying PA-C at [facility] 08/15/2020 - Demian Ying PA-C* M47.896 Other spondylosis, lumbar region * New Medication:* Tizanidine HCL 4 mg - 1 by mouth every day at bedtime * Follow up:* 6 weeks with [facility] for back recheck * M51.36 Other intervertebral disc degeneration, lumbar region Functional Status Description No Information Available Mental Status Description No Information Available Referrals Refer to Dr Reason for Referral Status Appt Date Fernando Guzman MD PT BASED ON MED. [facility] TO PT DEPT. NT Cre ated [facility] [address] [place] [id number] [phone]
--- OUTSIDE RECORDS SUMMARY | 2020-11-24 10:43 | CCD | Continuity of Care Document ---
Author Author Ania Vela Organization Unknown Address [address] [place] [address] [address] [place] [address] Phone [phone] Care Team Providers Care City Carrier Assistant Name Role Phone Amanuel Jones MD AUT[facility] [phone] Alber Agustin MD AUTM [phone] Hector Roblero III, MD AUTM Unavailable [facility] AUTM [phone] Problems Active Problems Provider Date Type 2 [...] 06/30/2018 Administration Of Flu Vaccine Inj mirna Joens M.D. 07/26/2017 Administration Of Flu Vaccine Inj monicaion Amanuel Jones M.D. 09/07/2016 Administration Of Flu Vaccine Inj monicaion Amanuel Jones M.D. 08/05/2015 Immunizations CPT Code Status Date Vaccine Lot # [id number] Given 06/18/2020 Influenza Vaccin e Quadrivalent Preser/Antibiotic Free Im Use 648239 83838 Given 09/10/2019 Pneumovax 23 [id number] 02537 Given 09/10/2019 Adacel- Tetanus Diphtheria P ertussis (Age64 & Under) [id number] 40771 Given 07/31/2019 Influenza Vaccin e Quadrivalent Preser/Antibiotic Free Im Use 614655 33590 Given 06/30/2018 Influenza Virus Vaccine, Quadrivalent (Cciiv4), Derived From 6 Given 07/26/2017 Influenza Vaccin e Quadrivalent Preser/Antibiotic Free Im Use [id number] Q2037 Given 09/07/2016 Fluvirin Virus Vaccine 65727 01 Q2037 Given 08/05/2015 Fluvirin Virus Vaccine 58220 01 08099 Given 08/06/2014 Influenza Virus Vaccine 49818 Given 07/25/2013 Influenza Virus Vaccine 15131 Given 07/20/2012 Influenza Virus Vaccine 90739 Given 07/13/2011 Influenza Virus Vaccine 66205 Given 07/13/2011 Influenza Virus Vaccine 54072 Given 10/05/2010 Pneumovax 23 57072 Given 07/03/2010 Influenza Virus Vaccine 60378 Given 12/03/2002 Adacel- Tetanus Diphtheria P ertussis (Age64 & Under) Vital Signs Date Vital Result Comment 09/03/2020 11:19am Weight 222.00 lb 08/19/2020 11:01am Weight 223.00 lb Results Test Acquired Date Facility Test Result H/L Range Note Laboratory test finding 09/03/2020 Wi-In[facility] Inr 1.7 Laboratory test finding 08/19/2020 [facility] 1.4 Laboratory test finding 07/18/2020 Wi-In[facility] Inr 1.7 Microalbumin/Creatinine Urine 06/27/2020 [facility], Mail Machine Operator: [place] [address] [phone] Microalbumin Urine 19.2 mg/L 1.3 - 20.0 Urine Creatinine 44.5 mg/dL 30.0 - 125.0 Microalb/Creat Ratio 43.1 ug/mg High 0.0 - 30.0 A1c 06/26/2020 [facility] Mail Machine Operator: PALOMA Richards [address] [phone] Hba1c 7.9 % High <5.7 1 Est Avg Glucose 180 mg/dL High 60 - 110 Comprehensive Chem Profile 06/26/2020 [facility] Mail Machine Operator: [place] [address] [phone] Glucose 136 mg/dL High 74 - 99 [...] 60 mL/min >60 3 Lipid Profile 06/26/2020 [facility] Mail Machine Operator: [place] [address] [phone] Cholesterol 177 mg/dL 131 - 200 Triglycerides [...] LITTLE GFR LEFT ESRD GFR <15 ON ASSISTANT FINANCE 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 Procedures Date Code Description Status 05/22/2020 982560925 Diabetic Retinal Eye Exam Comple [facility] 03/27/2020 448108058 Diabetic Retinal Eye Exam Comple [facility] 10/12/2019 14154795 Mammogram Completed 10/09/2019 712221789 Diabetic Retinal Eye Exam Comple [facility] 06/20/2019 67704997 Colonoscopy Completed 12/14/2018 396523474 Diabetic Retinal Eye Exam Comple meet 11/13/2018 829293618 Diabetic Retinal Eye Exam Comple meet 09/29/2018 51001355 Mammogram Completed 04/07/2018 872392641 Diabetic Retinal Eye Exam Comple meet 12/20/2017 016632476 Diabetic Retinal Eye Exam Comple meet 12/14/2017 792398354 Diabetic Retinal Eye Exam Comple meet 09/27/2017 64413669 Mammogram Completed 06/09/2017 750188568 Diabetic Retinal Eye Exam Comple meet 04/07/2017 259392710 Diabetic Retinal Eye Exam Comple meet 11/25/2016 589102811 Diabetic Retinal Eye Exam Comple meet 09/23/2016 12980412 Mammogram Completed 02/01/2016 943205388 Diabetic Foot Exam Completed 01/21/2016 454210265 Diabetic Foot Exam Completed 01/20/2016 436037784 Diabetic Foot Exam Completed 10/14/2015 148165731 Diabetic Retinal Eye Exam Comple meet 09/04/2015 42214079 Mammogram Completed 02/26/2015 888197018 Diabetic Retinal Eye Exam Comple meet 08/03/2014 07236249 Mammogram Completed 08/25/2011 550440977 Bone Mineral Density Test Comple [facility] 09/10/2008 76378734 Colonoscopy Completed 2007 727272543 Bone Mineral Density Test Comple [facility] Medical Devices Description No Information Available Encounters Type Date Location Provider Dx Diagnosis Office Visit 05/26/2020 10:20a [facility] Tob[facility], PA L03.116 Cellulitis of left lower [place] b Assessments Date Code Description Provider 09/03/2020 Z51.81 Encounter for therapeutic drug l evel monitoring ALLISON Lyons 09/03/2020 Z51.81 Encounter for therapeutic drug l evel monitoring Protime 09/03/2020 I48.20 Chronic atrial fibrillation, uns pecified ALLISON Lyons 09/03/2020 I48.20 Chronic atrial fibrillation, uns pecified Protime 09/03/2020 Z79.01 senior living (current) use of antic oagulants ALLISON Lyons 09/03/2020 Z79.01 senior living (current) use of antic oagulants Protime 08/19/2020 Z51.81 Encounter for therapeutic drug l evel monitoring ALLISON Lyons 08/19/2020 Z51.81 Encounter for therapeutic drug l evel monitoring Protime 08/19/2020 I48.20 Chronic atrial fibrillation, uns pecified Lila Mendez, [facility] 08/19/2020 I48.20 Chronic atrial fibrillation, uns pecified Protime 08/19/2020 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.01 assistant terminal manager (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 Lila Mendez, [facility] 08/19/2020 Z79.01 assistant terminal manager (current) use of antic oagulants Protime 07/18/2020 Z51.81 Encounter for therapeutic drug l evel monitoring Lila Mendez, [facility] 07/18/2020 Z51.81 Encounter for therapeutic drug l evel monitoring Protime 07/18/2020 I48.20 Chronic atrial fibrillation, uns pecified Lila Mendez, [facility] 07/18/2020 I48.20 Chronic atrial fibrillation, uns pecified Protime 07/18/2020 Z79.01 senior living (current) use of antic oagulants Lila Mendez, [facility] 07/18/2020 Z79.01 senior living (current) use of antic oagulants Protime 06/27/2020 [...] Chronic atrial fibrillation, uns pecified Lila Mendez, [facility] 06/18/2020 I48.20 Chronic atrial fibrillation, uns pecified Protime 06/18/2020 Z51.81 Encounter for therapeutic drug l evel monitoring Lila Mendez, [facility] 06/18/2020 Z51.81 Encounter for therapeutic drug l evel monitoring Protime 06/18/2020 Z79.01 senior living (current) use of antic oagulants Lila Le [place], [facility] 06/18/2020 Z79.01 assistant terminal manager (current) use of antic oagulants Protime 06/18/2020 Z23 Encounter for immunization Amanuel Jones M.D. 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) use of antic oagulants Lila Le [place], [facility] 04/08/2020 I48.20 Chronic atrial fibrillation, uns pecified Lila Le [place], [facility] 04/08/2020 I48.20 Chronic atrial fibrillation, uns pecified Protime 04/08/2020 Z79.01 senior living (current) use of antic oagulants Lila Le [place], [facility] 04/08/2020 Z79.01 assistant terminal manager (current) use of antic oagulants Protime 04/08/2020 Z51.81 Encounter for therapeutic drug l evel monitoring Lila Le [place], [facility] 03/17/2020 I48.20 Chronic atrial fibrillation, uns pecified Lila Le [place], [facility] 03/17/2020 I48.20 Chronic atrial fibrillation, uns pecified Protime 03/17/2020 Z51.81 Encounter for therapeutic drug l evel monitoring Lila Le [place], [facility] 03/17/2020 Z51.81 Encounter for therapeutic drug l evel monitoring Protime 03/17/2020 Z79.01 senior living (current) use of antic oagulants ALLISON Lyons Plan of Treatment Future Appointment(s):* 10/06/2020 11:30 am - Protime at [facility] * 09/12/2020 8:50 am - Lab Schedule at [facility] * 09/15/2020 3:00 pm - Amanuel Jones M.D. at [facility] 06/27/2020 - Amanuel Jones M.D.* E11.65 Type 2 diabetes mellitus with hyperglycemia * Z13.89 Encounter for screening for other disorder * Functional Status Description No Information Available Mental Status Description No Information Available Referrals Refer to Dr Reason for Referral Status Appt Date [facility] ZINC MINER BLASTING CONSULT FOR CELLULITIS LT FOOT Sent 06/12/2020 [address] [place] [address] [phone]
--- OUTSIDE RECORDS SUMMARY | 2020-11-24 10:44 | CCD ---
Author Author [facility] Address Unknown Phone Unavailable Care Team Providers Care Senior Animator Name Role Phone Dena Kraft, Shahram Campo MD, FACS Unavailable Unavailable Fernandes Kraft, Shahram Campo MD, FACS Unavailable Unavailable Fernandes Kraft, Shahram Campo MD, FACS Unavailable Unavailable Fernandes Kraft, Shahram Campo MD, FACS Unavailable Unavailable Fernandes Kraft, Shahram Campo MD, FACS Unavailable Unavailable Fernandes Kraft, Shahram Campo MD, FACS Unavailable Unavailable Fernandes Kraft, Shahram Campo MD, FACS Unavailable Unavailable Fernandes Kraft, Shahram Campo MD, FACS Unavailable Unavailable Fernandes Kraft, Shahram Campo MD, FACS Unavailable Unavailable Fernandes Kraft, Shahram Campo MD, FACS Unavailable Unavailable Fernandes Kraft, Shahram Campo MD, FACS Unavailable Unavailable Fernandes Kraft, Shahram Campo MD, FACS Unavailable Unavailable Fernandes Kraft, Shahram Campo MD, FACS Unavailable Unavailable Fernandes Kraft, Shahram Campo MD, FACS Unavailable Unavailable Fernandes Kraft, Shahram Campo MD, FACS Unavailable Unavailable Fernandes Kraft, Shahram Campo MD, FACS Unavailable Unavailable Fernandes Kraft, Shahram Campo MD, FACS Unavailable Unavailable Fernandes Kraft, Shahram Campo MD, FACS Unavailable Unavailable Fernandes Kraft, Shahram Campo MD, FACS Unavailable Unavailable Fernandes Kraft, Shahram Campo MD, FACS Unavailable Unavailable Fernandes Kraft, Shahram Campo MD, FACS Unavailable Unavailable Fernandes Kraft, Shahram Campo MD, FACS Unavailable Unavailable Fernandes Kraft, Shahram Campo MD, FACS Unavailable Unavailable Fernandes Kraft, Shahram Campo MD, FACS Unavailable Unavailable Fernandes Kraft, Shahram Campo MD, FACS Unavailable Unavailable Fernandes Kraft, Shahram Campo MD, FACS Unavailable Unavailable Fernandes Kraft, Shahram Campo MD, FACS Unavailable Unavailable Dena Kraft, Shahram Campo MD, FACS Unavailable Unavailable Dena Kratf, Shahram Campo MD, FACS Unavailable Unavailable Dena Kraft, Shahram Campo MD, FACS Unavailable Unavailable Dena Kraft, Shahram Campo MD, FACS Unavailable Unavailable Dena Kraft, Shahram Campo MD, FACS Unavailable Unavailable Dena Kraft, Shahram Campo MD, FACS Unavailable Unavailable Dena Kraft, Shahram Campo MD, FACS Unavailable Unavailable Anders Jones MD Unavailable Unavailable Anders Jones MD Unavailable Unavailable Anders Jones MD Unavailable Unavailable Anders Jones MD Unavailable Unavailable Anders Jones MD Unavailable Unavailable Anders Jones MD Unavailable Unavailable Anders Jones MD Unavailable Unavailable Anders Jones MD Unavailable Unavailable Anders Jones MD Unavailable Unavailable Anders Jones MD Unavailable Unavailable Anders Jones MD Unavailable Unavailable Anders Jones MD Unavailable Unavailable Anders Jones MD Unavailable Unavailable Anders Jones MD Unavailable Unavailable Anders Jones MD Unavailable Unavailable Anders Jones MD Unavailable Unavailable Anders Jones MD Unavailable Unavailable Anders Jones MD Unavailable Unavailable Anders Jones MD Unavailable Unavailable Anders Jones MD Unavailable Unavailable Anders Jones MD Unavailable Unavailable Anders Jones MD Unavailable Unavailable Anders Jones MD Unavailable Unavailable Anders Jones MD Unavailable Unavailable Anders Jonse MD Unavailable Unavailable Anders Jones MD Unavailable Unavailable Anders Jones MD Unavailable Unavailable Anders Jones MD Unavailable Unavailable Anders Jones MD Unavailable Unavailable Anders Jones MD Unavailable Unavailable Anders Jones MD Unavailable Unavailable Anders Jones MD Unavailable Unavailable Anders Jones MD Unavailable Unavailable Anders Jones MD Unavailable Unavailable Anders Jones MD Unavailable Unavailable Anders Jones MD Unavailable Unavailable Anders Jones MD Unavailable Unavailable Anders Jones MD Unavailable Unavailable Anders Jones MD Unavailable Unavailable Anders Jones MD Unavailable Unavailable Anders Jones MD Unavailable Unavailable Anders Jones MD Unavailable Unavailable Anders Jones MD Unavailable Unavailable Anders Jones MD Unavailable Unavailable Anders Jones MD Unavailable Unavailable Anedrs Jones MD Unavailable Unavailable Anders Jones MD Unavailable Unavailable Anders Jones MD Unavailable Unavailable Anders Jones MD Unavailable Unavailable Anders Jones MD Unavailable Unavailable Anders Jones MD Unavailable Unavailable Anders Jones MD Unavailable Unavailable Anders Jones MD Unavailable Unavailable Anders Jones MD Unavailable Unavailable Anders Jones MD Unavailable Unavailable Anders Jones MD Unavailable Unavailable Anders Jones MD Unavailable Unavailable Anders Jones MD Unavailable Unavailable Anders Jones MD Unavailable Unavailable Anders Jones MD Unavailable Unavailable Anders Jones MD Unavailable Unavailable Anders Jones MD Unavailable Unavailable Anders Jones MD Unavailable Unavailable Anders Jones MD Unavailable Unavailable Anders Jones MD Unavailable Unavailable Anders Jones MD Unavailable Unavailable Anders Jones MD Unavailable Unavailable Anders Jones MD Unavailable Unavailable Anders Jones MD Unavailable Unavailable Anders Jones MD Unavailable Unavailable Anders Jones MD Unavailable Unavailable Anders Jones MD Unavailable Unavailable Anders Jones MD Unavailable Unavailable Anders Jones MD Unavailable Unavailable PICKERAL JR, J CARMEN PA-C Unavailable Unavailable PICKERAL JR, J CARMEN PA-C Unavailable Unavailable PICKERAL JR, J CARMEN PA-C Unavailable Unavailable PICKERAL JR, J CARMEN PA-C Unavailable Unavailable PICKERAL JR, J CARMEN PA-C Unavailable Unavailable PICKERAL JR, J CARMEN PA-C Unavailable Unavailable PICKERAL JR, J CARMEN PA-C Unavailable Unavailable PICKERAL JR, J CARMEN PA-C Unavailable Unavailable PICKERAL JR, J CARMEN PA-C Unavailable Unavailable PICKERAL JR, J CARMEN PA-C Unavailable Unavailable PICKERAL JR, J CARMEN PA-C Unavailable Unavailable PICKERAL JR, J CARMEN PA-C Unavailable Unavailable PICKERAL JR, J CARMEN PA-C Unavailable Unavailable PICKERAL JR, J CARMEN PA-C Unavailable Unavailable PICKERAL JR, J CARMEN PA-C Unavailable Unavailable PICKERAL JR, J CARMEN PA-C Unavailable Unavailable PICKERAL JR, J CARMEN PA-C Unavailable Unavailable PICKERAL JR, J CARMEN PA-C Unavailable Unavailable PICKERAL JR, J CARMEN PA-C Unavailable Unavailable PICKERAL JR, J CARMEN PA-C Unavailable Unavailable PICKERAL JR, J CARMEN PA-C Unavailable Unavailable Larry Ying PA Unavailable Unavailable Larry Ying PA Unavailable Unavailable Larry Ying PA Unavailable Unavailable Larry Ying PA Unavailable Unavailable Larry Ying PA Unavailable Unavailable Larry Ying PA Unavailable Unavailable Larry Ying PA Unavailable Unavailable Larry Ying PA Unavailable Unavailable Larry Ying PA Unavailable Unavailable Larry Ying PA Unavailable Unavailable Ying, M Barratt PA Unavailable Unavailable Ying, M Barratt PA Unavailable Unavailable Ying, M Barratt PA Unavailable Unavailable Ying, M Barratt PA Unavailable Unavailable Ying, M Barratt PA Unavailable Unavailable Ying, M Barratt PA Unavailable Unavailable Ying, M Barratt PA Unavailable Unavailable Ying, M Barratt PA Unavailable Unavailable Ying, M Barratt PA Unavailable Unavailable Ying, M Barratt PA Unavailable Unavailable Ying, M Barratt PA Unavailable Unavailable Ying, M Barratt PA Unavailable Unavailable Ying, M Barratt PA Unavailable Unavailable Ying, M Barratt PA Unavailable Unavailable Ying, M Barratt PA Unavailable Unavailable Ying, M Barratt PA Unavailable Unavailable Ying, M Barratt PA Unavailable Unavailable Anders Jones MD Unavailable Unavailable Anders Jones MD Unavailable Unavailable Anders Jones MD Unavailable Unavailable Anders Jones MD Unavailable Unavailable Anders Jones MD Unavailable Unavailable Anders Jones MD Unavailable Unavailable Anders Jones MD Unavailable Unavailable Anders Jones MD Unavailable Unavailable Anders Jones MD Unavailable Unavailable Anders Jones MD Unavailable Unavailable Anders Jones MD Unavailable Unavailable Anders Jones MD Unavailable Unavailable Anders Jones MD Unavailable Unavailable Anders Jones MD Unavailable Unavailable Anders Jones MD Unavailable Unavailable Anders Jones MD Unavailable Unavailable Anders Jones MD Unavailable Unavailable Anders Jones MD Unavailable Unavailable Anders Jones MD Unavailable Unavailable Anders Jones MD Unavailable Unavailable Anders Jones MD Unavailable Unavailable Anders Jones MD Unavailable Unavailable Anders Jones MD Unavailable Unavailable Anders Jones MD Unavailable Unavailable Anders Jones MD Unavailable Unavailable Anders Jones MD Unavailable Unavailable Anders Jones MD Unavailable Unavailable Anders Jones MD Unavailable Unavailable Anders Jones MD Unavailable Unavailable Anders Jones MD Unavailable Unavailable Anders Jones MD Unavailable Unavailable Anders Jones MD Unavailable Unavailable Anders Jones MD Unavailable Unavailable Anders Jones MD Unavailable Unavailable Anders Jones MD Unavailable Unavailable Anders Jones MD Unavailable Unavailable Anders Jones MD Unavailable Unavailable Anders Jones MD Unavailable Unavailable Anders Jones MD Unavailable Unavailable Anders Jones MD Unavailable Unavailable Anders Jones MD Unavailable Unavailable Anders Jones MD Unavailable Unavailable Anders Jones MD Unavailable Unavailable Anders Jones MD Unavailable Unavailable Anders Jones MD Unavailable Unavailable Anders Jones MD Unavailable Unavailable Anders Jones MD Unavailable Unavailable Anders Jones MD Unavailable Unavailable Anders oJnes MD Unavailable Unavailable Anders Jones MD Unavailable Unavailable Anders Jones MD Unavailable Unavailable Anders Jones MD Unavailable Unavailable Anders Jones MD Unavailable Unavailable WhiteAnders MD Unavailable Unavailable White F Amanuel MEDINA Unavailable Unavailable White F Amanuel MEDINA Unavailable Unavailable Robert F Amanuel MEDINA Unavailable Unavailable Robert F Amanuel MEDINA Unavailable Unavailable Robert F Amanuel MEDINA Unavailable Unavailable Robert F Amanuel MEDINA Unavailable Unavailable White F Amanuel MEDINA Unavailable Unavailable White F Amanuel MEDINA Unavailable Unavailable White F Amanuel MEDINA Unavailable Unavailable White F Amanuel MEDINA Unavailable Unavailable White F Amanuel MEDINA Unavailable Unavailable White F Amanuel MEDINA Unavailable Unavailable Robert F Amanuel MEDINA Unavailable Unavailable Robert F Amanuel MEDINA Unavailable Unavailable Robert F Amanuel MEDINA Unavailable Unavailable Robert F Amanuel MEDINA Unavailable Unavailable Robert F Amanuel MEDINA Unavailable Unavailable Anders Jones MD Unavailable Unavailable Robert F Amanuel MEDINA Unavailable Unavailable Robert F Amanuel MEDINA Unavailable Unavailable Fish, Esteban New MD Unavailable Unavailable Fish, Esteban New MD Unavailable Unavailable Fish, Esteban New MD Unavailable Unavailable Fish, Esteban New MD Unavailable Unavailable Fish, Esteban New MD Unavailable Unavailable Fish, Esteban New MD Unavailable Unavailable Fish, Esteban New MD Unavailable Unavailable Fish, Esteban New MD Unavailable Unavailable Fish, Esteban New MD Unavailable Unavailable Fish, Esteban New MD Unavailable Unavailable Fish, Esteban New MD Unavailable Unavailable Fish, Esteban New MD Unavailable Unavailable Fish, Esteban New MD Unavailable Unavailable Fish, Esteban New MD Unavailable Unavailable Fish, Esteban New MD Unavailable Unavailable Fish, Esteban New MD Unavailable Unavailable Fish, Esteban New MD Unavailable Unavailable Fish, Esteban New MD Unavailable Unavailable Fish, Esteban New MD Unavailable Unavailable Fish, Esteban New MD Unavailable Unavailable Fish, Esteban New MD Unavailable Unavailable Fish, Esteban New MD Unavailable Unavailable Fish, Etseban New MD Unavailable Unavailable Fish, Esteban New MD Unavailable Unavailable Fish, Esteban New MD Unavailable Unavailable Fish, Esteban New MD Unavailable Unavailable Fish, Esteban New MD Unavailable Unavailable Fish, Esteban New MD Unavailable Unavailable Fish, Esteban Nwe MD Unavailable Unavailable Fish, Esteban New MD Unavailable Unavailable Fish, Esteban New MD Unavailable Unavailable Fish, Esteban New MD Unavailable Unavailable Fish, Esteban New MD Unavailable Unavailable Fish, Esteban New MD Unavailable Unavailable Fish, B Shaq MEDINA Unavailable Unavailable Fish, B Shaq MEDINA Unavailable Unavailable Fish, B Shaq MEDINA Unavailable Unavailable Fish, B Shaq MEDINA Unavailable Unavailable Fish, B Shaq MEDINA Unavailable Unavailable Fish, B Shaq MEDINA Unavailable Unavailable Fish, B Shaq MEDINA Unavailable Unavailable Fish, B Shaq MEDINA Unavailable Unavailable Fish, B Shaq MEDINA Unavailable Unavailable Fish, B Shaq MEDINA Unavailable Unavailable Fish, B Shaq MEDINA Unavailable Unavailable Fish, B Shaq MEDINA Unavailable Unavailable Fish, B Shaq MEDINA Unavailable Unavailable Fish, B Shaq MEDINA Unavailable Unavailable Fish, B Shaq MEDINA Unavailable Unavailable Fish, B Shaq MEDINA Unavailable Unavailable Fish, B Shaq MEDINA Unavailable Unavailable Fish, B Shaq MEDINA Unavailable Unavailable Fish, B Shaq MEDINA Unavailable Unavailable KHADRA INFANTE MD Unavailable Unavailab KHADRA Mcbride MD Unavailable Unavailab KHADRA Mcbride MD Unavailable Unavailab KHADRA Mcbride MD Unavailable Unavailab KHADRA Mcbride MD Unavailable Unavailab KHADRA Mcbride MD Unavailable Unavailab KHADRA Mcbride MD Unavailable Unavailab KHADRA Mcbride MD Unavailable Unavailab KHADRA Mcbride MD Unavailable Unavailab KHADRA Mcbride MD Unavailable Unavailab KHADRA Mcbride MD Unavailable Unavailab KHADRA Mcbride MD Unavailable Unavailab KHADRA Mcbride MD Unavailable Unavailab KHADRA Mcbride MD Unavailable Unavailab KHADRA Mcbride MD Unavailable Unavailab KHADRA Mcbride MD Unavailable Unavailab KHADRA Mcbride MD Unavailable Unavailab KHADRA Mcbride MD Unavailable Unavailab KHADRA Mcbride MD Unavailable Unavailab KHADRA Mcbride MD Unavailable Unavailab KHADRA Mcbride MD Unavailable Unavailab KHADRA Mcbride MD Unavailable Unavailab KHADRA Mcbride MD Unavailable Unavailab KHADRA Mcbride MD Unavailable Unavailab KHADRA Mcbride MD Unavailable Unavailab KHADRA Mcbride MD Unavailable Unavailab KHADRA Mcbride MD Unavailable Unavailab KHADRA Mcbride MD Unavailable Unavailab KHADRA Mcbride MD Unavailable Unavailab KHADRA Mcbride MD Unavailable Unavailab KHADRA Mcbride MD Unavailable Unavailab KHADRA Mcbride MD Unavailable Unavailab LUIS F McbrideRAMEMIR MEDINA Unavailable Unavailab KHADRA Mcbride MD Unavailable Unavailab KHADRA Mcbride MD Unavailable Unavailab KHADRA Mcbride MD Unavailable Unavailab KHADRA Mcbride MD Unavailable Unavailab HKADRA Mcbride MD Unavailable Unavailab KHADRA Mcbride MD Unavailable Unavailab KHADRA Mcbride MD Unavailable Unavailab KHADRA Mcbride MD Unavailable Unavailab KHADRA Mcbride MD Unavailable Unavailab KHADRA Mcbride MD Unavailable Unavailab KHADRA Mcbride MD Unavailable Unavailab KHADRA Mcbride MD Unavailable Unavailab KHADRA Mcbride MD Unavailable Unavailab KHADRA Mcbride MD Unavailable Unavailab KHADRA Mcbride MD Unavailable Unavailab KHADRA Mcbride MD Unavailable Unavailab KHADRA Mcbride MD Unavailable Unavailab KHADRA Mcbride MD Unavailable Unavailab KHADRA Mcbride MD Unavailable Unavailab KHADRA Mcbride MD Unavailable Unavailab KHADRA Mcbride MD Unavailable Unavailab KHADRA Mcbride MD Unavailable Unavailab KHADRA Mcbride MD Unavailable Unavailab le NARESH, MIRTHAUBRAMANIAM Unavailable Unavailab le NARESH, BALASUBRAMANIAM MD Unavailable Unavailab le NARESH, BALASUBRAMANIAM MD Unavailable Unavailab le NARESH, BALASUBRAMANIAM MD Unavailable Unavailab le NARESH, BALASUBRAMANIAM MD Unavailable Unavailab le NARESH, BALASUBRAMANIAM MD Unavailable Unavailab le NARESH, BALASUBRAMANIAM MD Unavailable Unavailab le NARESH, BALASUBRAMANIAM MD Unavailable Unavailab le NARESH, BALASUBRAMANIAM MD Unavailable Unavailab le NARESH, BALASUBRAMANIAM MD Unavailable Unavailab le NARESH, BALASUBRAMANIAM MD Unavailable Unavailab le NARESH, BALASUBRAMANIAM MD Unavailable Unavailab le NARESH, BALASUBRAMANIAM MD Unavailable Unavailab le NARESH, BALASUBRAMANIAM MD Unavailable Unavailab le NARESH, BALASUBRAMANIAM MD Unavailable Unavailab le Re-disclosure Warning The records that you are about to access may contain information from federally-assisted alcohol or drug abuse programs. If such information is present, then the following federally mandated warning applies: This information has been disclosed to you from records protected by federal confidentiality rules (42 CFR part 2). The federal rules prohibit you from making any further disclosure of this information unless further disclosure is expressly permitted by the written consent of the person to whom it pertains or as otherwise permitted by 42 CFR part 2. A general authorization for the release of medical or other information is NOT sufficient for this purpose. The Federal rules restrict any use of the information to criminally investigate or prosecute any alcohol or drug abuse patient.The records that you are about to access may contain highly sensitive health information, the redisclosure of which is protected by Article 27-F of the [facility] Public Health law. If you continue you may have access to information: Regarding HIV / AIDS; Provided by facilities licensed or operated by the [facility] Office of Mental Health; or Provided by the [facility] Office for People With Developmental Disabilities. If such information is present, then the following [facility] mandated warning applies: This information has been disclosed to you from confidential records which are protected by state law. State law prohibits you from making any further disclosure of this information without the specific written consent of the person to whom it pertains, or as otherwise permitted by law. Any unauthorized further disclosure in violation of state law may result in a fine or retirement sentence or both. A general authorization for the release of medical or other information is NOT sufficient authorization for further disc losure. Allergies and Adverse Reactions Type Description Substance Reaction Status Data Source(s ) Allergy to substance No Known Allergies No known allergies (situation ) DIEUDONNE (Alber Kraft MD [facility]) Adverse Reaction Lipitor atorvastatin [facility] ([facility]) Adverse Reaction Zocor Simvastatin [facility] ([facility]) Adverse Reaction Vasotec Enalapril [facility] ( [facility]) Family History Family Member Name Family Member Gender Family Member Status Date o f Status Description Data Source(s) Unknown Male Problem [facility] ([facility], ) Unknown Male Problem [facility] ([facility] () Unknown Female Problem [facility] ([facility]) Unknown Female Problem [facility] ([facility]) Encounters Encounter Providers Location Date Indications Data Source(s ) Outpatient Attender: Amanuel Francisco 09/24 08:00:00 AM EST [facility] ([facility] ) Outpatient Attender: Demian PAZ Physical Therapy 07:45:00 AM EST [facility] ([facility] ) Unknown [address] [facility] [facility] [address] 08/14/2020 12:00:00 AM EST eCW1 ([facility]) Outpatient [address] [facility] [facility] [place] [address] 07/21/2020 12:00:00 AM EDT eCW1 ([facility]) Outpatient Attender: KHADRA TALLEY MDConsultant: KHADRA INFANTE MD [id number] 07/09/2020 12:57:54 PM EDT - 07/09/2020 12:08:44 PM EDT [facility] Outpatient Attender: CARMEN Francisco 0 05/26/2020 10:20:00 AM EDT [facility] ([facility] ) Outpatient<td ID="encounterTypeDescripti onID0">6 Month Follow-Up</td><td>Alber Agustin MD, RASHARD</td><td>Alber Agustin MD [facility]</td><td>05/22/2020</td><td>7:45AM</td><td>8:51AM</td><td><content ID="encounterDiagnosisID0-0">History of Nicotine Dependence</content>, <content ID="encounterDiagnosisID0-1">Essential Hypertension</content>, <content ID="encounterDiagnosisID0-2">Cataract Senile Cortical</content>, <content ID="encounterDiagnosisID0-3">Cataract Senile Nuclear</content>, <content ID="encounterDiagnosisID0-4">Taking Medication For Diabetes Long-term Use of Oral Hypoglycemics</content>, <content ID="encounterDiagnosisID0-5">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</content>, <content ID="encounterDiagnosisID0-6">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</content>, <content ID="encounterDiagnosisID0-7">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</content>, <content ID="encounterDiagnosisID0-8">Corneal Dystrophy Anterior Both Eyes</content></td> Attender: Alber Kraft MD, RASHARD Agustin MD [facility] 05/22/2020 07:45:00 AM EDT - 05/22/2020 08:51:00 AM EDT Macular Degen Exudative Left Eye with Ac tive Choroidal Neovascularization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Corneal Dystrophy Anterior Both Eyes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Taking Medication For Diabetes Long-term Use of Oral HypoglycemicsEssential HypertensionHistory of Nicotine DependenceCataract Senile CorticalCataract Senile Nuclear DIEUDONNE (Alber Kraft MD [facility]) Macular 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 W/ Diab 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 Taking Medication For Diabetes Long-term Use of Oral Hypoglycemics Essential Hypertension History of Nicotine Dependence Cataract Senile Cortical Cataract Senile Nuclear Outpatient Referrer: Shaq Copeland MD 04/01/2020 12:29:00 PM EDT [facility] Outpatient Referrer: Shaq Copeland MD 04/01/2020 12:11:00 PM EDT [facility] Outpatient Referrer: Shaq Copeland MD 03/27/2020 12:59:00 PM EDT [facility] Outpatient Referrer: Shaq Copeland MD 03/25/2020 10:23:00 AM EDT [facility] Outpatient Referrer: Shaq Copeland MD 03/25/2020 09:18:00 AM EDT [facility] Outpatient Referrer: Shaq Copeland MD 03/25/2020 09:15:00 AM EDT [facility] Outpatient Referrer: Shaq Copeland MD 03/25/2020 09:15:00 AM EDT [facility] Outpatient Referrer: Shaq Copeland MD 03/25/2020 09:13:00 AM EDT [facility] Outpatient Referrer: Shaq Copelnad MD 03/14/2020 12:10:00 PM EDT [facility] [address] [place] [address] 12/18/2019 12:00:00 AM EDT eCW1 ([facility]) [facility] [address] [facility] [place] [address] 11/20/2019 12:00:00 AM EST eCW1 ([facility]) Outpatient Referrer: Amanuel Jones MD 10/11/2019 08:06:00 AM EST [facility] Outpatient<td ID="encounterTypeDescripti onID1">6 Month Follow-Up with OCT Retina</td><td>Alber Agustin MD, FACS</td><td>Alber Agustin MD [facility]</td><td>10/09/2019</td><td>9:15AM</td><td>10:54AM</td><td><content ID="encounterDiagnosisID1-0">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</content>, <content ID="encounterDiagnosisID1-1"> Cataract Senile Cortical</content>, <content ID="encounterDiagnosisID1- 2">Cataract Senile Nuclear</content>, <content ID="encounterDiagnosisID1-3">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</content>, <content ID="encounterDiagnosisID1-4">Essential Hypertension</content>, <content ID="encounterDiagnosisID1-5">History of Nicotine Dependence</content>, <content ID="encounterDiagnosisID1-6">Taking Medication For Diabetes Long-term Use of Oral Hypoglycemics</content></td> Attender: Alber Kraft MD, FACS Alber Agustin MD [facility] 10/09/2019 09:15:00 AM EST - 10/09/2019 10:54:00 AM ES T 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Taking Medication For Diabetes Long-term Use of Oral Hypoglycemics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Taking Medication For Diabetes Long-term Use of Oral Hypoglycemics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History of Nicotine DependenceEssential HypertensionHistory of Nicotine DependenceEssential HypertensionCataract Senile CorticalCataract Senile CorticalCataract Senile NuclearCataract Senile Nuclear DIEUDONNE (Alber Kraft MD [facility]) Macular Degen Exudative Bilateral with I nactive Choroidal Neovascularization Macular Degen Exudative Bilateral with I nactive Choroidal Neovascularization Taking Medication For Diabetes Long-term Use of Oral Hypoglycemics Type 2 Diab W/ Diab 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 Taking Medication For Diabetes Long-term Use of Oral Hypoglycemics Type 2 Diab W/ 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 Essential Hypertension History of Nicotine Dependence Essential Hypertension Cataract Senile Cortical Cataract Senile Cortical Cataract Senile Nuclear Cataract Senile Nuclear Outpatient Referrer: Amanuel Jones MD 10/05/2019 08:41:00 AM EST [facility] Outpatient Attender: Amanuel Francisco 10/02 10:00:00 AM EST [facility] ([facility] ) Immunizations Vaccine Date Status Description Data Source(s) COVID-19 VACCINE, MRNA, [id number], LNP-S (PFIZER)/PF 11/22/19 21 12:00:00 AM EST completed [facility] COVID-19 VACCINE, MRNA, [id number], LNP-S (PFIZER)/PF 11/01/19 21 12:00:00 AM EST completed [facility] Influenza, injectable, MDCK, preservative free, jerod valent 06/18/2020 11:02:00 AM EDT completed [facility] ([facility]) Medications Medication Brand Name Start Date Product Form Dose Route Admi nistrative Instructions Pharmacy Instructions Status Indications Reaction Description Data Source(s) Cephalexin 750 MG Oral Capsule Cephalexin 11/19/2020 12:00:00 AM EST ORAL active MED[facility] ([facility]) tizanidine 4 MG Oral Tablet Tizanidine HCL 08/15/2020 12:00:00 AM EST ORAL active [facility] ([facility]) ciclopirox 7.7 MG/ML Topical Cream Ciclopirox Olamine 0.77 % Ciclopirox Olamine 0.77 % 07/21/2020 12:00:00 AM EDT 1.0 {application} active Ciclopirox Olamine 0.77 % eCW1 ([facility]) ciclopirox 7.7 MG/ML Topical Cream Ciclopirox Olamine 0.77 % Ciclopirox Olamine 0.77 % 07/21/2020 12:00:00 AM EDT 1.0 {application} active Ciclopirox Olamine 0.77 % eCW1 ([facility]) ciclopirox 7.7 MG/ML Topical Cream Ciclopirox Olamine 06/27 12:00:00 AM EDT active [facility] ([facility]) Administration Of Flu Vaccine 06/18/2020 12:00:00 AM EDT completed [facility] Medication administered onsite Cephalexin 500 MG Oral Capsule Cephalexin 05/26/2020 12:00:00 AM EDT ORAL completed [facility] ([facility]) Diclofenac Sodium 0.01 MG/MG Topical Gel Voltaren 03/04/2020 12 :00:00 AM EDT completed [facility] ([facility]) Ozempic (0.25 Or 0.5 MG/Dose) Ozempic (0.25 Or 0.5 MG/Dose) 11/08/2019 12:00:00 AM EST craig MARADIAGA ([facility]) Insurance Providers Payer name Policy type / Coverage type Policy ID Covered libertarian ID Covered libertarian's relationship to davalos Policy Davalos Plan Information MEDICARE [id number] SP [id number] AARP HE[employer] CARE OPTIONS [id number] SP [id number] MEDICARE C [id number] S [id number] [id number] AAR O [id number] S [id number] MEDICARE [id number] Milena [id number] F67 [facility] [id number] Milena [id number] Medicare Part B [facility] Other 0 Se lf 0 Medicare Part B of [facility] Other 0 Se lf 0 MEDICARE [id number] SP [id number] F67 AARP HEALTH CARE OPTIONS [id number] SP [id number] MEDICARE [id number] SP [id number] MEDICARE [id number] SP [id number] S67 MEDICARE [id number] SP [id number] A Aarp Medigap Part B [id number] Self [id number] [place] Medicare Primary [id number] Self [id number] Aarp Medigap Part B [id number] Self [id number] [place] Medicare Primary [id number] Self [id number] AARP HEALTH CARE OPTIONS [id number] SP [id number] [facility]ar Healthcare Opt Medigap Part B [id number] Self [id number] Medicare [facility] Govt Servic Medicare Primary [id number] Self [id number] Aarp Medigap Part B [id number] Self [id number] [place] Medicare Primary [id number] Self [id number] Aarp Insurance Medigap Part B [id number] Self [id number] Medicare Medicare Primary [id number] Self [id number] Aarp Medigap Part B [id number] Self [id number] [place] Medicare Primary [id number] Self [id number] Aarp Healthcare Opt Medigap Part B [id number] Self [id number] Medicare [place] Govt Servic Medicare Primary [id number] Self [id number] MEDICARE C [id number] S [id number] A Aarp Insurance Medigap Part B [id number] Self [id number] Medicare Medicare Primary [id number] Self [id number] Aarp Insurance Medigap Part B [id number] Self [id number] Medicare Medicare Primary [id number] Self [id number] Aarp Insurance Medigap Part B [id number] Self [id number] Medicare Medicare Primary [id number] Self [id number] Aarp Healthcare Opt Medigap Part B [id number] Self [id number] Medicare [place] Govt Servic Medicare Primary [id number] Self [id number] Aarp Healthcare Opt Medigap Part B [id number] Self [id number] Medicare [place] Govt Servic Medicare Primary [id number] Self [id number] MEDICARE [id number] Milena [id number] A AARP HEALTH CARE OPTIONS [id number] SP [id number] Aarp Insurance Medigap Part B [id number] Self [id number] Medicare Medicare Primary [id number] Self [id number] Aarp Healthcare Opt Medigap Part B [id number] 11 Self [id number] Medicare [place] Govt Servic Medicare Primary [id number] Self [id number] AARP HEALTH CARE OPTIONS [id number] SP [id number] Aarp Healthcare Opt Medigap Part B Plan N Self Plan N Medicare [place] Govt Servic Medicare Primary Self BS [place] Medigap Part B Self Aarp Healthcare Options Medigap Part B Self Medicare [facility] Medicare Primary Self AARP HEALTH CARE OPTIONS [id number] SP [id number] MEDICARE [id number] SP [id number] A [id number] A Problems, Conditions, and Diagnoses Code Display Name Description Problem Type Effective Dates Data Source(s) 745850705 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) 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 Problem 12:00:00 AM EDT DIEUDONNE (Alber Kraft MD [facility]) [id number] 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 Problem 05/22/2020 12:00:00 AM EDT DIEUDONNE (Alber Kraft MD [facility]) E11.65 Hyperglycemia due to type 2 diabetes bernadette litus Type 2 diabetes mellitus with hyperglycemia Problem 11/20/2019 12:00:00 AM EST eCW1 ([facility]) E11.65 Hyperglycemia due to type 2 diabetes bernadette litus Type 2 diabetes mellitus with hyperglycemia Problem 11/20/2019 12:00:00 AM EST eCW1 ([facility]) Surgeries/Procedures Procedure Description Date Indications Data Source(s) Mammogram 11/06/2020 12:00:00 AM EST M EDENT ([facility]) Mammogram 10/28/2020 12:00:00 AM EST M EDENT ([facility]) Bone Mineral Density Test 10/28/2020 12:00:00 AM EST MED[facility] ([facility]) X-Ray Spine Lumbosacral Complete Inc Bending Views Min Of 6 08/15/2020 12:00:00 AM EST [facility] ([facility] ) Diabetic Retinal Eye Exam 05/22/2020 12:00:00 AM EDT MED[facility] ([facility]) Intermediate Eye Exam Established Patient Intermediate Eye Exam Established Patient 05/22/2020 12:00:00 AM EDT DIEUDONNE (Herbie Kraft MD [facility]) ARTHROCENTESIS ASPIR&/INJECTION MAJOR JT/BURSA 12:00:00 AM EDT MED[facility] ([facility] ) ARTHROCENTESIS ASPIR&/INJECTION MAJOR JT/BURSA 12:00:00 AM EDT MED[facility] ([facility] ) Diabetic Retinal Eye Exam 03/27/2020 12:00:00 AM EDT MED[facility] ([facility]) X-Ray Hips Bilateral With Pelvis 3-4 Views 03/13/2020 12:00:00 AM EDT [facility] ([facility] ) Physical Therapy Eval - Low Complexity 03/13/2020 12:0 0:00 AM EDT [facility] ([facility] ) RADEX SHOULDER COMPLETE MINIMUM 2 VIEWS 03/04/2020 12: 00:00 AM EDT [facility] ([facility] ) MEDICAL NUTRITION INDIV IN 11/20/2019 12:00:00 AM EST eCW1 ([facility]) Mammogram 10/12/2019 12:00:00 AM EST M EDENT ([facility]) Diabetic Retinal Eye Exam 10/09/2019 12:00:00 AM EST MED[facility] ([facility]) Comprehensive eye exam established patient (Signi/Sep Eval. & Man.) Comprehensive eye exam established patient (Signi/Sep Eval. & Man.) 10/09/2019 12:00:00 AM EST DIEUDONNE (Alber Kraft MD [facility]) Scodi Retina, with interpretation and re port (WAIVER OF LIABILITY ON FILE (ABN)) Scodi Retina, with interpretation and re port (WAIVER OF LIABILITY ON FILE (ABN)) 10/09/2019 12:00:00 AM EST DIEUDONNE (Herbie Kraft MD [facility]) No reported medical history : Atrial Fibrillation No r eported medical history : Atrial Fibrillation 10/09/2019 12:00:00 AM EST DIEUDONNE (Herbie Kraft MD [facility]) History of the retina was abnormal 05/02/2019 History o f the retina was abnormal 05/02/2019 10/09/2019 12:00:00 AM EST DIEUDONNE (Herbie Kraft MD [facility]) History of diabetes mellitus Type 2: Si nce 2003 A1C: Good with Dr. Jones FBS: Doesnt check History of diabetes mellitus Type 2: Si nce 2002 A1C: Good with Dr. Jones FBS: Doesnt check 10/09/2019 12:00:00 AM EST GREE NWSTANLEY (Alber Kraft MD [facility]) COMPUTERIZED OPHTHALMIC IMAGING RETINA Scodi Retina, w ith interpretation and report (GA) 10/09/2019 12:00:00 AM EST DIEUDONNE (Herbie Kraft MD [facility]) Comprehensive eye exam established patient (25) Compre hensive eye exam established patient (25) 10/09/2019 12:00:00 AM EST DIEUDONNE (Alber Kraft MD [facility]) Results ID Date Data Source [id number] 11/19/2020 02:00:00 PM EST MEDENT ([facility]) Name Value Range Interpretation Code Description Data Candice rce(s) Supporting Document(s) C reactive protein [Mass/volume] in Serum or Plasma by High sensitivity method Laboratory test result [facility] ID Date Data Source [id number] 11/19/2020 02:00:00 PM EST MED[facility] ([facility]) Name Value Range Interpretation Code Description Data Candice rce(s) Supporting Document(s) Erythrocyte sedimentation rate by Westergren method 55 mm/hr 0-15 [facility] ID Date Data Source [id number] 11/19/2020 02:00:00 PM EST MED[facility] ([facility]) Name Value Range Interpretation Code Description Data Candice rce(s) Supporting Document(s) Erythrocytes [#/volume] in Blood by Automated count 3.90 x10*6/UL 4.2 0-6.30 [facility]) Leukocytes [#/volume] in Blood by Automated count 10.8 x10*3/UL 4.1-1 0.9 [facility] ([facility]) Hemoglobin [Mass/volume] in Blood 11.1 g/dL 12.0-18.0 [facility] ([facility]) NOTE: RESULT VERIFIED. Hematocrit [Volume Fraction] of Blood by Automated count 32.7 % 3 7.0-51.0 [facility] ([facility]) MCV 83.8 fL 80.0-97.0 [facility] ([facility]) MCH 28.4 pg 26.0-32.0 [facility]) MCHC 33.9 g/dL 31.0-38.0 [facility] Platelets [#/volume] in Blood by Automated count 345 x10*3/UL 140-440 [facility] Erythrocyte distribution width [Ratio] by Automated count 14.6 % 11.6-13.7 [facility] ([facility]) MPV 8.8 FL 7.8-11.0 [facility] ([facility]) Lymph % 9.2 % 10.0-58.5 [facility] ([facility]) Lymph # 1.0 x10*3/UL 0.6-4.1 [facility] ([facility]) Mid % 3.0 % 1.7-9.3 [facility] ([facility]) Neut % 87.8 % 37.0-92.0 [facility] ([facility]) Neut # 9.5 x10*3/UL 2.0-7.8 [facility] ([facility]) Mid # 0.3 x10*3/UL 0.1-0.6 [facility] ([facility]) ID Date Data Source [id number] 11/06/2020 12:00:00 AM EST [facility] Amanuel Jones MD Patient Name: APOORVA HARKINS[age] [facility] Date of : 1945[address] [facility]: [facility] [id number] Fax: [id number] EXAM: MAMMO UNI DIAGNOSTIC INCLUD CAD LTCLINICAL INFORMATION: Left breast call back.COMPARISON: 10/28/2020 as well as other prior exams.Magnification views of the upper outer quadrant of the left breast areperformed. There is a cluster of increasing microcalcifications which havea pleomorphic appearance. They are located posteriorly in the upper outerquadrant of the left breast. Stereotactic biopsy is recommended.IMPRESSION:ACR 4 suspicious. Focal cluster of pleomorphic microcalcifications upperouter quadrant left breast posteriorly. Recommend stereotactic biopsy.QUIRINO Wheeler/slmThank you for referring APOORVA HARKINS to our office. Electronically Signed - FLORIDALMA JEROME MD 11/07/20 18:05 Name Value Range Interpretation Code Description Data Candice rce(s) Supporting Document(s) ID Date Data Source [id number] 10/28/2020 12:00:00 AM EST [facility] Amanuel Jones MD Patient Name: APOORVA HARKINS[age] [facility] Date of : 1945[address] [facility] [place] [id number]#: Fax: [id number] EXAM: MAMMO SCREENING WITH CADCLINICAL INFORMATION: Screening.Based on the personal and family history information your patient suppliedat the time of imaging, her lifetime risk of breast cancer estimated by theTyrer-Cuzick model is 5.5%. Given that this patient has less than 20% TCrisk score, no further medical management is currently recommended at thistime.Digital screening (2D) mammography was performed bilaterally in the CC andMLO projections. Additionally, breast tomosynthesis (3D mammography) wasperformed bilaterally in the CC and MLO projections. Today's exam wascompared to the prior exam(s).By history, the patient has no complaints of a palpable breast abnormalityor other significant breast complaints.The patient states that a clinical breast exam was not performed.The breasts are unchanged in size and shape.In the left breast upper aspect, there is a grouping of calcificationswhich have been present for many years and consistently either only seen orbest seen on the left MLO view upper aspect posteriorly. Some years thesecalcifications were superimposed upon benign arterial calcifications. Theymay have increased in their number in variability in size, shape, andradiodensity compared to priors. There are other groups of calcificationsscattered widely throughout both breasts but those calcifications have astable appearance. No one of those groups having undergone any perceptiblechange. There are no casandra-soft tissue densities or spiculated masses ineither breast. There is no internal architectural distortion. There is noskin thickening or nipple retraction.The Volpara volumetric breast density category is A, the breasts are almostentirely fatty.IMPRESSION:BI-RADS Category 0 - Incomplete: Needs additional imaging evaluation.Seen in the left breast upper aspect on the MLO view and outer aspect onolder prior exams, there is a grouping of calcifications as describedabove. I would recommend an exaggerated CC lateral view of the left breastin conjunction with diagnostic digital magnified spot compression views ofthe calcifications in that projection and MLO projection for furtherevaluation.Our office will attempt to contact the patient for additional imaging.This mammogram was read with the assistance of [employer], an FDAapproved computer aided detection system for mammography.Negative x-ray reports should not delay surgical consultation if a dominantor clinically suspicious mass is present.Not all breast cancers can be identified by mammography. Therefore, werecommend that you continue to perform regular breast self-examination andphysical examination and then promptly contact your physician of anyconcerns or changes.Adenosis and dense breasts may obscure an underlying neoplasm.BECKY Morfin/Cheikh you for referring APOORVA HARKINS to our office. Electronically Signed - RODERICK WYNN DO 10/28/20 15:17 Name Value Range Interpretation Code Description Data Candice rce(s) Supporting Document(s) ID Date Data Source [id number] 10/28/2020 08:55:00 AM EST MED[facility] ([facility]) Name Value Range Interpretation Code Description Data Candice rce(s) Supporting Document(s) Dexa/Bone Density Laboratory test result [facility] ([facility]) 3D Bi-Lateral Mammogram Laboratory test result [facility] ([facility]) ID Date Data Source [id number] 10/23/2020 10:46:00 AM EST [facility] ([facility]) Name Value Range Interpretation Code Description Data Candice rce(s) Supporting Document(s) Prothrombin Time 21.9 s 12.5-14.3 [facility] Inr 1.87 [facility] THERAPUTIC HUMAN INR VALUES INDICATIONS NORMAL RANGES PROPHYLAXIS/TREATMENT OF: VENOUS THROMBOSIS 2.0-3.0 PULMONARY EMBOLISM 2.0-3.0 PREVENTION OF SYSTEMIC EMBOLISM FROM: TISSUE HEART VALVES 2.0-3.0 ACUTE MYOCARDIAL INFARCTION 2.0-3.0 VALVULAR HEART DISEASE 2.0-3.0 ATRIAL FIBRILLATION 2.0-3.0 MECHANICAL VALVES(HIGH RISK) 2.5-3.5 RECURRENT MYOCARDIAL INFARCTION 2.5-3.5 ID Date Data Source [id number] 10/07/2020 10:56:00 AM EST [facility] ([facility]) Name Value Range Interpretation Code Description Data Candice rce(s) Supporting Document(s) INR in Platelet poor plasma by Coagulation assay 2.4 [facility]) ID Date Data Source [id number] 09/12/2020 09:44:00 AM EST [facility] ([facility]) Name Value Range Interpretation Code Description Data Candice rce(s) Supporting Document(s) Thyrotropin [Units/volume] in Serum or Plasma by Detec tion limit <= 0.05 mIU/L 1.88 uIU/mL 0.36-3.74 [facility] ([facility] ) ID Date Data Source [id number] 09/12/2020 09:44:00 AM EST [facility]) Name Value Range Interpretation Code Description Data Candice rce(s) Supporting Document(s) Urea nitrogen [Mass/volume] in Serum or Plasma 24 mg/dL 7-18 [facility] ([facility]) Glucose [Mass/volume] in Serum or Plasma 241 mg/dL 74-99 [facility] ([facility]) 100-125 mg/dL PRE-DIABETES/FASTING >126 mg/dL DIABETES/FASTING Potassium [Moles/volume] in Serum or Plasma 4.6 meq/L 3.5-5.1 [facility]) Creatinine 0.9 mg/dL 0.6-1.3 [facility]) Sodium [Moles/volume] in Serum or Plasma 141 meq/L 136-145 [facility] ([facility]) Calcium [Mass/volume] in Serum or Plasma 9.6 mg/dL 8.5-10.1 [facility] Chloride [Moles/volume] in Serum or Plasma 102 meq/L 98-107 [facility] ([facility]) Carbon dioxide, total [Moles/volume] in Serum or Plasma 29 meq/L 21 -32 [facility] Alkaline phosphatase isoenzyme [Units/volume] in Serum or Pl asma 103 mg/dL 46-116 [facility] ([facility]) Total Bilirubin 0.6 mg/dL 0.2-1.0 [facility] ([facility]) Aspartate aminotransferase [Enzymatic activity/volume] in Serum or Plasma 17 U/L 15-37 [facility] ([facility] ) Albumin [Mass/volume] in Serum or Plasma 3.5 g/dL 3.4-5.0 [facility] ([facility]) Alanine aminotransferase [Enzymatic activity/volume] in Seru m or Plasma 26 U/L 12-78 [facility] ([facility]) Proteinase 3 Ab [Units/volume] in Serum 7.2 g/dL 6.4-8.2 [facility] Glomerular filtration rate/1.73 sq M pre dicted among non-blacks [Volume Rate/Area] in Serum or Plasma by Creatinine-based formula (MDRD) Laboratory test result [facility] Glomerular filtration rate/1.73 sq M pre dicted among blacks [Volume Rate/Area] in Serum or Plasma by Creatinine-based formula (MDRD) Laboratory test result [facility] <content>CHRONIC KIDNEY DISEASE STAGING PER NK[facility]</content>
<content></content>
<content>STAGE I & II GFR >= 60 NORMAL TO MILDLY DECREASED</content>
<content>STAGE III GFR 30-59 MODERATELY DECREASED</content>
<content>STAGE IV GFR 15-29 SEVERELY DECREASED</content>
<content>STAGE V GFR <15 VERY LITTLE GFR LEFT</content>
<content>ESRD GFR <15 ON CDL BULK DRIVER</content>
<content></content> A/G Ratio 0.95 CALC 1.00-1.90 [facility] ([facility]) ID Date Data Source [id number] 09/12/2020 09:44:00 AM EST [facility] Name Value Range Interpretation Code Description Data Candice rce(s) Supporting Document(s) Hemoglobin A1c/Hemoglobin.total in Blood 7.4 % [facility] ([facility]) Lab Result Notes: Pre-Diabetes 5.7 - 6.4 % Diabetes = or > 6.5% Glucose mean value [Mass/volume] in Blood Estimated fr om glycated hemoglobin 166 mg/dL 60-110 [facility] ID Date Data Source [id number] 09/12/2020 09:44:00 AM EST [facility] Name Value Range Interpretation Code Description Data Candice rce(s) Supporting Document(s) Hemoglobin [Mass/volume] in Blood 12.0 g/dL 12.0-18.0 [facility] Leukocytes [#/volume] in Blood by Automated count 9.1 x10*3/UL 4.1-10 .9 [facility] Erythrocytes [#/volume] in Blood by Automated count 4.04 x10*6/UL 4.2 0-6.30 [facility] Hematocrit [Volume Fraction] of Blood by Automated count 35.2 % 3 7.0-51.0 [facility] MCV 87.0 fL 80.0-97.0 [facility]) MCH 29.8 pg 26.0-32.0 [facility]) Erythrocyte distribution width [Ratio] by Automated count 14.0 % 11.6-13.7 [facility] Platelets [#/volume] in Blood by Automated count 393 x10*3/UL 140-440 [facility] MCHC 34.2 g/dL 31.0-38.0 [facility]) Lymph % 12.1 % 10.0-58.5 [facility] ([facility]) MPV 8.7 FL 7.8-11.0 [facility] ([facility]) Mid % 3.1 % 1.7-9.3 [facility] ([facility]) Lymph # 1.1 x10*3/UL 0.6-4.1 [facility] ([facility]) Neut % 84.8 % 37.0-92.0 [facility]) Mid # 0.3 x10*3/UL 0.1-0.6 [facility] ([facility]) Neut # 7.7 x10*3/UL 2.0-7.8 [facility] ([facility]) ID Date Data Source [id number] 09/03/2020 11:19:00 AM EST [facility] ([facility]) Name Value Range Interpretation Code Description Data Candice rce(s) Supporting Document(s) INR in Platelet poor plasma by Coagulation assay 1.7 [facility] ([facility]) ID Date Data Source [id number] 08/19/2020 11:00:00 AM EST [facility] ([facility]) Name Value Range Interpretation Code Description Data Candice rce(s) Supporting Document(s) INR in Platelet poor plasma by Coagulation assay 1.4 [facility] ([facility]) ID Date Data Source [id number] 07/18/2020 11:27:00 AM EDT [facility] ([facility]) Name Value Range Interpretation Code Description Data Candice rce(s) Supporting Document(s) INR in Platelet poor plasma by Coagulation assay 1.7 [facility] ([facility]) ID Date Data Source [id number] 07/09/2020 12:57:54 [facility]FORMATIONPatient [facility] Name Date of Age Gend*PT [id number] Apoorva Harkins 1945 75 years F ---PT Location Admission Date/Time Visit ID Attending Provider --- --- --- --- EPI ID CSN Admitting Provider [id number] ---Subjective:Patient presents to the clinic for a follow up of thyroid nodules. Currentlyasymptomatic has had no further problem other than some weight gainThe ultrasound was report was reviewed shows no changes and is a stable goiterObjective:General: alert, appears stated age and cooperativeSkin: No erythema, drainageLungs CTAHeart: RRRAbdomen: soft, bowel sounds active, non- tenderAssessment:Stable thyroid nodulesPlan:1. Continue any current medications.2. Wound care discussed.3. Continue conservative management follow- up with an ultrasound in 1 year4. Follow up: 1 year.5. All questions were answered in full6. Patient will contact office with any questions or concerns* Name Value Range Interpretation Code Description Data Candice rce(s) Supporting Document(s) ID Date Data Source [id number] 06/27/2020 11:00:00 AM EDT [facility] ([facility]) Name Value Range Interpretation Code Description Data Candice rce(s) Supporting Document(s) Microalbumin Urine 19.2 mg/L 1.3-20.0 [facility] ([facility]) Urine Creatinine 44.5 mg/dL 30.0-125.0 [facility] ([facility]) Microalb/Creat Ratio 43.1 ug/mg 0.0-30.0 [facility] ( [facility]) ID Date Data Source [id number] 06/26/2020 08:15:00 AM EDT [facility] ([facility]) Name Value Range Interpretation Code Description Data Candice rce(s) Supporting Document(s) Cholesterol [Mass/volume] in Serum or Plasma 177 mg/dL 131-200 [facility] ([facility]) Triglyceride [Mass/volume] in Serum or Plasma 99 mg/dL 30-150 [facility] ([facility]) Cholesterol in HDL [Mass/volume] in Serum or Plasma 51 mg/dL 35-60 [facility] ([facility]) Cholesterol in LDL [Mass/volume] in Serum or Plasma by calcu lation 106 CALC 50-159 [facility] ([facility]) ID Date Data Source [id number] 06/26/2020 08:15:00 AM EDT [facility] ([facility]) Name Value Range Interpretation Code Description Data Candice rce(s) Supporting Document(s) Glucose [Mass/volume] in Serum or Plasma 136 mg/dL 74-99 [facility] ([facility]) 100-125 mg/dL PRE-DIABETES/FASTING >126 mg/dL DIABETES/FASTING Creatinine 0.9 mg/dL 0.6-1.3 [facility] ([facility]) Urea nitrogen [Mass/volume] in Serum or Plasma 19 mg/dL 7-18 [facility] ([facility]) Potassium [Moles/volume] in Serum or Plasma 3.9 meq/L 3.5-5.1 [facility] ([facility]) Sodium [Moles/volume] in Serum or Plasma 137 meq/L 136-145 [facility] ([facility]) Chloride [Moles/volume] in Serum or Plasma 100 meq/L 98-107 [facility] ([facility]) Carbon dioxide, total [Moles/volume] in Serum or Plasma 28 meq/L 21 -32 [facility] ([facility]) Calcium [Mass/volume] in Serum or Plasma 9.0 mg/dL 8.5-10.1 [facility] ([facility]) Alkaline phosphatase isoenzyme [Units/volume] in Serum or Pl asma 93 mg/dL 46-116 [facility] ([facility]) Total Bilirubin 0.5 mg/dL 0.2-1.0 [facility] ([facility]) Albumin [Mass/volume] in Serum or Plasma 3.4 g/dL 3.4-5.0 [facility] ([facility]) Alanine aminotransferase [Enzymatic activity/volume] in Seru m or Plasma 22 U/L 12-78 [facility] ([facility]) Aspartate aminotransferase [Enzymatic activity/volume] in Serum or Plasma 15 U/L 15-37 [facility] ([facility] ) A/G Ratio 0.89 CALC 1.00-1.90 [facility]) Proteinase 3 Ab [Units/volume] in Serum 7.2 g/dL 6.4-8.2 [facility] ([facility]) Glomerular filtration rate/1.73 sq M pre dicted among non-blacks [Volume Rate/Area] in Serum or Plasma by Creatinine-based formula (MDRD) Laboratory [facility] Glomerular filtration rate/1.73 sq M pre dicted among blacks [Volume Rate/Area] in Serum or Plasma by Creatinine-based formula (MDRD) Laboratory test result [facility] <content>CHRONIC KIDNEY DISEASE STAGING PER NKF</content>
<content></content>
<content>STAGE I & II GFR >= 60 NORMAL TO MILDLY DECREASED</content>
<content>STAGE III GFR 30-59 MODERATELY DECREASED</content>
<content>STAGE IV GFR 15-29 SEVERELY DECREASED</content>
<content>STAGE V GFR <15 VERY LITTLE GFR LEFT</content>
<content>ESRD GFR <15 ON CDL BULK DRIVER</content>
<content></content> ID Date Data Source [id number] 06/26/2020 08:15:00 AM EDT [facility] ([facility]) Name Value Range Interpretation Code Description Data Candice rce(s) Supporting Document(s) Glucose mean value [Mass/volume] in Blood Estimated fr om glycated hemoglobin 180 mg/dL 60-110 [facility] Hemoglobin A1c/Hemoglobin.total in Blood 7.9 % [facility] ([facility]) Lab Result Notes: Pre-Diabetes 5.7 - 6.4 % Diabetes = or > 6.5% ID Date Data Source [id number] 06/26/2020 08:15:00 AM EDT [facility] ([facility]) Name Value Range Interpretation Code Description Data Candice rce(s) Supporting Document(s) Hemoglobin A1c/Hemoglobin.total in Blood Laboratory test result [facility] ID Date Data Source [id number] 06/18/2020 10:59:00 AM EDT [facility]) Name Value Range Interpretation Code Description Data Candice rce(s) Supporting Document(s) INR in Platelet poor plasma by Coagulation assay 1.7 [facility] ID Date Data Source [id number] 05/09/2020 11:37:00 AM EDT [facility] ([facility]) Name Value Range Interpretation Code Description Data Candice rce(s) Supporting Document(s) INR in Platelet poor plasma by Coagulation assay 1.6 [facility]) ID Date Data Source [id number] 04/08/2020 01:11:00 PM EDT [facility] ([facility]) Name Value Range Interpretation Code Description Data Candice rce(s) Supporting Document(s) INR in Platelet poor plasma by Coagulation assay 2.0 [facility] ([facility]) ID Date Data Source [id number] 04/01/2020 12:00:00 AM EDT [facility] Shaq Copeland MD Patient Name: ASHLEY [id number] [facility] 1945[facility] [place] [address] Date of Exam: 04/01/2020PH#: Fax: [phone] EXAM: MRI HIP RIGHT WITHOUT CONTRASTCLINICAL INFORMATION: Right hip pain. Evaluate for AVN and bursitis.TECHNIQUE:3T multiplanar MRI imaging of the right hip was obtained using varioussequences.Comparison MRI left hip 03/25/2020 with whole pelvic images and right hipxray 04/24/2009.FINDINGS:The whole pelvic marrow sequences again show lower lumbar spine portions ofsacrum and iliac bones into the acetabuli without marrow edema or fracture. There is some edema and hyperintense T2 signal acetabular roof on the leftperipherally but not the right. Marginal osteophytes are noted at bothacetabular margins. There is a trace joint effusion in the right hipslightly larger in the left similar to last week's exam. Some bilateraltrochanteric tendinobursitis about the greater trochanters on both sideswith trace fluid in the bursa on the right side. I do not see signalabnormality in the femoral head to suggest bone bruise, fracture or AVN.No focal lesion in the femoral head, neck, intertrochanteric region orsubtrochanteric proximal femoral shaft. Slight hip joint space narrowingis seen on that right side without any significant edema in the acetabularroof or either column. The intrinsic and extrinsic pelvic, hip, lowerabdominal and buttocks musculature visible was symmetric and grosslynormal. There is some diverticulosis evident. Bladder partially filledwithout focal lesion. There is no inguinal hernia or pathologic sizedadenopathy. There does appear to be a paralabral sulcus and someirregularity of the superior labrum centrally suggesting a labral tear maybe present.IMPRESSION:1. Bilateral trochanteric tendinobursitis greater right than left.2. Bilateral small effusions, left greater than right.3. Bilateral hip joint space narrowing, left greater than right.4. Marginal osteophytes acetabular roof, left greater than right.5. Paralabral sulcus and irregular linear signal within the superiorlabrum centrally suggesting a labral tear. No AVN or focal lesion in thehip.Accredited by the [employer] in MR.Carlito Khan, ENRIQUE/kiracTharjinder you for referring APOORVA HARKINS to our office. Electronically Signed - CARLITO KHAN MD 04/02/20 18:08 Name Value Range Interpretation Code Description Data Candice rce(s) Supporting Document(s) ID Date Data Source [id number] 03/25/2020 12:00:00 AM EDT [facility] Shaq Copeland MD Patient Name: RASHAAD HARKINS[address] [facility] Date of : 1945[place] [address] Date of Exam: 03/25/2020#: Fax: [phone] EXAM: MRI HIP LEFT WITHOUT CONTRASTCLINICAL INFORMATION: Hip pain, atraumatic.There are no prior left hip MRI's for comparison.3T multiplanar MRI imaging of the left hip was obtained using varioussequences.There is asymmetric bilateral hip joint space narrowing, left greater thanright. There is a slight left hip joint effusion. There is no femoralhead flattening. There is T2 hypersignal seen in the trochanterictendinobursal region of each hip, left greater than right. There aredegenerative changes seen involving the AC joints. There is T2 hypersignalseen in the obturator externus muscle and in the gluteus musculature of theleft hip. There is a slight amount of edema in the quadratus femorismusculature. However, there is no evidence of ischiofemoral narrowing.There is subtle subchondral T2 hypersignal seen in the acetabulum withoutconcomitant signal changes in the left femoral head. There is no evidenceof a mass or mass effect. There is no evidence of a fracture.IMPRESSION:1. Bilateral hip degenerative changes, left greater than right.2. Bilateral trochanteric tendinobursitis, left greater than right.3. Left hip muscular edema. Etiology uncertain.4. Left hip joint effusion.5. Left hip subchondral edema in the acetabulum.6. Although not performed as a hip MRI arthrogram, there does appear to belabral degeneration and a labral tear which would be better evaluated withMRI arthrography if clinically relevant.7. Other findings as described above.Accredited by the [employer] in MR.BECKY Morfin/Cheikh you for referring APOORVA HARKINS to our office. Electronically Signed - RODERICK WYNN DO 03/26/20 15:40 Name Value Range Interpretation Code Description Data Candice rce(s) Supporting Document(s) ID Date Data Source [id number] 03/17/2020 08:20:00 AM EDT [facility] ([facility]) Name Value Range Interpretation Code Description Data Candice rce(s) Supporting Document(s) INR in Platelet poor plasma by Coagulation assay 2.0 [facility] ([facility]) ID Date Data Source [id number] 03/10/2020 11:13:00 AM EDT [facility] ([facility]) Name Value Range Interpretation Code Description Data Candice rce(s) Supporting Document(s) INR in Platelet poor plasma by Coagulation assay 2.5 [facility] ([facility]) ID Date Data Source [id number] 02/08/2020 08:28:00 AM EDT [facility] ([facility]) Name Value Range Interpretation Code Description Data Candice rce(s) Supporting Document(s) INR in Platelet poor plasma by Coagulation assay 1.7 [facility] ([facility]) ID Date Data Source [id number] 02/08/2020 08:14:00 AM EDT [facility] ([facility]) Name Value Range Interpretation Code Description Data Candice rce(s) Supporting Document(s) Thyrotropin [Units/volume] in Serum or Plasma by Detec tion limit <= 0.05 mIU/L 3.05 uIU/mL 0.36-3.74 [facility] ([facility] ) ID Date Data Source [id number] 02/08/2020 08:14:00 AM EDT [facility] ([facility]) Name Value Range Interpretation Code Description Data Candice rce(s) Supporting Document(s) Glucose [Mass/volume] in Serum or Plasma 181 mg/dL 74-99 [facility] ([facility]) 100-125 mg/dL PRE-DIABETES/FASTING >126 mg/dL DIABETES/FASTING Urea nitrogen [Mass/volume] in Serum or Plasma 21 mg/dL 7-18 [facility] ([facility]) Creatinine 0.9 mg/dL 0.6-1.3 [facility]) Sodium [Moles/volume] in Serum or Plasma 140 meq/L 136-145 [facility] ([facility]) Calcium [Mass/volume] in Serum or Plasma 9.3 mg/dL 8.5-10.1 [facility] ([facility]) Carbon dioxide, total [Moles/volume] in Serum or Plasma 28 meq/L 21 -32 [facility] ([facility]) Chloride [Moles/volume] in Serum or Plasma 102 meq/L 98-107 [facility] ([facility]) Potassium [Moles/volume] in Serum or Plasma 4.0 meq/L 3.5-5.1 [facility] ([facility]) Alkaline phosphatase isoenzyme [Units/volume] in Serum or Pl asma 100 mg/dL 46-116 [facility] ([facility]) Total Bilirubin 0.5 mg/dL 0.2-1.0 [facility] ([facility]) Aspartate aminotransferase [Enzymatic activity/volume] in Serum or Plasma 14 U/L 15-37 [facility] ([facility] ) A/G Ratio 0.83 CALC 1.00-1.90 [facility]) Albumin [Mass/volume] in Serum or Plasma 3.5 g/dL 3.4-5.0 [facility] ([facility]) Alanine aminotransferase [Enzymatic activity/volume] in Seru m or Plasma 19 U/L 12-78 [facility] ([facility]) Proteinase 3 Ab [Units/volume] in Serum 7.7 g/dL 6.4-8.2 [facility] ([facility]) Glomerular filtration rate/1.73 sq M pre dicted among non-blacks [Volume Rate/Area] in Serum or Plasma by Creatinine-based formula (MDRD) Laboratory test result [facility] Glomerular filtration rate/1.73 sq M pre dicted among blacks [Volume Rate/Area] in Serum or Plasma by Creatinine-based formula (MDRD) Laboratory test result [facility] <content>CHRONIC KIDNEY DISEASE STAGING PER NKF</content>
<content></content>
<content>STAGE I & II GFR >= 60 NORMAL TO MILDLY DECREASED</content>
<content>STAGE III GFR 30-59 MODERATELY DECREASED</content>
<content>STAGE IV GFR 15-29 SEVERELY DECREASED</content>
<content>STAGE V GFR <15 VERY LITTLE GFR LEFT</content>
<content>ESRD GFR <15 ON CDL BULK DRIVER</content>
<content></content> ID Date Data Source [id number] 02/08/2020 08:14:00 AM EDT [facility] Name Value Range Interpretation Code Description Data Candice rce(s) Supporting Document(s) Hemoglobin A1c/Hemoglobin.total in Blood 8.1 g/dL 4.8-5.6 [facility] Lab Result Notes: Pre-Diabetes 5.7 - 6.4 % Diabetes = or > 6.5% Glucose mean value [Mass/volume] in Blood Estimated fr om glycated hemoglobin 186 mg/dL 60-110 [facility] ID Date Data Source [id number] 02/08/2020 08:14:00 AM EDT [facility] Name Value Range Interpretation Code Description Data Candice rce(s) Supporting Document(s) Leukocytes [#/volume] in Blood by Automated count 10.2 x10*3/UL 4.1-1 0.9 [facility] ([facility]) Erythrocytes [#/volume] in Blood by Automated count 4.25 x10*6/UL 4.2 0-6.30 [facility] Hematocrit [Volume Fraction] of Blood by Automated count 37.6 % 3 7.0-51.0 [facility] ([facility]) MCV 88.5 fL 80.0-97.0 [facility] Hemoglobin [Mass/volume] in Blood 12.8 g/dL 12.0-18.0 [facility] ([facility]) MCHC 34.2 g/dL 31.0-38.0 [facility] Erythrocyte distribution width [Ratio] by Automated count 13.0 % 11.6-13.7 [facility] Platelets [#/volume] in Blood by Automated count 391 x10*3/UL 140-440 [facility] ([facility]) MCH 30.3 pg 26.0-32.0 [facility] MPV 8.4 FL 7.8-11.0 [facility] Lymph % 13.4 % 10.0-58.5 [facility] Mid % 4.3 % 1.7-9.3 [facility] Mid # 0.5 x10*3/UL 0.1-0.6 [facility] ([facility]) Lymph # 1.3 x10*3/UL 0.6-4.1 [facility] ([facility]) Neut % 82.3 % 37.0-92.0 [facility]) Neut # 8.4 x10*3/UL 2.0-7.8 [facility] ([facility]) ID Date Data Source [id number] 02/08/2020 08:14:00 AM EDT [facility] ([facility]) Name Value Range Interpretation Code Description Data Candice rce(s) Supporting Document(s) Hemoglobin A1c/Hemoglobin.total in Blood Laboratory test result [facility] ([facility]) ID Date Data Source [id number] 2020 08:37:00 AM EDT [facility] ([facility]) Name Value Range Interpretation Code Description Data Candice rce(s) Supporting Document(s) INR in Platelet poor plasma by Coagulation assay 1.8 [facility] ([facility]) ID Date Data Source [id number] 12/03/2019 02:32:00 PM EST [facility] ([facility]) Name Value Range Interpretation Code Description Data Candice rce(s) Supporting Document(s) INR in Platelet poor plasma by Coagulation assay 1.7 [facility] ([facility]) ID Date Data Source [id number] 11/01/2019 11:53:00 AM EST [facility] ([facility]) Name Value Range Interpretation Code Description Data Candice rce(s) Supporting Document(s) INR in Platelet poor plasma by Coagulation assay 1.8 [facility] ([facility]) ID Date Data Source [id number] 10/12/2019 12:00:00 AM EST [facility] Amanuel Jones MD Patient Name: APOORVA HARKINS53-[address] [facility] Date of : 1945[address] Date of Exam: 10/12/2019[place] [id number]#: Fax: [phone] EXAM: MAMMO SCREENING WITH CADCLINICAL INFORMATION: Screening mammogram.COMPARISON: 09/29/2018 as well as other prior exams.Family history of mother with breast cancer in her 60's.Based on the personal and family history information your patient suppliedat the time of imaging, her lifetime risk of breast cancer estimated by theTyrer-Cuzick model is 6.0%. Given that this patient has less than 20% TCrisk score, no further medical management is currently recommended at thistime.Digital screening (2D) mammography was performed bilaterally.Additionally, breast tomosynthesis (3D mammography) was performedbilaterally in the CC and MLO projections and compared to the priorexam(s).There has been no change in appearance of the mammogram from studies.There is a mild amount of residual fibroglandular tissue remaining, whichis fairly symmetric. There has been no interval development of dominantmasses, areas of structural distortion, or clusters of microcalcificationstypical of malignancy.Large coarse calcifications are present, of no clinical significance.Scattered lymph nodes are seen in the axilla.The Volpara volumetric breast density category is B, there are scatteredareas of fibroglandular density.IMPRESSION:BI-RADS Category 1 - Ne gative Mammogram. Currently no mammographicevidence of malignancy. Routine followup is recommended in one year.This mammogram was read with the assistance of [employer], an FDAapproved computer aided detection system for mammography.Negative x-ray reports should not delay surgical consultation if a dominantor clinically suspicious mass is present.Not all breast cancers can be identified by mammography. Therefore, werecommend that you continue to perform regular breast self-examination andphysical examination and then promptly contact your physician of anyconcerns or changes.Adenosis and dense breasts may obscure an underlying neoplasm.The patient states that a clinical breast examination was over a year ago.QUIRINO Wheeler/Charles you for referring APOORVA HARKINS to our office. Electronically Signed - FLORIDALMA JEROME MD 10/13/19 16:11 Name Value Range Interpretation Code Description Data Candice rce(s) Supporting Document(s) ID Date Data Source [id number] 10/01/2019 09:43:00 AM EST [facility] ([facility]) Name Value Range Interpretation Code Description Data Candice rce(s) Supporting Document(s) INR in Platelet poor plasma by Coagulation assay 1.7 [facility] ([facility]) ID Date Data Source [id number] 10/01/2019 09:07:00 AM EST [facility] ([facility]) Name Value Range Interpretation Code Description Data Candice rce(s) Supporting Document(s) Thyrotropin [Units/volume] in Serum or Plasma by Detec tion limit <= 0.05 mIU/L 3.29 uIU/mL 0.36-3.74 [facility] ([facility] ) ID Date Data Source [id number] 10/01/2019 09:07:00 AM EST [facility] ([facility]) Name Value Range Interpretation Code Description Data Candice rce(s) Supporting Document(s) Cholesterol [Mass/volume] in Serum or Plasma 231 mg/dL 131-200 [facility] ([facility]) Triglyceride [Mass/volume] in Serum or Plasma 105 mg/dL 30-150 [facility] ([facility]) Cholesterol in LDL [Mass/volume] in Serum or Plasma by calcu lation 164 CALC 50-159 [facility] ([facility]) Cholesterol in HDL [Mass/volume] in Serum or Plasma 46 mg/dL 35-60 [facility] ([facility]) ID Date Data Source [id number] 10/01/2019 09:07:00 AM EST [facility] ([facility]) Name Value Range Interpretation Code Description Data Candice rce(s) Supporting Document(s) Glucose [Mass/volume] in Serum or Plasma 163 mg/dL 74-99 [facility] ([facility]) 100-125 mg/dL PRE-DIABETES/FASTING >126 mg/dL DIABETES/FASTING Urea nitrogen [Mass/volume] in Serum or Plasma 16 mg/dL 7-18 [facility] ([facility]) Potassium [Moles/volume] in Serum or Plasma 4.2 meq/L 3.5-5.1 [facility] ([facility]) Sodium [Moles/volume] in Serum or Plasma 143 meq/L 136-145 [facility] ([facility]) Creatinine 0.9 mg/dL 0.6-1.3 [facility] ([facility]) Chloride [Moles/volume] in Serum or Plasma 103 meq/L 98-107 [facility] ([facility]) Carbon dioxide, total [Moles/volume] in Serum or Plasma 27 meq/L 21 -32 [facility] ([facility]) Calcium [Mass/volume] in Serum or Plasma 9.1 mg/dL 8.5-10.1 [facility] ([facility]) Aspartate aminotransferase [Enzymatic activity/volume] in Serum or Plasma 18 U/L 15-37 [facility] ([facility] ) Total Bilirubin 0.5 mg/dL 0.2-1.0 [facility] ([facility]) Alkaline phosphatase isoenzyme [Units/volume] in Serum or Pl asma 96 mg/dL 46-116 [facility] ([facility]) Proteinase 3 Ab [Units/volume] in Serum 7.4 g/dL 6.4-8.2 [facility] ([facility]) Alanine aminotransferase [Enzymatic activity/volume] in Seru m or Plasma 25 U/L 12-78 [facility] ([facility]) Albumin [Mass/volume] in Serum or Plasma 3.6 g/dL 3.4-5.0 [facility] ([facility]) Glomerular filtration rate/1.73 sq M pre dicted among non-blacks [Volume Rate/Area] in Serum or Plasma by Creatinine-based formula (MDRD) Laboratory test result [facility] ([facility] ) A/G Ratio 0.95 CALC 1.00-1.90 [facility] Glomerular filtration rate/1.73 sq M pre dicted among blacks [Volume Rate/Area] in Serum or Plasma by Creatinine-based formula (MDRD) Laboratory test result [facility] ([facility]) <content>CHRONIC KIDNEY DISEASE STAGING PER NK[facility]</content>
<content></content>
<content>STAGE I & II GFR >= 60 NORMAL TO MILDLY DECREASED</content>
<content>STAGE III GFR 30-59 MODERATELY DECREASED</content>
<content>STAGE IV GFR 15-29 SEVERELY DECREASED</content>
<content>STAGE V GFR <15 VERY LITTLE GFR LEFT</content>
<content>ESRD GFR <15 ON CDL BULK DRIVER</content>
<content></content> ID Date Data Source [id number] 10/01/2019 09:07:00 AM EST [facility] ([facility]) Name Value Range Interpretation Code Description Data Candice rce(s) Supporting Document(s) Hemoglobin A1c/Hemoglobin.total in Blood 7.8 g/dL 4.8-5.6 [facility] ([facility]) Lab Result Notes: Pre-Diabetes 5.7 - 6.4 % Diabetes = or > 6.5% Glucose mean value [Mass/volume] in Blood Estimated fr om glycated hemoglobin 177 mg/dL 60-110 [facility] ([facility] ) Procedure Social History Code Duration Value Status Description Data Source(s ) Smoking 07/21/2020 12:00:00 AM EDT Never Smoker completed Never S moker eCW1 ([facility]) Smoking 07/21/2020 12:00:00 AM EDT Never Smoker completed Never S moker eCW1 ([facility]) Smoking 05/22/2020 08:59:02 AM EDT Ex-smoker (finding) complet ed Ex-smoker (finding) DIEUDONNE (Alber Kraft MD [facility]) Smoking 10/09/2019 03:56:53 PM EST Ex-smoker (finding) complet ed Ex-smoker (finding) DIEUDONNE (Alber Kraft MD [facility]) Vital Signs ID Date Data Source UNK Name Value Range Interpretation Code Description Data Source(s) Body mass index (BMI) [Ratio] 34.9 kg/m2 34.9 k g/m2 [facility] ([facility]) Body weight 216.00 [lb_av] 216.00 [lb_av] [facility] ([facility]) Body height 66 [in_i] 66 [in_i] [facility] ([facility]) 5'6" Heart rate 80 /min 80 /min [facility] ([facility]) Diastolic blood pressure 60 mm[Hg] 60 mm[Hg] [facility] ([facility]) RT Arm Systolic blood pressure 104 mm[Hg] 104 mm[Hg] [facility] ([facility]) RT Arm Body weight 216.00 [lb_av] 216.00 [lb_av] [facility] ([facility]) Body mass index (BMI) [Ratio] 34.5 kg/m2 34.5 k g/m2 [facility] ([facility]) Oxygen saturation in Arterial blood by Pulse oximetry 93 % 93 % [facility] ([facility]) Body weight 214.00 [lb_av] 214.00 [lb_av] [facility] ([facility]) Body height 66 [in_i] 66 [in_i] [facility] ([facility]) 5'6" Heart rate 86 /min 86 /min [facility] ([facility]) Diastolic blood pressure 54 mm[Hg] 54 mm[Hg] [facility] ([facility]) Systolic blood pressure 110 mm[Hg] 110 mm[Hg] [facility] ([facility]) Body weight 222.00 [lb_av] 222.00 [lb_av] [facility] ([facility]) Body weight 223.00 [lb_av] 223.00 [lb_av] [facility] ([facility]) Diastolic blood pressure 80 mm[Hg] 80 mm[Hg] eCW1 ([facility]) Systolic blood pressure 128 mm[Hg] 128 mm[Hg] e CW1 ([facility]) Body mass index (BMI) [Ratio] 34.14 kg/m2 34.14 kg/m2 eCW1 ([facility]) Body height [in_i] eCW1 ([facility]) Body weight 218.0 [lb_av] 218.0 [lb_av] eCW1 ([facility]) Body weight 219.00 [lb_av] 219.00 [lb_av] [facility] ([facility]) Body mass index (BMI) [Ratio] 35.3 kg/m2 35.3 k g/m2 [facility] ([facility]) Oxygen saturation in Arterial blood by Pulse oximetry 98 % 98 % [facility] ([facility]) RM Air Body weight 219.00 [lb_av] 219.00 [lb_av] [facility] ([facility]) Body height 66 [in_i] 66 [in_i] [facility] ([facility]) 5'6" Heart rate 86 /min 86 /min [facility] ([facility]) Diastolic blood pressure 66 mm[Hg] 66 mm[Hg] [facility] ([facility]) Systolic blood pressure 124 mm[Hg] 124 mm[Hg] [facility] Body weight 217.00 [lb_av] 217.00 [lb_av] [facility] ([facility]) Body mass index (BMI) [Ratio] 34.6 kg/m2 34.6 k g/m2 [facility] ([facility]) Body weight 214.25 [lb_av] 214.25 [lb_av] [facility] ([facility]) Body height 66 [in_i] 66 [in_i] [facility] ([facility]) 5'6" Heart rate 88 /min 88 /min [facility] ([facility]) Diastolic blood pressure 74 mm[Hg] 74 mm[Hg] [facility] ([facility]) RT Arm Systolic blood pressure 122 mm[Hg] 122 mm[Hg] [facility] ([facility]) RT Arm Body weight 216.00 [lb_av] 216.00 [lb_av] [facility] T ([facility]) Body weight 221.00 [lb_av] 221.00 [lb_av] [facility] ([facility]) Body weight 211.00 [lb_av] 211.00 [lb_av] [facility] ([facility]) Body mass index (BMI) [Ratio] 33.5 kg/m2 33.5 k g/m2 [facility] ([facility] ) Body weight 214.00 [lb_av] 214.00 [lb_av] [facility] T ([facility] ) Body height 67 [in_i] 67 [in_i] [facility] ([facility] ) 5'7" Body temperature 97.2 [degF] 97.2 [degF] [facility] ([facility] ) Body weight 214.00 [lb_av] 214.00 [lb_av] [facility] ([facility]) Body mass index (BMI) [Ratio] 37.0 kg/m2 37.0 k g/m2 [facility] ([facility] ) Body weight 219.00 [lb_av] 219.00 [lb_av] [facility] T ([facility] ) Body height 64.5 [in_i] 64.5 [in_i] [facility] ([facility] ) 5'4.50" Body temperature 97.0 [degF] 97.0 [degF] [facility] ([facility] ) Body weight 219.00 [lb_av] 219.00 [lb_av] [facility] T ([facility]) Heart rate 78 /min 78 /min [facility] ([facility]) Diastolic blood pressure 70 mm[Hg] 70 mm[Hg] [facility] ([facility]) Systolic blood pressure 134 mm[Hg] 134 mm[Hg] [facility] ([facility]) Body weight 219.00 [lb_av] 219.00 [lb_av] [facility] ([facility]) Body weight 219.00 [lb_av] 219.00 [lb_av] [facility] ([facility]) Body weight 222.00 [lb_av] 222.00 [lb_av] [facility] ([facility]) Body mass index (BMI) [Ratio] 35.08 kg/m2 35.08 kg/m2 eCW1 ([facility]) Body height [in_us] eCW1 ([facility]) Body weight Measured 224 [lb_av] 224 [lb_av] eC W1 ([facility]) Body weight 224.00 [lb_av] 224.00 [lb_av] [facility] T ([facility]) Body weight 224.00 [lb_av] 224.00 [lb_av] [facility] T ([facility]) Oxygen saturation in Arterial blood by Pulse oximetry 97 % 97 % [facility] ([facility]) Body weight 225.00 [lb_av] 225.00 [lb_av] [facility] T ([facility]) Heart rate 72 /min 72 /min [facility] ([facility]) Diastolic blood pressure 72 mm[Hg] 72 mm[Hg] [facility]) Systolic blood pressure 130 mm[Hg] 130 mm[Hg] [facility] ([facility]) Body weight 225.00 [lb_av] 225.00 [lb_av] [facility] ([facility]) Patient Treatment Plan of Care Planned Activity Planned Date Details Description Data Source (s) ciclopirox 7.7 MG/ML Topical Cream 07/21/2020 12:00:00 AM EDT eCW1 ([facility]) ciclopirox 7.7 MG/ML Topical Cream 07/21/2020 12:00:00 AM EDT eCW1 ([facility])
[2020-11-24] MEDS ORDERED: PIPERACILLIN/TAZOBACTAM SOD 3.375 GM in D5W MINI-BAG PLUS 50 ML IV ONE (11:00)
[2020-11-24 11:08] LABS: BASO % 0.4 % (0.0-1.0); EOS % 0.2 % (0.0-3.0); HEMATOCRIT 33.1 % (36.0-47.0); HEMOGLOBIN 10.2 g/dl (12.0-15.5); LYMPH # 1.2 10^3/uL (1.5-5.0); LYMPH % 11.7 % (24.0-44.0); MEAN CORPUSCULAR HEMOGLOBIN 27.5 pg (27.0-33.0); MEAN CORPUSCULAR HGB CONC 30.8 g/dl (32.0-36.5); MEAN CORPUSCULAR VOLUME 89.2 fl (80.0-96.0); MONO # 0.5 10^3/uL (0.0-0.8); NEUTROPHILS # 8.5 10^3/uL (1.5-8.5); NEUTROPHILS % 81.4 % (36.0-66.0); PLATELET COUNT, AUTOMATED 448 10^3/uL (150-450); RED BLOOD COUNT 3.71 10^6/uL (4.00-5.40); WHITE BLOOD COUNT 10.4 10^3/uL (4.0-10.0)
[2020-11-24] MEDS ORDERED: ATEN50TA2 PO (11:12)
[2020-11-24 11:19] LABS: INR 1.94; PROTHROMBIN TIME 22.6 SECONDS (12.5-14.3)
[2020-11-24 11:20] LABS: PARTIAL THROMBOPLASTIN TIME 37.1 SECONDS (24.2-38.5)
[2020-11-24 11:29] LABS: ERYTHROCYTE SEDIMENTATION RATE 129 mm/hr (0-30)
[2020-11-24] MEDS ORDERED: GLUCAGON INJ 1MG VIAL SC PRN (11:30)
[2020-11-24] MEDS ORDERED: DEXTROSE 50% 50 ML SYRINGE IV PRN (11:30)
[2020-11-24] MEDS ORDERED: GLUCOSE 4GM CHEW TABLET PO PRN (11:30)
[2020-11-24 11:32] LABS: ALBUMIN 2.8 GM/DL (3.2-5.2); ALT/SGPT 16 U/L (12-78); BILIRUBIN,DIRECT 0.2 MG/DL (0.0-0.2); BILIRUBIN,TOTAL 0.4 MG/DL (0.2-1.0); BLOOD UREA NITROGEN 18 MG/DL (7-18); CALCIUM LEVEL 8.9 MG/DL (8.8-10.2); CARBON DIOXIDE LEVEL 27 MEQ/L (21-32); CHLORIDE LEVEL 104 MEQ/L (98-107); CREATININE FOR GFR 0.88 MG/DL (0.55-1.30); GLOMERULAR FILTRATION RATE > 60.0 (>39); GLUCOSE, FASTING 208 MG/DL (70-100); SODIUM LEVEL 139 MEQ/L (136-145); TOTAL PROTEIN 7.1 GM/DL (6.4-8.2)
[2020-11-24 13:42] VITALS: BP 146/80
[2020-11-24] MEDS: HumaLOG INSULIN (NovoLOG) PER UNIT SC SCH ×3 (13:59→21:00)
[2020-11-24] MEDS: atenoloL 50 MG TAB PO SCH (14:09)
[2020-11-24] MEDS: CEFTAROLINE FOSAMIL 600 MG in D5W MINI-BAG PLUS 50 ML IV SCH (14:23)
--- NOTE | 2020-11-24 15:38 | HPE ---
"HISTORY AND PHYSICAL DATE OF ADMISSION: 11/24/2020 PRIMARY CARE PHYSICIAN: Dr. Amanuel Jones CHIEF COMPLAINT: Cellulitis left lower extremity, unresponsive to outpatient therapy. HISTORY OF PRESENT ILLNESS: Ania Harkins is a 75-year-old. She has been on Keflex this week for a mild cellulitis of the left lower extremity. She has failed to respond to this, so she is being admitted for intravenous antibiotics. The redness in the leg has extended despite the oral antibiotics. She has no fever, chills, or feelings of weakness. She had an ultrasound of that leg done a few days ago, that was negative for deep vein thrombosis. She has had some ongoing problems with cracked, fissured left foot, diagnosed with a fungal rash at [facility] on 08/22. She has no past history of cellulitis or other significant infections, and she is not immune suppressed. PAST MEDICAL HISTORY: The patient's past medical history is significant for: 1. Type 2 diabetes mellitus with good control of her diabetes. Hemoglobin C is 7.4%. 2. Hypertensive heart disease. 3. Atrial fibrillation on chronic anticoagulant therapy. 4. She recently had an abnormal mammogram of the left breast, approximate category 4 mammogram for which she is supposed to see the breast surgeon, Dr. Rodarte on 11/26. | SOCIAL HISTORY: , nonsmoker, no alcohol. REVIEW OF SYSTEMS: No fevers, chills, night sweats, , weight loss, rectal bleeding, urinary bleeding, hematemesis. MEDICATIONS: 1. Atenolol 25 mg at night, 50 mg in the morning. 2. Keflex 500 mg three times daily. 3. Glipizide E.R. 5 mg three times daily. 4. Hydrochlorothiazide 25 mg daily. 5. Metformin 850 mg three times daily. 6. Warfarin 4 mg q. h.s. ALLERGIES: STATINS. FAMILY HISTORY: Noncontributory. PHYSICAL EXAMINATION: VITAL SIGNS: Per flow sheet, blood pressure 146/80, afebrile. GENERAL APPEARANCE: Appears alert, conversant, in no distress. HEENT: Unremarkable. LUNGS: Clear. HEART: Without murmurs, rubs or gallops. ABDOMEN: Soft, nontender, no masses. EXTREMITIES: No clubbing, cyanosis, or edema. Normal strength in the arms and legs. Left lower extremity is erythematous from ankle to just below the knee. Area is demarcated with a marker for reference. The skin of her foot is thickened, calloused, and fissured. LABORATORY STUDIES: White count 10.4, hemoglobin 10.2, platelet count 448. INR 1.94. Sodium 139, potassium 4, BUN 18, creatinine 0.8, glucose 208. C-reactive protein 11.4. COVID is negative. IMPRESSION AND PLAN: 1. Cellulitis left lower extremity - She will be admitted to a Medical bed, started on Ceftaroline 600 mg q. 12 hours, daily CBC's have been ordered. We will get a C-reactive protein in a few days as well. She is hoping to be discharged on the morning of the , as she has an initial encounter with Breast Surgery for abnormal mammogram. 2. Type 2 diabetes hold her oral agent. Fingerstick blood sugars with coverage. 3. Fungal foot infection recommend moisturizing creams to soften the thickened fissures. 4. Atrial fibrillation - continue her Atenolol and Warfarin. Daily INR's have been ordered. 5. Hypertension - continue her Hydrochlorothiazide and Atenolol."
[2020-11-24] MEDS ORDERED: WARFARIN SOD 4MG TAB PO SCH (21:00)
[2020-11-24] MEDS: atenoloL 25 MG TAB PO SCH (21:19)
[2020-11-24 21:58] VITALS: BP 111/53
[2020-11-25] MEDS: CEFTAROLINE FOSAMIL 600 MG in D5W MINI-BAG PLUS 50 ML IV SCH (02:42)
[2020-11-25 06:00] VITALS: BP 136/64
[2020-11-25 07:01] LABS: HEMATOCRIT 30.7 % (36.0-47.0); HEMOGLOBIN 9.3 g/dl (12.0-15.5); MEAN CORPUSCULAR HGB CONC 30.3 g/dl (32.0-36.5); MEAN CORPUSCULAR VOLUME 89.2 fl (80.0-96.0); PLATELET COUNT, AUTOMATED 456 10^3/uL (150-450); RED BLOOD COUNT 3.44 10^6/uL (4.00-5.40); WHITE BLOOD COUNT 10.4 10^3/uL (4.0-10.0)
[2020-11-25 07:26] LABS: INR 2.09; PROTHROMBIN TIME 23.9 SECONDS (12.5-14.3)
[2020-11-25 07:30] LABS: BLOOD UREA NITROGEN 19 MG/DL (7-18); CALCIUM LEVEL 8.7 MG/DL (8.8-10.2); CARBON DIOXIDE LEVEL 27 MEQ/L (21-32); CHLORIDE LEVEL 103 MEQ/L (98-107); CREATININE FOR GFR 0.87 MG/DL (0.55-1.30); GLOMERULAR FILTRATION RATE > 60.0 (>39); GLUCOSE, FASTING 169 MG/DL (70-100); POTASSIUM SERUM 3.8 MEQ/L (3.5-5.1); SODIUM LEVEL 140 MEQ/L (136-145)
[2020-11-25] MEDS: HumaLOG INSULIN (NovoLOG) PER UNIT SC SCH ×4 (08:37→21:00)
[2020-11-25] MEDS: atenoloL 50 MG TAB PO SCH (08:38)
[2020-11-25] MEDS ORDERED: ENOXAPARIN 40MG/0.4ML SYRINGE (J1650 PER 10MG) SC SCH (09:00)
[2020-11-25] MEDS: CLINDAMYCIN 600 MG in IV 1 EA IV SCH ×3 (09:52→21:34)
[2020-11-25 14:00] VITALS: BP 120/54
[2020-11-25] MEDS: WARFARIN SOD 4MG TAB PO SCH (17:21)
--- NOTE | 2020-11-25 18:23 | IPNPDOC ---
Date Seen The patient was seen on 11/25/20. Progress Note SUBJECTIVE: Improving cellulitis of LLE. Denies fevers, chills, n/v/d. OBJECTIVE: PHYSICAL EXAMINATION: VITAL SIGNS: Please see below GENERAL APPEARANCE: NAD, resting in bedside chair HEENT: AT/NC, PERRLA, EOM intact LUNGS: CTAB, no W/R/R HEART: Without murmurs, rubs or gallops. ABDOMEN: Soft, nontender, no masses. BS + in 4 quad EXTREMITIES: LLE swelling, + 1 edema. No cyanosis or clubbing LABORATORY STUDIES: Please see below MICROBIOLOGY: BCx NG ASSESSMENT: 75 y/o F with PMH of DM type II, atrial fib, HTN admitted for LLE cellulitis. PLAN: Cellulitis left lower extremity- slowly improving -WBC 10.4, receeding erythema from outlined area. -BCx NG x 2 sets -Afebrile -C/w clindamycin, daily labs, PT/OT to see in the AM Abnormal mammogram -to be following up with Breast surgeon this week on 11/27/20 Type 2 diabetes -BS stable -ISS, FS AC/HS Fungal foot infection -moisturizing creams to soften thickened fissures. Atrial fibrillation, chronic -INR therapeutic -C/w Atenolol and Warfarin. -Daily INR's Hypertension -Stable -C/w Hydrochlorothiazide and Atenolol DVT px -Warfarin DISPOSITION: Likely d/c home in several days on PO if continue to improve like she has. PT/OT to see in AM. VS, I&O, 24H, Fishbone Vital Signs/I&O Vital Signs Date Time Temp Pulse Resp B/P (MAP) Pulse Ox O2 Delivery O2 Flow Rate FiO2 11/25/20 14:00 98.7 93 18 120/54 (76) 95 Room Air I&O- Last 24 Hours up to 6 AM 11/25/20 06:00 Intake Total 1310 ml Output Total 850 ml Balance 460 ml Laboratory Data 24H LABS Laboratory Tests 2 11/24/20 20:35: Bedside Glucose (Misc Panel) 244H 11/25/20 06:08: Nucleated Red Blood Cells % (auto) 0.0, Prothrombin Time 23.9H, Prothromb Time International Ratio 2.09, Anion Gap 10, Glomerular Filtration Rate > 60.0, Calcium Level 8.7L 11/25/20 12:02: Bedside Glucose (Misc Panel) 216H 11/25/20 16:37: Bedside Glucose (Misc Panel) 215H CBC/BMP Laboratory Tests 11/25/20 06:08 Microbiology Microbiology 11/24/20 Blood Culture - Preliminary, Resulted No growth after 24 hours . All specim... 11/24/20 Respiratory Virus Panel (PCR) ([facility]) - Final, Complete 11/24/20 Blood Culture - Preliminary, Resulted No growth after 24 hours . All specim... Current Medications Current Medications Medications (Trade) Dose Ordered Sig/Lizette Route PRN Reason Start Time Stop Time Status Last Admin Dose Admin Atenolol (Tenormin) 25 mg QHS PO 11/24/20 21:00 11/24/20 21:19 Atenolol (Tenormin) 50 mg QAM PO 11/24/20 09:00 11/25/20 08:38 Ceftaroline Fosamil 600 mg/ Dextrose 50 ml @ 50 mls/hr Q12H IV 11/24/20 14:00 11/25/20 08:59 DC 11/25/20 02:42 Clindamycin Phosphate 600 mg/ IV Miscellaneous Supplies 50 ml @ 100 mls/hr Q6H IV 11/25/20 09:00 11/25/20 15:21 Dextrose (Dextrose 50%) 25 ml ASDIRECTED PRN IV SEE LABEL COMMENTS 11/24/20 11:30 Enoxaparin Sodium (Lovenox) 40 mg DAILY SC 11/25/20 09:00 11/24/20 12:03 DC Glucagon (Glucagon) 1 mg ASDIRECTED PRN SC SEE LABEL COMMENTS 11/24/20 11:30 Glucose (Glucose) 16 GM ASDIRECTED PRN PO SEE LABEL COMMENTS 11/24/20 11:30 Home Med (Med Rec Complete!) ASDIRECTED XX 11/24/20 11:15 11/24/20 11:17 DC Hydrochlorothiazide (Hydrodiuril) 25 mg DAILY PO 11/24/20 09:00 11/25/20 08:37 Insulin Human Lispro (HumaLOG INSULIN) SEE PROTOCOL TABLE AC SC 11/24/20 12:00 11/25/20 17:22 Insulin Human Lispro (HumaLOG INSULIN) SEE PROTOCOL TABLE QHS SC 11/24/20 21:00 Warfarin Sodium (Coumadin) 4 mg QHS PO 11/24/20 21:00 11/24/20 23:59 DC 11/24/20 21:16 Warfarin Sodium (Coumadin) 4 mg QHS@1700 PO 11/25/20 17:00 11/25/20 17:21 Allergies Coded Allergies: [id number] Reductase Inhibitor (Verified Adverse Reaction, Unknown, JOINT PAIN, 11/24/20) Hoa Lanza MD Nov 25, 2020 18:22
[2020-11-25] MEDS: atenoloL 25 MG TAB PO SCH (21:34)
[2020-11-25 22:00] VITALS: BP 114/53
[2020-11-26] MEDS: CLINDAMYCIN 600 MG in IV 1 EA IV SCH ×4 (03:15→21:09)
[2020-11-26 06:00] VITALS: BP 128/56
[2020-11-26 06:32] LABS: HEMATOCRIT 31.3 % (36.0-47.0); HEMOGLOBIN 9.4 g/dl (12.0-15.5); MEAN CORPUSCULAR HEMOGLOBIN 26.8 pg (27.0-33.0); MEAN CORPUSCULAR VOLUME 89.2 fl (80.0-96.0); PLATELET COUNT, AUTOMATED 486 10^3/uL (150-450); RED BLOOD COUNT 3.51 10^6/uL (4.00-5.40); WHITE BLOOD COUNT 11.8 10^3/uL (4.0-10.0)
[2020-11-26 06:48] LABS: INR 2.75; PROTHROMBIN TIME 29.7 SECONDS (12.5-14.3)
[2020-11-26 07:01] LABS: BLOOD UREA NITROGEN 23 MG/DL (7-18); C REACTIVE PROTEIN QUANTITATIV 7.71 MG/DL (0.00-0.30); CALCIUM LEVEL 8.7 MG/DL (8.8-10.2); CARBON DIOXIDE LEVEL 27 MEQ/L (21-32); CHLORIDE LEVEL 104 MEQ/L (98-107); CREATININE FOR GFR 0.95 MG/DL (0.55-1.30); GLOMERULAR FILTRATION RATE > 60.0 (>39); GLUCOSE, FASTING 174 MG/DL (70-100); POTASSIUM SERUM 3.8 MEQ/L (3.5-5.1); SODIUM LEVEL 140 MEQ/L (136-145)
[2020-11-26] MEDS: HumaLOG INSULIN (NovoLOG) PER UNIT SC SCH ×4 (08:46→21:09)
[2020-11-26] MEDS: atenoloL 50 MG TAB PO SCH (08:48)
[2020-11-26] MEDS: LEVEMIR (INSULIN DETEMIR) 1 UNITS/0.01ML SC SCH (09:42)
[2020-11-26] MEDS: ACETAMINOPHEN TAB 650MG DOSE (2X325MG) PO PRN ×2 (09:42→22:09)
[2020-11-26 14:00] VITALS: BP 115/58
[2020-11-26] MEDS: WARFARIN SOD 4MG TAB PO SCH (17:25)
--- NOTE | 2020-11-26 17:51 | IPNPDOC ---
Date Seen The patient was seen on 11/26/20. Progress Note SUBJECTIVE: Improving cellulitis of LLE; however, left foot/calf still swollen. PT: sfe for discharge home when cleared by medicine. Denies fevers, chills, n/v/d. OBJECTIVE: PHYSICAL EXAMINATION: VITAL SIGNS: Please see below GENERAL APPEARANCE: NAD, resting in bedside chair HEENT: AT/NC, PERRLA, EOM intact LUNGS: CTAB, no W/R/R HEART: Without murmurs, rubs or gallops. ABDOMEN: Soft, nontender, no masses. BS + in 4 quad EXTREMITIES: LLE swelling/redness improving; however, left foot still red, swollen > right, + 1 edema. No cyanosis or clubbing LABORATORY STUDIES: Please see below MICROBIOLOGY: BCx NG ASSESSMENT: 75 y/o F with PMH of DM type II, atrial fib, HTN admitted for LLE cellulitis. PLAN: Cellulitis left lower extremity- slowly improving -WBC slightly worsened to 11.8, receeding erythema from outlined area continues with left foot and left calf still very red/swollen . -BCx NG x 2 sets -Afebrile -C/w clindamycin, daily labs, PT/OT to see in the AM -If improvement stalls, consider switching back to teflaro. Abnormal mammogram -to be following up with Breast surgeon this week on 11/28/20 -If not anticipated to be discharged by 11/27/20 can reschedule for patient. Type 2 diabetes -BS stable -ISS, FS AC/HS Fungal foot infection -moisturizing creams to soften thickened fissures. Atrial fibrillation, chronic -INR therapeutic -C/w Atenolol and Warfarin. -Daily INR's Hypertension -Stable -C/w Hydrochlorothiazide and Atenolol DVT px -Warfarin DISPOSITION: Likely d/c home in several days on PO if continue to improve like she has. VS, I&O, 24H, Fishbone Vital Signs/I&O Vital Signs Date Time Temp Pulse Resp B/P (MAP) Pulse Ox O2 Delivery O2 Flow Rate FiO2 11/26/20 14:00 98.1 92 17 115/58 (77) 93 Room Air I&O- Last 24 Hours up to 6 AM 11/26/20 06:00 Intake Total 2270 ml Output Total 850 ml Balance 1420 ml Laboratory Data 24H LABS Laboratory Tests 2 11/25/20 20:24: Bedside Glucose (Misc Panel) 211H 11/26/20 05:37: Nucleated Red Blood Cells % (auto) 0.0, Prothrombin Time 29.7H, Prothromb Time International Ratio 2.75, Anion Gap 9, Glomerular Filtration Rate > 60.0, Calcium Level 8.7L, C-Reactive Protein, Quantitative 7.71H 11/26/20 11:29: Bedside Glucose (Misc Panel) 255H 11/26/20 16:32: Bedside Glucose (Misc Panel) 158H CBC/BMP Laboratory Tests 11/26/20 05:37 Microbiology Microbiology 11/24/20 Blood Culture - Preliminary, Resulted No Growth after 48 hours. All Specime... 11/24/20 Respiratory Virus Panel (PCR) ([facility]) - Final, Complete 11/24/20 Blood Culture - Preliminary, Resulted No Growth after 48 hours. All Specime... Current Medications Current Medications Medications (Trade) Dose Ordered Sig/Lizette Route PRN Reason Start Time Stop Time Status Last Admin Dose Admin Acetaminophen (Tylenol Tab) 650 mg Q6HP PRN PO PAIN / FEVER 11/26/20 09:00 11/26/20 09:42 Atenolol (Tenormin) 25 mg QHS PO 11/24/20 21:00 11/25/20 21:34 Atenolol (Tenormin) 50 mg QAM PO 11/24/20 09:00 11/26/20 08:48 Ceftaroline Fosamil 600 mg/ Dextrose 50 ml @ 50 mls/hr Q12H IV 11/24/20 14:00 11/25/20 08:59 DC 11/25/20 02:42 Clindamycin Phosphate 600 mg/ IV Miscellaneous Supplies 50 ml @ 100 mls/hr Q6H IV 11/25/20 09:00 11/26/20 16:20 Dextrose (Dextrose 50%) 25 ml ASDIRECTED PRN IV SEE LABEL COMMENTS 11/24/20 11:30 Enoxaparin Sodium (Lovenox) 40 mg DAILY SC 11/25/20 09:00 11/24/20 12:03 DC Glucagon (Glucagon) 1 mg ASDIRECTED PRN SC SEE LABEL COMMENTS 11/24/20 11:30 Glucose (Glucose) 16 GM ASDIRECTED PRN PO SEE LABEL COMMENTS 11/24/20 11:30 Home Med (Med Rec Complete!) ASDIRECTED XX 11/24/20 11:15 11/24/20 11:17 DC Hydrochlorothiazide (Hydrodiuril) 25 mg DAILY PO 11/24/20 09:00 11/26/20 08:45 Insulin Detemir (Levemir Insulin) 8 units QAM SC 11/26/20 09:00 11/26/20 09:42 Insulin Human Lispro (HumaLOG INSULIN) SEE PROTOCOL TABLE AC SC 11/24/20 12:00 11/26/20 17:26 Insulin Human Lispro (HumaLOG INSULIN) SEE PROTOCOL TABLE QHS SC 11/24/20 21:00 Warfarin Sodium (Coumadin) 4 mg QHS PO 11/24/20 21:00 11/24/20 23:59 DC 11/24/20 21:16 Warfarin Sodium (Coumadin) 4 mg QHS@1700 PO 11/25/20 17:00 11/26/20 17:25 Allergies Coded Allergies: [id number] Reductase Inhibitor (Verified Adverse Reaction, Unknown, JOINT PAIN, 11/24/20) Hoa Lanza MD Nov 26, 2020 17:51
[2020-11-26] MEDS: atenoloL 25 MG TAB PO SCH (21:10)
[2020-11-26 22:00] VITALS: BP 132/59
[2020-11-27] MEDS: CLINDAMYCIN 600 MG in IV 1 EA IV SCH ×4 (02:17→20:49)
[2020-11-27 06:00] VITALS: BP 111/61
[2020-11-27 06:13] LABS: HEMATOCRIT 29.6 % (36.0-47.0); HEMOGLOBIN 8.9 g/dl (12.0-15.5); MEAN CORPUSCULAR HEMOGLOBIN 26.5 pg (27.0-33.0); MEAN CORPUSCULAR HGB CONC 30.1 g/dl (32.0-36.5); MEAN CORPUSCULAR VOLUME 88.1 fl (80.0-96.0); PLATELET COUNT, AUTOMATED 462 10^3/uL (150-450); RED BLOOD COUNT 3.36 10^6/uL (4.00-5.40); WHITE BLOOD COUNT 10.5 10^3/uL (4.0-10.0)
[2020-11-27 06:23] LABS: INR 3.5; PROTHROMBIN TIME 35.9 SECONDS (12.5-14.3)
[2020-11-27 06:29] LABS: CALCIUM LEVEL 8.6 MG/DL (8.8-10.2); CREATININE FOR GFR 0.99 MG/DL (0.55-1.30); GLOMERULAR FILTRATION RATE 58.2 (>39); POTASSIUM SERUM 3.7 MEQ/L (3.5-5.1)
[2020-11-27] MEDS: atenoloL 50 MG TAB PO SCH (08:07)
[2020-11-27] MEDS: LEVEMIR (INSULIN DETEMIR) 1 UNITS/0.01ML SC SCH (08:08)
[2020-11-27] MEDS: HumaLOG INSULIN (NovoLOG) PER UNIT SC SCH ×5 (08:08→20:50)
[2020-11-27 14:00] VITALS: BP 115/61
[2020-11-27] MEDS: ACETAMINOPHEN TAB 650MG DOSE (2X325MG) PO PRN ×2 (14:54→20:56)
--- NOTE | 2020-11-27 17:05 | IPNPDOC ---
Date Seen The patient was seen on 11/27/20. Progress Note SUBJECTIVE: Cellulitis continuing to slowly improve but still, when compared to right foot, left foot still swollen. Supratherapeutic INR, holding tonight's warfarin dose. Denies fevers, chills, n/v/d. OBJECTIVE: PHYSICAL EXAMINATION: VITAL SIGNS: Please see below GENERAL APPEARANCE: NAD, resting in bedside chair HEENT: AT/NC, PERRLA, EOM intact LUNGS: CTAB, no W/R/R HEART: Without murmurs, rubs or gallops. ABDOMEN: Soft, nontender, no masses. BS + in 4 quad EXTREMITIES: LLE swelling/redness improving; however, left foot still red, swollen > right, + 1 edema. No cyanosis or clubbing INTEGUMENTARY: CRACKing of right heel, very dry skin b/l lower ext, improving swelling as mentioned above NEURO: No focal deficits LABORATORY STUDIES: Please see below MICROBIOLOGY: BCx NG ASSESSMENT: 75 y/o F with PMH of DM type II, atrial fib, HTN admitted for LLE cellulitis. PLAN: Cellulitis left lower extremity- slowly improving -WBC improved to 10.5, redness/swelling decreased mildly -BCx NG x 2 sets -Afebrile -C/w clindamycin IV -If improvement stalls, consider switching back to teflaro. Supratherapeutic INR -Holding coumadin this evening -F/u INR daily -currently no s/s of bleeding Abnormal mammogram -to be following up with Breast surgeon after discharge. Type 2 diabetes -BS elevated at 200-250 -Increased daily levemir, uncontrolled likely 2/2 to infection -ISS, FS AC/HS Fungal foot infection -moisturizing creams to soften thickened fissures. -Eucerin BID Atrial fibrillation, chronic -INR above goal of 2-3 -Holding warfarin tonight -C/w Atenolol -Daily INR's Hypertension -Stable -C/w Hydrochlorothiazide and Atenolol DVT px -Holding coumadin currently, resume 11/28/20 or 11/29/20 DISPOSITION: Likely d/c home in several days on PO if continue to improve. VS, I&O, 24H, Fishbone Vital Signs/I&O Vital Signs Date Time Temp Pulse Resp B/P (MAP) Pulse Ox O2 Delivery O2 Flow Rate FiO2 2/25/21 14:00 99.1 101 18 115/61 (79) 96 11/26/20 14:00 Room Air I&O- Last 24 Hours up to 6 AM 11/27/20 05:59 Intake Total 1610 ml Output Total 750 ml Balance 860 ml Laboratory Data 24H LABS Laboratory Tests 2 11/26/20 20:42: Bedside Glucose (Misc Panel) 277H 11/27/20 05:46: Nucleated Red Blood Cells % (auto) 0.0, Prothrombin Time 35.9H, Prothromb Time International Ratio 3.50, Anion Gap 6L, Glomerular Filtration Rate 58.2, Calcium Level 8.6L 11/27/20 11:58: Bedside Glucose (Misc Panel) 246H 11/27/20 16:54: Bedside Glucose (Misc Panel) 220H CBC/BMP Laboratory Tests 11/27/20 05:46 Microbiology Microbiology 11/24/20 Blood Culture - Preliminary, Resulted No Growth after 72 hours. All specime... 11/24/20 Respiratory Virus Panel (PCR) (OLIVIA) - Final, Complete 11/24/20 Blood Culture - Preliminary, Resulted No Growth after 72 hours. All specime... Current Medications Current Medications Medications (Trade) Dose Ordered Sig/Lizette Route PRN Reason Start Time Stop Time Status Last Admin Dose Admin Acetaminophen (Tylenol Tab) 650 mg Q6HP PRN PO PAIN / FEVER 11/26/20 09:00 11/27/20 14:54 Atenolol (Tenormin) 25 mg QHS PO 11/24/20 21:00 11/26/20 21:10 Atenolol (Tenormin) 50 mg QAM PO 11/24/20 09:00 11/27/20 08:07 Ceftaroline Fosamil 600 mg/ Dextrose 50 ml @ 50 mls/hr Q12H IV 11/24/20 14:00 11/25/20 08:59 DC 11/25/20 02:42 Clindamycin Phosphate 600 mg/ IV Miscellaneous Supplies 50 ml @ 100 mls/hr Q6H IV 11/25/20 09:00 11/27/20 14:54 Dextrose (Dextrose 50%) 25 ml ASDIRECTED PRN IV SEE LABEL COMMENTS 11/24/20 11:30 Enoxaparin Sodium (Lovenox) 40 mg DAILY SC 11/25/20 09:00 11/24/20 12:03 DC Glucagon (Glucagon) 1 mg ASDIRECTED PRN SC SEE LABEL COMMENTS 11/24/20 11:30 Glucose (Glucose) 16 GM ASDIRECTED PRN PO SEE LABEL COMMENTS 11/24/20 11:30 Home Med (Med Rec Complete!) ASDIRECTED XX 11/24/20 11:15 11/24/20 11:17 DC Hydrochlorothiazide (Hydrodiuril) 25 mg DAILY PO 11/24/20 09:00 11/27/20 08:07 Insulin Detemir (Levemir Insulin) 8 units QAM SC 11/26/20 09:00 11/27/20 08:08 Insulin Human Lispro (HumaLOG INSULIN) SEE PROTOCOL TABLE AC SC 11/24/20 12:00 11/27/20 12:14 Insulin Human Lispro (HumaLOG INSULIN) SEE PROTOCOL TABLE QHS SC 11/24/20 21:00 11/26/20 21:09 Warfarin Sodium (Coumadin) 4 mg QHS PO 11/24/20 21:00 11/24/20 23:59 DC 11/24/20 21:16 Warfarin Sodium (Coumadin) 4 mg QHS@1700 PO 11/25/20 17:00 11/26/20 17:25 Allergies Coded Allergies: Ebteuja-Zho-Ppc Reductase Inhibitor (Verified Adverse Reaction, Unknown, JOINT PAIN, 11/24/20) Hoa Lanza MD Nov 27, 2020 17:04
[2020-11-27] MEDS: VANICREAM MOISTURIZING SKIN CREAM 113GM TUBE TOP SCH (20:49)
[2020-11-27] MEDS: atenoloL 25 MG TAB PO SCH (20:50)
[2020-11-27 22:00] VITALS: BP 121/58
[2020-11-28] MEDS: CLINDAMYCIN 600 MG in IV 1 EA IV SCH ×4 (03:06→20:25)
[2020-11-28 06:00] VITALS: BP 142/75
[2020-11-28 06:00] LABS: HEMATOCRIT 30.8 % (36.0-47.0); HEMOGLOBIN 9.4 g/dl (12.0-15.5); MEAN CORPUSCULAR HEMOGLOBIN 27.1 pg (27.0-33.0); MEAN CORPUSCULAR HGB CONC 30.5 g/dl (32.0-36.5); MEAN CORPUSCULAR VOLUME 88.8 fl (80.0-96.0); PLATELET COUNT, AUTOMATED 449 10^3/uL (150-450); RED BLOOD COUNT 3.47 10^6/uL (4.00-5.40); WHITE BLOOD COUNT 11.1 10^3/uL (4.0-10.0)
[2020-11-28 06:12] LABS: INR 3.1; PROTHROMBIN TIME 32.7 SECONDS (12.5-14.3)
[2020-11-28 06:20] LABS: CALCIUM LEVEL 8.7 MG/DL (8.8-10.2); CREATININE FOR GFR 0.97 MG/DL (0.55-1.30); GLOMERULAR FILTRATION RATE 59.6 (>39); POTASSIUM SERUM 3.7 MEQ/L (3.5-5.1)
[2020-11-28] MEDS: HumaLOG INSULIN (NovoLOG) PER UNIT SC SCH ×4 (07:52→20:24)
[2020-11-28] MEDS: atenoloL 50 MG TAB PO SCH (08:47)
[2020-11-28] MEDS: LEVEMIR (INSULIN DETEMIR) 1 UNITS/0.01ML SC SCH (08:47)
[2020-11-28] MEDS: VANICREAM MOISTURIZING SKIN CREAM 113GM TUBE TOP SCH ×2 (08:48→20:25)
[2020-11-28 10:08] LABS: C REACTIVE PROTEIN QUANTITATIV 5.05 MG/DL (0.00-0.30)
[2020-11-28 14:00] VITALS: BP 114/60
--- NOTE | 2020-11-28 14:12 | IPNPDOC ---
Date Seen The patient was seen on 11/28/20. Progress Note SUBJECTIVE: Cellulitis further improved with areas of the dorsum of left foot now whiter in color, less erythema on anterior jalloh but still significant erythema on left calf and around digits of left foot. INR still elevated, holding tonight's warfarin dose. Denies fevers, chills, n/v/d. OBJECTIVE: PHYSICAL EXAMINATION: VITAL SIGNS: Please see below GENERAL APPEARANCE: NAD, resting in bedside chair HEENT: AT/NC, PERRLA, EOM intact LUNGS: CTAB, no W/R/R HEART: Without murmurs, rubs or gallops. ABDOMEN: Soft, nontender, no masses. BS + in 4 quad EXTREMITIES: LLE swelling/redness improving; however, left foot still red, swollen > right, less edema. No cyanosis or clubbing INTEGUMENTARY: cracking of right heel, very dry skin b/l lower ext, improving swelling as mentioned above NEURO: No focal deficits LABORATORY STUDIES: Please see below MICROBIOLOGY: BCx NG ASSESSMENT: 75 y/o F with PMH of DM type II, atrial fib, HTN admitted for LLE cellulitis. PLAN: Cellulitis left lower extremity- slowly improving -WBC 11, redness/swelling decreased further -BCx NG x 2 sets -Afebrile -C/w clindamycin IV -If improvement stalls, consider switching back to teflaro. Supratherapeutic INR -INR 3.1 -Holding coumadin this evening -F/u INR daily -currently no s/s of bleeding Abnormal mammogram -to be following up with Breast surgeon after discharge. Type 2 diabetes -BS elevated at 200-250 -C/w levemir, uncontrolled likely 2/2 to infection -ISS, FS AC/HS Fungal foot infection -moisturizing creams to soften thickened fissures. -Eucerin BID Atrial fibrillation, chronic -INR above goal of 2-3 -Holding warfarin tonight -C/w Atenolol -Daily INR's Hypertension -Stable -C/w Hydrochlorothiazide and Atenolol DVT px -Holding coumadin currently, resume 11/28/20 or 11/29/20 DISPOSITION: Likely d/c home in several days on PO if continue to improve. VS, I&O, 24H, Fishbone Vital Signs/I&O Vital Signs Date Time Temp Pulse Resp B/P (MAP) Pulse Ox O2 Delivery O2 Flow Rate FiO2 11/28/20 08:47 76 140/70 11/28/20 06:00 96.6 20 99 11/26/20 14:00 Room Air I&O- Last 24 Hours up to 6 AM 11/28/20 06:00 Intake Total 1430 ml Output Total 800 ml Balance 630 ml Laboratory Data 24H LABS Laboratory Tests 2 11/27/20 16:54: Bedside Glucose (Misc Panel) 220H 11/27/20 20:34: Bedside Glucose (Misc Panel) 284H 11/28/20 05:38: Nucleated Red Blood Cells % (auto) 0.0, Prothrombin Time 32.7H, Prothromb Time International Ratio 3.10, Anion Gap 6L, Glomerular Filtration Rate 59.6, Calcium Level 8.7L, C-Reactive Protein, Quantitative 5.05H 11/28/20 11:56: Bedside Glucose (Misc Panel) 245H CBC/BMP Laboratory Tests 11/28/20 05:38 Microbiology Microbiology 11/24/20 Blood Culture - Preliminary, Resulted No Growth after 72 hours. All specime... 11/24/20 Respiratory Virus Panel (PCR) (OLIVIA) - Final, Complete 11/24/20 Blood Culture - Preliminary, Resulted No Growth after 72 hours. All specime... Current Medications Current Medications Medications (Trade) Dose Ordered Sig/Lizette Route PRN Reason Start Time Stop Time Status Last Admin Dose Admin Acetaminophen (Tylenol Tab) 650 mg Q6HP PRN PO PAIN / FEVER 11/26/20 09:00 11/27/20 20:56 Atenolol (Tenormin) 25 mg QHS PO 11/24/20 21:00 11/27/20 20:50 Atenolol (Tenormin) 50 mg QAM PO 11/24/20 09:00 11/28/20 08:47 Ceftaroline Fosamil 600 mg/ Dextrose 50 ml @ 50 mls/hr Q12H IV 11/24/20 14:00 11/25/20 08:59 DC 11/25/20 02:42 Clindamycin Phosphate 600 mg/ IV Miscellaneous Supplies 50 ml @ 100 mls/hr Q6H IV 11/25/20 09:00 11/28/20 08:48 Dextrose (Dextrose 50%) 25 ml ASDIRECTED PRN IV SEE LABEL COMMENTS 11/24/20 11:30 Emollient Cream (Vanicream) bilateral lower ext BID TOP 11/27/20 21:00 11/28/20 08:48 Enoxaparin Sodium (Lovenox) 40 mg DAILY SC 11/25/20 09:00 11/24/20 12:03 DC Glucagon (Glucagon) 1 mg ASDIRECTED PRN SC SEE LABEL COMMENTS 11/24/20 11:30 Glucose (Glucose) 16 GM ASDIRECTED PRN PO SEE LABEL COMMENTS 11/24/20 11:30 Home Med (Med Rec Complete!) ASDIRECTED XX 11/24/20 11:15 11/24/20 11:17 DC Hydrochlorothiazide (Hydrodiuril) 25 mg DAILY PO 11/24/20 09:00 11/28/20 08:47 Insulin Detemir (Levemir Insulin) 8 units QAM SC 11/26/20 09:00 11/27/20 17:04 DC 11/27/20 08:08 Insulin Detemir (Levemir Insulin) 15 units QAM SC 11/28/20 09:00 11/28/20 08:47 Insulin Human Lispro (HumaLOG INSULIN) SEE PROTOCOL TABLE AC SC 11/24/20 12:00 11/28/20 12:49 Insulin Human Lispro (HumaLOG INSULIN) SEE PROTOCOL TABLE QHS SC 11/24/20 21:00 11/27/20 20:50 Warfarin Sodium (Coumadin) 4 mg QHS PO 11/24/20 21:00 11/24/20 23:59 DC 11/24/20 21:16 Warfarin Sodium (Coumadin) 4 mg QHS@1700 PO 11/25/20 17:00 11/27/20 17:01 DC 11/26/20 17:25 Allergies Coded Allergies: Thakgqq-Kdy-Vdb Reductase Inhibitor (Verified Adverse Reaction, Unknown, JOINT PAIN, 11/24/20) Hoa Lanza MD Nov 28, 2020 14:12
[2020-11-28] MEDS: atenoloL 25 MG TAB PO SCH (20:24)
[2020-11-28] MEDS: ACETAMINOPHEN TAB 650MG DOSE (2X325MG) PO PRN (20:25)
[2020-11-28 22:00] VITALS: BP 149/80
[2020-11-29] MEDS: CLINDAMYCIN 600 MG in IV 1 EA IV SCH ×5 (03:18→21:14)
[2020-11-29 06:00] VITALS: BP 102/56
[2020-11-29 06:28] LABS: HEMATOCRIT 29.8 % (36.0-47.0); HEMOGLOBIN 8.9 g/dl (12.0-15.5); MEAN CORPUSCULAR HEMOGLOBIN 26.6 pg (27.0-33.0); MEAN CORPUSCULAR HGB CONC 29.9 g/dl (32.0-36.5); MEAN CORPUSCULAR VOLUME 89.2 fl (80.0-96.0); PLATELET COUNT, AUTOMATED 457 10^3/uL (150-450); RED BLOOD COUNT 3.34 10^6/uL (4.00-5.40); WHITE BLOOD COUNT 9.9 10^3/uL (4.0-10.0)
[2020-11-29 06:46] LABS: INR 2.64; PROTHROMBIN TIME 28.8 SECONDS (12.5-14.3)
[2020-11-29 06:54] LABS: BLOOD UREA NITROGEN 24 MG/DL (7-18); CALCIUM LEVEL 8.7 MG/DL (8.8-10.2); CARBON DIOXIDE LEVEL 27 MEQ/L (21-32); CHLORIDE LEVEL 107 MEQ/L (98-107); CREATININE FOR GFR 0.94 MG/DL (0.55-1.30); GLOMERULAR FILTRATION RATE > 60.0 (>39); GLUCOSE, FASTING 245 MG/DL (70-100); POTASSIUM SERUM 3.9 MEQ/L (3.5-5.1); SODIUM LEVEL 140 MEQ/L (136-145)
[2020-11-29] MEDS: HumaLOG INSULIN (NovoLOG) PER UNIT SC SCH ×4 (08:37→21:13)
[2020-11-29] MEDS: LEVEMIR (INSULIN DETEMIR) 1 UNITS/0.01ML SC SCH (08:37)
[2020-11-29] MEDS: VANICREAM MOISTURIZING SKIN CREAM 113GM TUBE TOP SCH ×2 (08:38→21:13)
[2020-11-29] MEDS: atenoloL 50 MG TAB PO SCH (08:38)
[2020-11-29 14:00] VITALS: BP 120/60
[2020-11-29] MEDS: ACETAMINOPHEN TAB 650MG DOSE (2X325MG) PO PRN ×2 (15:14→21:14)
--- NOTE | 2020-11-29 15:40 | IPNPDOC ---
Date Seen The patient was seen on 11/29/20. Progress Note SUBJECTIVE: Cellulitis appears further improved improved, swelling decreased. INR therapeutic, resuming coumadin. Inflammatory markers decreasing but still elevated. Denies fevers, chills, n/v/d. OBJECTIVE: PHYSICAL EXAMINATION: VITAL SIGNS: Please see below GENERAL APPEARANCE: NAD, resting in bedside chair HEENT: AT/NC, PERRLA, EOM intact LUNGS: CTAB, no W/R/R HEART: Without murmurs, rubs or gallops. ABDOMEN: Soft, nontender, no masses. BS + in 4 quad EXTREMITIES: decreased LLE swelling/redness- slowly improving; however, left foot still red, swollen > right, less edema. No cyanosis or clubbing INTEGUMENTARY: cracking of right heel, very dry skin b/l lower ext, improving swelling as mentioned above NEURO: No focal deficits LABORATORY STUDIES: Please see below MICROBIOLOGY: BCx NG ASSESSMENT: 75 y/o F with PMH of DM type II, atrial fib, HTN admitted for LLE cellulitis. PLAN: Cellulitis left lower extremity- slowly improving -WBC wnl, redness/swelling decreased further -BCx NG x 2 sets -Afebrile -C/w clindamycin IV -Anticipating discharge 11/30/20 with PO abx if further improved then Supratherapeutic INR- resolved -INR therapeutic -F/u INR daily -currently no s/s of bleeding -Resume coumadin at 3.5 mg nightly Abnormal mammogram -to be following up with Breast surgeon after discharge. Type 2 diabetes -BS elevated at 200-250 -C/w levemir, uncontrolled likely 2/2 to infection -ISS, FS AC/HS Fungal foot infection -moisturizing creams to soften thickened fissures. -Eucerin BID Atrial fibrillation, chronic -INR above goal of 2-3 -C/w Atenolol, coumadin 3.5 mg Po daily -Daily INR's Hypertension -Stable -C/w Hydrochlorothiazide and Atenolol DVT px -coumadin DISPOSITION: Likely d/c home in the AM if even more improved by 11/30/20. VS, I&O, 24H, Fishbone Vital Signs/I&O Vital Signs Date Time Temp Pulse Resp B/P (MAP) Pulse Ox O2 Delivery O2 Flow Rate FiO2 11/29/20 14:00 97.5 86 20 120/60 (80) 96 Room Air I&O- Last 24 Hours up to 6 AM 11/29/20 06:00 Intake Total 2270 ml Output Total 1950 ml Balance 320 ml Laboratory Data 24H LABS Laboratory Tests 2 11/28/20 16:39: Bedside Glucose (Misc Panel) 297H 11/28/20 19:37: Bedside Glucose (Misc Panel) 267H 11/29/20 06:05: Nucleated Red Blood Cells % (auto) 0.0, Prothrombin Time 28.8H, Prothromb Time International Ratio 2.64, Anion Gap 6L, Glomerular Filtration Rate > 60.0, Calcium Level 8.7L CBC/BMP Laboratory Tests 11/29/20 06:05 Microbiology Microbiology 11/24/20 Blood Culture - Final, Complete NO GROWTH AFTER 5 DAYS 11/24/20 Respiratory Virus Panel (PCR) (OLIVIA) - Final, Complete 11/24/20 Blood Culture - Final, Complete NO GROWTH AFTER 5 DAYS Current Medications Current Medications Medications (Trade) Dose Ordered Sig/Lizette Route PRN Reason Start Time Stop Time Status Last Admin Dose Admin Acetaminophen (Tylenol Tab) 650 mg Q6HP PRN PO PAIN / FEVER 11/26/20 09:00 11/29/20 15:14 Atenolol (Tenormin) 25 mg QHS PO 11/24/20 21:00 11/28/20 20:24 Atenolol (Tenormin) 50 mg QAM PO 11/24/20 09:00 11/29/20 08:38 Ceftaroline Fosamil 600 mg/ Dextrose 50 ml @ 50 mls/hr Q12H IV 11/24/20 14:00 11/25/20 08:59 DC 11/25/20 02:42 Clindamycin Phosphate 600 mg/ IV Miscellaneous Supplies 50 ml @ 100 mls/hr Q6H IV 11/25/20 09:00 11/29/20 15:15 Dextrose (Dextrose 50%) 25 ml ASDIRECTED PRN IV SEE LABEL COMMENTS 11/24/20 11:30 Emollient Cream (Vanicream) bilateral lower ext BID TOP 11/27/20 21:00 11/29/20 08:38 Enoxaparin Sodium (Lovenox) 40 mg DAILY SC 11/25/20 09:00 11/24/20 12:03 DC Glucagon (Glucagon) 1 mg ASDIRECTED PRN SC SEE LABEL COMMENTS 11/24/20 11:30 Glucose (Glucose) 16 GM ASDIRECTED PRN PO SEE LABEL COMMENTS 11/24/20 11:30 Home Med (Med Rec Complete!) ASDIRECTED XX 11/24/20 11:15 11/24/20 11:17 DC Hydrochlorothiazide (Hydrodiuril) 25 mg DAILY PO 11/24/20 09:00 11/29/20 08:38 Insulin Detemir (Levemir Insulin) 8 units QAM SC 11/26/20 09:00 11/27/20 17:04 DC 11/27/20 08:08 Insulin Detemir (Levemir Insulin) 15 units QAM SC 11/28/20 09:00 11/29/20 08:37 Insulin Human Lispro (HumaLOG INSULIN) SEE PROTOCOL TABLE AC SC 11/24/20 12:00 11/29/20 08:37 Insulin Human Lispro (HumaLOG INSULIN) SEE PROTOCOL TABLE QHS SC 11/24/20 21:00 11/28/20 20:24 Warfarin Sodium (Coumadin) 4 mg QHS PO 11/24/20 21:00 11/24/20 23:59 DC 11/24/20 21:16 Warfarin Sodium (Coumadin) 4 mg QHS@1700 PO 11/25/20 17:00 11/27/20 17:01 DC 11/26/20 17:25 Allergies Coded Allergies: Pfuqvln-Cpa-Jiv Reductase Inhibitor (Verified Adverse Reaction, Unknown, JOINT PAIN, 11/24/20) Hoa Lanza MD Nov 29, 2020 15:40
[2020-11-29] MEDS ORDERED: WARFARIN SOD 3MG TAB PO ONE (17:00)
[2020-11-29] MEDS ORDERED: WARFARIN SOD 2MG TAB PO ONE (17:00)
[2020-11-29] MEDS: atenoloL 25 MG TAB PO SCH (21:12)
[2020-11-29 22:00] VITALS: BP 117/59
[2020-11-30] MEDS: CLINDAMYCIN 600 MG in IV 1 EA IV SCH ×2 (03:22→08:24)
[2020-11-30 06:00] VITALS: BP 145/71
[2020-11-30 06:16] LABS: HEMATOCRIT 29.3 % (36.0-47.0); MEAN CORPUSCULAR HEMOGLOBIN 27.1 pg (27.0-33.0); MEAN CORPUSCULAR HGB CONC 30.7 g/dl (32.0-36.5); MEAN CORPUSCULAR VOLUME 88.3 fl (80.0-96.0); PLATELET COUNT, AUTOMATED 456 10^3/uL (150-450); RED BLOOD COUNT 3.32 10^6/uL (4.00-5.40); WHITE BLOOD COUNT 8.6 10^3/uL (4.0-10.0)
[2020-11-30 06:26] LABS: INR 2.1
[2020-11-30 06:44] LABS: BLOOD UREA NITROGEN 19 MG/DL (7-18); CALCIUM LEVEL 8.8 MG/DL (8.8-10.2); CARBON DIOXIDE LEVEL 27 MEQ/L (21-32); CHLORIDE LEVEL 106 MEQ/L (98-107); GLOMERULAR FILTRATION RATE > 60.0 (>39); GLUCOSE, FASTING 219 MG/DL (70-100); POTASSIUM SERUM 3.9 MEQ/L (3.5-5.1); SODIUM LEVEL 139 MEQ/L (136-145)
[2020-11-30 08:22] VITALS: BP 145/73
[2020-11-30] MEDS: LEVEMIR (INSULIN DETEMIR) 1 UNITS/0.01ML SC SCH ×2 (08:22→08:23)
[2020-11-30] MEDS: atenoloL 50 MG TAB PO SCH (08:22)
[2020-11-30] MEDS: HumaLOG INSULIN (NovoLOG) PER UNIT SC SCH (08:23)
[2020-11-30] MEDS ORDERED: CLIN150C15 PO (08:24)
[2020-11-30] MEDS: VANICREAM MOISTURIZING SKIN CREAM 113GM TUBE TOP SCH (08:24)
[2020-11-30] MEDS ORDERED: ACET1TAB55 PO (08:24)
[2020-11-30] MEDS ORDERED: PROB1CAP10 PO (08:24)
--- NOTE | 2020-11-30 11:27 | DS.PDOC ---
"Discharge Summary General Date of Admission Nov 24, 2020 at 11:27 Date of Discharge 11/30/20 Attending Physician: Hoa Lanza MD Discharge Summary HISTORY OF PRESENT ILLNESS: Patient is a 75-year-old F with PMH of DM type II, chronic atrial fib on AC, abnormal mammogram who presented with cellulitis of the left lower extremity. She had failed to respond to a week long course of PO keflex , so she was admitted for intravenous antibiotics. The redness in the leg has extended de spite the oral antibiotics. She has no fever, chills, or feelings of weakness. She had an ultrasound of that leg done a few days ago, that was negative for deep vein thrombosis. She has had some ongoing problems with cracked, fissured left foot, diagnosed with a fungal rash at [facility] on 08/22. She had no past history of cellulitis or other significant infections. HOSPITAL COURSE: Patient was initially started on teflaro and later changed to IV clindamycin. She has had very slow but definite improvement of the LLE. She was cleared for home by PT. By 11/30/20 patient was much improved. Decision was made to discharge home with continued 7 days of PO clindamycin, probiotic and close follow up with PCP after discharge. She denied chest pain, shortness of breath, fevers, chills, n/v/d, LLE pain on discharge. PAST MEDICAL HISTORY: 1. Type 2 diabetes mellitus 2. Hypertensive heart disease. 3. Atrial fibrillation on chronic anticoagulant therapy. 4. She recently had an abnormal mammogram of the left breast, approximate category 4 mammogram for which she is supposed to see the breast surgeon, Dr. Rodarte on 11/26. | SOCIAL HISTORY: , nonsmoker, no alcohol. ALLERGIES: STATINS. FAMILY HISTORY: Noncontributory. DISCHARGE MEDICATIONS: Please see below PHYSICAL EXAMINATION: VITAL SIGNS: Please see below GENERAL APPEARANCE: NAD, resting in bedside chair HEENT: AT/NC, PERRLA, EOM intact LUNGS: CTAB, no W/R/R HEART: Without murmurs, rubs or gallops. ABDOMEN: Soft, nontender, no masses. BS + in 4 quad EXTREMITIES: decreased LLE swelling/redness- slowly improving; however, left foot still red, swollen > right, less edema. No cyanosis or clubbing INTEGUMENTARY: cracking of right heel, very dry skin b/l lower ext, improving swelling as mentioned above NEURO: No focal deficits LABORATORY STUDIES: Please see below MICROBIOLOGY: BCx NG ASSESSMENT: 75 y/o F with PMH of DM type II, atrial fib, HTN admitted for LLE cellulitis. PLAN: Cellulitis left lower extremity- slowly improving -WBC wnl, redness/swelling decreased further -BCx NG x 2 sets -Afebrile -C/w clindamycin PO x 7 days, probiotic. Supratherapeutic INR- resolved -INR therapeutic -C/w home dose coumadin. -F/u INR as o/p -currently no s/s of bleeding Abnormal mammogram -to be following up with Breast surgeon after discharge. Type 2 diabetes -C/w home regimen, FS AC/HS Fungal foot infection -moisturizing creams to soften thickened fissures. Atrial fibrillation, chronic -INR above goal of 2-3 -C/w Atenolol, coumadin Hypertension -Stable -C/w Hydrochlorothiazide and Atenolol DVT px -coumadin DISPOSITION: D/c home today with f/u with PCP TIME SPENT ON DISCHARGE: 35 minutes. Vital Signs/I&Os Vital Signs Date Time Temp Pulse Resp B/P (MAP) Pulse Ox O2 Delivery O2 Flow Rate FiO2 11/30/20 08:22 90 145/73 11/30/20 06:00 97.6 16 97 Room Air I&O- Last 24 Hours up to 6 AM 11/30/20 06:00 Intake Total 650 ml Output Total 1100 ml Balance -450 ml Laboratory Data Labs 24H Laboratory Tests 2 11/29/20 16:40: Bedside Glucose (Misc Panel) 276H 11/29/20 20:27: Bedside Glucose (Misc Panel) 272H 11/30/20 05:48: Nucleated Red Blood Cells % (auto) 0.0, Prothrombin Time 24.0H, Prothromb Time International Ratio 2.10, Anion Gap 6L, Glomerular Filtration Rate > 60.0, Calcium Level 8.8 CBC/BMP Laboratory Tests 11/30/20 05:48 FSBS Laboratory Tests Test 11/29/20 16:40 11/29/20 20:27 Range/Units Bedside Glucose (Misc Panel) 276 272 83-110 MG/DL Microbiology Microbiology 11/24/20 Blood Culture - Final, Complete NO GROWTH AFTER 5 DAYS 11/24/20 Respiratory Virus Panel (PCR) (OLIVIA) - Final, Complete 11/24/20 Blood Culture - Final, Complete NO GROWTH AFTER 5 DAYS Discharge Medications Scheduled Atenolol (Atenolol) 50 Mg Tablet, 50 MG PO QAM, (Reported) Atenolol (Atenolol) 50 Mg Tablet, 25 MG PO QHS, (Reported) Clindamycin Hcl (Clindamycin HCl) 150 Mg Capsule, 300 MG PO QID Glipizide (Glipizide ER) 5 Mg Tab.er.24, 5 MG PO TID, (Reported) Hydrochlorothiazide (Hydrochlorothiazide) 25 Mg Tablet, 25 MG PO DAILY, (Reported) Lactobacillus Acidophilus (Probiotic Acidophilus) 1.5 Mg Capsule, 1 CAP PO BIDWM Metformin HCl (Metformin HCl) 850 Mg Tablet, 850 MG PO TID, (Reported) Warfarin Sodium (Jantoven) 4 Mg Tablet, 4 MG PO QHS, (Reported) Scheduled PRN Acetaminophen (Acetaminophen) 325 Mg Tablet, 650 MG PO Q8HP PRN for PAIN / FEVER Allergies Coded Allergies: Wvatcnt-Syb-Xfg Reductase Inhibitor (Verified Adverse Reaction, Unknown, JOINT PAIN, 11/24/20) Hoa Lanza MD Nov 30, 2020 11:27"
== END 2020-11-30 10:51 | disposition home or self-care (01) | DRG 603 ==
LOC: M ED 09:43 → M ED INP 11:27 → M MSPAV 13:45
PROVIDERS: ADMIT Family Medicine; ATTEND Internal Medicine
DX: L03.116 Cellulitis of left lower limb (principal); I48.20 Chronic atrial fibrillation, unspecified; E11.9 Type 2 diabetes mellitus without complications; I11.9 Hypertensive heart disease without heart failure; Z79.01 Long term (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 of anticoagulants; B35.3 Tinea pedis; R92.8 Other abnormal and inconclusive findings on diagnostic imaging of breast; Z79.899 Other long term (current) drug therapy; Z88.8 Allergy status to other drugs, medicaments and biological substances

== ENCOUNTER → 2020-12-23 | Outpatient (CLI) | payer MEDICARE ==
[~2020-12-23] MED LIST changes: +ACET1TAB55 PO; +CEPH500C PO; +CLIN150C15 PO; +PROB1CAP10 PO
--- NOTE | 2020-12-23 15:22 | REP ---
INDICATION: R92.8 ABN MAMMO LT BREAST,POST STEREOTACTIC BIOPSY. Marker clip placement views. COMPARISON: Comparison mammography 06 November 2020. TECHNIQUE: Craniocaudal and mediolateral oblique views of the left breast are obtained. This mammogram was interpreted with the aid of an FDA-approved computer-aided detection system. FINDINGS: Cc, laterally exaggerated CC, and true mL and MLO views of the left breast are obtained. These demonstrate the needle biopsy marker clip in good position at this site where previous mammography showed the poly more fixed microcyst calcific grouping. Calcifications are no longer present. There is no evidence of hematoma. IMPRESSION: Marker clip in good position in the left breast. <Electronically signed by Enoc Galindo > 12/23/20 [id number]
--- NOTE | 2020-12-23 15:51 | REP ---
INDICATION: R92.8 ABN MAMMO LT BREAST,STEREOTACTIC BIOPSY. COMPARISON: Comparison mammography November 06, 2020 and October 28, 2020.. TECHNIQUE: Single specimen radiograph. Stereotactic needle biopsy specimen. FINDINGS: Specimen radiography demonstrates the micro calcific target grouping in the central to of the retrieved stereotactic needle biopsy specimens. IMPRESSION: Specimen radiography demonstrates microcalcifications from the target grouping. It may be that all of the calcifications are removed. <Electronically signed by Enoc Galindo > 12/23/20 1502
--- NOTE | 2020-12-23 16:14 | REP ---
INDICATION: R92.8 ABN MAMMO LT BREAST,STEREOTACTIC BIOPSY. COMPARISON: None. TECHNIQUE: This procedure is performed by Emilia Burt [facility], under the direct supervision of Dr. Galindo. The risks and benefits of the procedure were explained to the patient and informed consent was obtained both verbally and written. Directly prior to the start of the procedure, a formal timeout was done in the procedure room. The cranial caudal approach was utilized on the upright table. The left breast microcalcification's were localized using mammographic guidance. The skin was prepped and draped in a sterile fashion. Three ml of buffered lidocaine was used as a local anesthetic. FINDINGS: A 10 gauge vacuum assisted mammotome biopsy device was inserted and advanced into the breast microcalcification's and 6 core biopsy samples were obtained. A marker clip was placed at the biopsy site. The patient tolerated the procedure well and there were no immediate complications. After the appropriate amount of monitored convalescence the patient was discharged from the department. IMPRESSION: Stereotactic guided left breast biopsy for microcalcification's. <Electronically signed by Emilia Burt > 12/23/20 1551 <Electronically signed by Enoc Galindo > 12/23/20 1610
[2020-12-23 16:38] VITALS: BP 132/60
== END ==
LOC: M WHCPRO 12:35
PROVIDERS: ATTEND Surgery
DX: R92.8 Other abnormal and inconclusive findings on diagnostic imaging of breast (principal); Z88.8 Allergy status to other drugs, medicaments and biological substances

== ENCOUNTER → 2021-06-22 | Outpatient (CLI) | payer MEDICARE ==
[~2021-06-22] MED LIST changes: -CLIN150C15 PO; +CLIN150C17 PO
--- NOTE | 2021-06-25 16:42 | REPMRS ---
Patient History The patient states she has not had a clinical breast exam in over a year. Patient is postmenopausal. Family history of breast cancer at age 50 or over in mother, endometrial cancer at age 50 or over in paternal aunt. Benign stereotatic loc for ea lesion. of the left breast, December 23, 2020. Benign radio exam breast specimen. of the left breast, December 23, 2020. Benign stereotactic core biopsy of the right breast, March 26, 2009. Diagnostic per Dr. Watson 6 month f/u to stereo biopsy performed December 2020 for calcifications Diagnostic Unilateral Mammo: Left Breast - June 22, 2021 - Exam #: [id number] CC and MLO view(s) were taken of the left breast. Technologist: Brissa Blackwell, Technologist Prior study comparison: December 23, 2020, left breast diagnostic unilateral mammo performed at [facility] and [facility]. November 06, 2020, left breast digital mammo diagnostic unilateral, performed at [facility]. October 28, 2020, bilateral digital mammo screening bilat, performed at [facility]. FINDINGS: There are scattered fibroglandular densities. There has been no change in the appearance of the left breast parenchyma in the interval since the prior examination. No mass, architectural distortion, or microcalcific grouping has developed. The previously placed needle biopsy marker clip device is again noted in the upper outer quadrant where prior mammography showed microcalcifications. No suspicious microcalcifications are visible. No suspicious finding. 3-D tomosynthesis shows no additional findings. Assessment: BI-RADS/ACR category 2 mammogram. Benign Findings. Recommendation Routine screening mammogram of both breasts in 1 year. This patient's [facility] Lifetime Breast Cancer RIsk is estimated at 5.1 %. This mammogram was interpreted with the aid of an FDA-approved computer-aided dectection system. Electronically Signed By: Sarkis Celeste DO 06/25/21 2553
== END ==
LOC: M WHC 09:33
PROVIDERS: ATTEND Surgery
DX: R92.8 Other abnormal and inconclusive findings on diagnostic imaging of breast (principal); Z78.0 Asymptomatic menopausal state; R92.1 Mammographic calcification found on diagnostic imaging of breast
CPT/HCPCS: 77065; G0279

== ENCOUNTER → 2021-07-08 | Outpatient (CLI) | payer MEDICARE ==
--- NOTE | 2021-07-08 12:18 | REP ---
INDICATION: THYROID NODULE. COMPARISON: 07/07/2020 TECHNIQUE: Real-time sonographic evaluation of the thyroid gland with Doppler FINDINGS: The right lobe of the thyroid gland measures 5.9 x 3.8 x 2.8 cm and the left lobe measures 5.9 x 2.7 x 3.2 cm. The isthmus measures 6.6 mm. There is a solid nodule, complex cystic/solid nodule, and an anechoic structure seen in the right lobe those 3 are completely unchanged from the prior exam. The solid nodule has a maximal dimension of 2.6 cm, the complex nodule has a maximal dimension of 3.6 cm, and the cyst has a maximal dimension of 2 cm. In the left lobe of the thyroid gland note is again made of 1 solid, 1 complex, and 1 nearly completely anechoic area all unchanged. The predominantly solid nodule is a maximal dimension of 3.4 cm, the complex cystic and solid midpole nodule has a maximal dimension of 1.4 cm and the predominantly cystic nodule has a maximal dimension of 1.4 cm. In the isthmus there is a 6 mm sized cyst which is also unchanged. IMPRESSION: Multiple solid, complex, and cystic structures in the thyroid gland, as described above, which have not changed significantly compared to the prior exam. <Electronically signed by Sarkis Celeste > 07/08/21 [id number]
== END ==
LOC: M RAD 10:29
PROVIDERS: ATTEND Surgery
DX: E04.1 Nontoxic single thyroid nodule (principal)

== ENCOUNTER → 2021-12-24 | Outpatient (REF) | payer MEDICARE | LOC: M SFHCDERM 17:34 | PROVIDERS: ATTEND Nurse Practitioner Family | DX: C44.329 Squamous cell carcinoma of skin of other parts of face (principal) ==

== ENCOUNTER → 2022-07-07 | Outpatient (CLI) | payer MEDICARE | LOC: M RAD 10:09 | PROVIDERS: ATTEND Physician Assistant Surgical | DX: E04.1 Nontoxic single thyroid nodule (principal) ==

== ENCOUNTER → 2022-07-26 | Outpatient (CLI) | payer MEDICARE | LOC: M WHC 10:28 | PROVIDERS: ATTEND Family Medicine | DX: Z12.31 Encounter for screening mammogram for malignant neoplasm of breast (principal) ==

== ENCOUNTER → 2022-08-02 | Outpatient (CLI) | payer MEDICARE ==
[~2022-08-02] MED LIST changes: +LIDOCAINE 1% MDV 20ML VIAL As Ordered ONE
[2022-08-02 12:08] VITALS: BP 153/78
== END ==
LOC: M IRPRO 10:56
PROVIDERS: ATTEND Physician Assistant Surgical
DX: E04.1 Nontoxic single thyroid nodule (principal)

== ENCOUNTER → 2023-02-08 | Outpatient (CLI) | payer MEDICARE ==
[~2023-02-08] MED LIST changes: -LIDOCAINE 1% MDV 20ML VIAL As Ordered ONE
== END ==
LOC: M RAD 11:45
PROVIDERS: ATTEND Surgery
DX: E04.1 Nontoxic single thyroid nodule (principal)

== ENCOUNTER → 2023-08-16 | Outpatient (CLI) | payer MEDICARE | LOC: M WHC 10:31 | PROVIDERS: ATTEND Family Medicine | DX: Z12.31 Encounter for screening mammogram for malignant neoplasm of breast (principal) ==

== ENCOUNTER → 2023-11-01 | Outpatient (CLI) | payer MEDICARE | LOC: M CARPUL 11:02 | PROVIDERS: ATTEND Family Medicine | DX: R01.1 Cardiac murmur, unspecified (principal) ==

== ENCOUNTER → 2024-02-02 | Outpatient (CLI) | payer MEDICARE | LOC: M RAD 09:20 | PROVIDERS: ATTEND Surgery | DX: E04.2 Nontoxic multinodular goiter (principal) ==

== ENCOUNTER → 2024-10-01 | Outpatient (CLI) | payer MEDICARE | LOC: M WHC 09:31 | PROVIDERS: ATTEND Family Medicine | DX: Z12.31 Encounter for screening mammogram for malignant neoplasm of breast (principal) ==

== ENCOUNTER → 2024-12-28 | Outpatient (REF) | payer MEDICARE, MEDICAID ==
[~2024-12-28] MED LIST changes: +GLIP-318 PO; -GLIP5TAB20 PO
== END ==
LOC: M LAB REF 12:40
PROVIDERS: ATTEND Physician Assistant Medical
DX: I50.30 Unspecified diastolic (congestive) heart failure (principal)

== ENCOUNTER → 2025-01-04 | Outpatient (REF) | payer MEDICARE | LOC: M LAB REF 12:17 | PROVIDERS: ATTEND Physician Assistant Medical | DX: I50.32 Chronic diastolic (congestive) heart failure (principal) ==

== ENCOUNTER → 2025-01-17 | Outpatient (REF) | payer MEDICARE, MEDICAID | LOC: M LAB REF 13:48 | PROVIDERS: ATTEND Family Medicine | DX: I50.32 Chronic diastolic (congestive) heart failure (principal) ==

== ENCOUNTER → 2025-02-14 | Outpatient (REF) | payer MEDICARE ==
[2025-02-14 15:03] LABS: FERRITIN 21.9 NG/ML (7.3-270.7)
== END ==
LOC: M LAB REF 13:26
PROVIDERS: ATTEND Family Medicine
DX: D64.9 Anemia, unspecified (principal)

== ENCOUNTER → 2025-02-15 | Outpatient (CLI) | payer MEDICARE | LOC: M RAD 11:36 | PROVIDERS: ATTEND Surgery | DX: E04.2 Nontoxic multinodular goiter (principal) ==

== ENCOUNTER → 2025-04-29 | Outpatient (REF) | payer MEDICARE, MEDICAID ==
[~2025-04-29] MED LIST changes: +ALDA25TA2 PO; +CLOT1CRE56 TOP; +ELIQ5TAB PO; +FARX1TAB3 PO; +FURO20TA2 PO; +LOSA100T46 PO; +METF500T13 PO; +OFLO5DRO; +ROSU5TAB49 PO; +TORS20TA2 PO; +TRUL10IN SQ; +UREA20CR4 TOP
[2025-04-29 15:53] LABS: BASO # 0.0 10^3/uL (0.0-0.2); BASO % 0.5 % (0.0-1.0); EOS # 0.1 10^3/uL (0.0-0.5); EOS % 1.2 % (0.0-3.0); LYMPH # 0.9 10^3/uL (1.5-5.0); LYMPH % 10.6 % (24.0-44.0); MONO # 0.7 10^3/uL (0.0-0.8); MONO % 8.0 % (2.0-8.0); NEUTROPHILS # 6.4 10^3/uL (1.5-8.5); NEUTROPHILS % 79.2 % (36.0-66.0); PLATELET COUNT, AUTOMATED 425 10^3/uL (150-450)
[2025-04-29 16:05] LABS: ESTIMATED AVERAGE GLUCOSE 189.0 MG/DL (60-110)
[2025-04-29 16:21] LABS: ALT/SGPT 11.0 U/L (7.0-40); AST/SGOT 15.0 U/L (<34); CALCIUM LEVEL 8.8 MG/DL (8.3-10.6); CARBON DIOXIDE LEVEL 27.0 MMOL/L (20-31); CHLORIDE LEVEL 102.0 MMOL/L (98-107); CREATININE FOR GFR 1.3 MG/DL (0.55-1.30); GLOMERULAR FILTRATION RATE 41.6 (>32); POTASSIUM SERUM 5.0 MMOL/L (3.5-5.1); SODIUM LEVEL 142.0 MMOL/L (136-145)
== END ==
LOC: M LAB REF 14:39
PROVIDERS: ATTEND Family Medicine
DX: I50.32 Chronic diastolic (congestive) heart failure (principal); E11.65 Type 2 diabetes mellitus with hyperglycemia; Z79.01 Long term (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 of anticoagulants

== ENCOUNTER → 2025-05-01 | Outpatient (REF) | payer MEDICARE, MEDICAID ==
[2025-05-01 14:26] LABS: IRON (FE) 20.0 UG/DL (50-170); PERCENT SATURATION 5.3 % (13.2-45.0)
[2025-05-01 14:31] LABS: VITAMIN B12 LEVEL 507.0 PG/ML (211-911)
[2025-05-01 15:06] LABS: STABLE ALKPHOS 61.0 U/L
[2025-05-01 15:07] LABS: LABILE ALKPHOS 89.0 U/L
[2025-05-01 15:08] LABS: % LABILE ALKALINE PHOSPHATASE 59.3 %
== END ==
LOC: M LAB REF 13:38
PROVIDERS: ATTEND Family Medicine
DX: D64.9 Anemia, unspecified (principal); R74.8 Abnormal levels of other serum enzymes

== ENCOUNTER → 2025-05-31 | Outpatient (REF) | payer MEDICARE, MEDICAID | LOC: M SFHCWOUN 17:22 | PROVIDERS: ATTEND Surgery | DX: L97.922 Non-pressure chronic ulcer of unspecified part of left lower leg with fat layer exposed (principal) ==

== ENCOUNTER → 2025-06-06 | Outpatient (REF) | payer MEDICARE, MEDICAID | LOC: M LAB REF 17:34 | PROVIDERS: ATTEND Family Medicine | DX: I50.32 Chronic diastolic (congestive) heart failure (principal); I48.20 Chronic atrial fibrillation, unspecified ==

== ENCOUNTER 2025-06-11 06:26 | Outpatient (CLI) | payer MEDICARE, MEDICAID ==
[~2025-06-11] VITALS: Ht 170.2 cm; Wt 101.3 kg
[~2025-06-11 06:26] MED LIST changes: +FUROSEMIDE 40 MG/4 ML VIAL IV ONE
[2025-06-11 08:00] VITALS: BP 134/63
[2025-06-11 09:30] VITALS: BP 139/69; TEMP 98
[2025-06-11] MEDS: FUROSEMIDE 40 MG/4 ML VIAL IV ONE (11:13)
[2025-06-11 11:15] VITALS: BP 125/65; TEMP 97
[2025-06-11 12:03] VITALS: BP 117/70; TEMP 96.8
[2025-06-11 13:36] VITALS: BP 123/68; TEMP 97; O2SAT 92
[2025-06-11 14:23] LABS: PLATELET COUNT, AUTOMATED 455 10^3/uL (150-450)
[2025-06-11 15:38] VITALS: BP 118/66; O2SAT 94
== END 2025-06-11 15:39 | disposition home or self-care (01) ==
LOC: M INFU 06:26
PROVIDERS: ATTEND Family Medicine
DX: D64.9 Anemia, unspecified (principal); Z88.8 Allergy status to other drugs, medicaments and biological substances
CPT/HCPCS: 36415; 36430; 85027; 86850; 86900; 86901; 86920; 96374; J1938; P9016